=== PATIENT | male | born 1950 | race Caucasian/White ===

== ENCOUNTER 2019-05-05 09:17 | Outpatient (RCR) | payer MEDICARE, SELFPAY | END 2019-08-03 23:59 | disposition home or self-care (01) | LOC: ANHDMC 09:17 | PROVIDERS: PCP Internal Medicine; Visit Provider Surgery | DX: E11.40 Type 2 diabetes mellitus with diabetic neuropathy, unspecified (principal); Z71.89 Other specified counseling | CPT/HCPCS: G0108 ==

== ENCOUNTER 2019-12-15 09:59 | Outpatient (CLI) | payer MEDICARE, SELFPAY ==
--- NOTE | ~2019-12-15 | CT_ITS ---
EXAMINATION: CT abdomen pelvis w con DATE: 12/15/2019 10:54 INDICATION: Low abdominal pain. Constipation. TECHNIQUE: Computed tomography (CT) of the abdomen and pelvis was performed with 100 mL Omnipaque 350 intravenous contrast. Automated exposure control and iterative reconstruction technique were employe d. The dose-length product was 1528.59 mGy-cm. COMPARISON: None. FINDINGS: The visualized portions of the lung bases demonstrate mild atelectasis. A calcified left soruav ng nodule is consistent with old granulomatous disease. No pleural effusion. The heart size is normal . No pericardial effusion. There are coronary artery calcifications. The liver, gallbladder, pancreas , adrenal glands, and kidneys are normal. Calcifications in the spleen are consistent with old granul omatous disease. The prostate is moderately enlarged. There is diverticulosis of the colon without ev idence of diverticulitis. There are no dilated loops of bowel. The appendix is not visualized. There is a small sliding hiatal hernia. There are no pathologically enlarged lymph nodes. There is no free intraperitoneal fluid. There is lumbar levoscoliosis and severe spondylosis. IMPRESSION: 1. Small sliding hiatal hernia. Reviewed, dictated and finalized at location A.
[2019-12-15 10:19] LABS: Estimated Glomerular Filt Rate 59
== END 2019-12-15 10:00 | disposition home or self-care (01) ==
LOC: CHSIMG 10:01
PROVIDERS: PCP Internal Medicine; Visit Provider Internal Medicine
DX: R10.9 Unspecified abdominal pain (principal); R19.4 Change in bowel habit
CPT/HCPCS: 74177; Q9965

== ENCOUNTER 2019-12-27 00:08 | Outpatient (CLI) | payer MEDICARE, SELFPAY ==
[2019-12-27 18:54] LABS: SARS-CoV-2 RNA PCR Negative
== END 2019-12-27 00:09 | disposition home or self-care (01) ==
LOC: ANHCOVIDDT 00:08
PROVIDERS: PCP Internal Medicine; Visit Provider Internal Medicine Gastroenterology
DX: Z01.812 Encounter for preprocedural laboratory examination (principal); Z11.59 Encounter for screening for other viral diseases
CPT/HCPCS: 87635; C9803; U0003

== ENCOUNTER 2019-12-29 01:52 | Day surgery (SDC) | payer MEDICARE, SELFPAY ==
[2019-12-23 10:58] VITALS: BMI 35.8
[2019-12-29 07:12] VITALS: BP 163/78; PULSE 58; RESP 16; TEMP 36.1; O2SAT 100; BMI 35.8
[2019-12-29] MEDS: LACTATED RINGERS 1,000 ML 150 ML IV CONT (07:30)
--- NOTE | 2019-12-29 08:05 | WPDGICN ---
Assessment and Plan Assessment and plan (1) Family history of colonic polyps: Code(s): Z83.71 - Family history of colonic polyps Status: Acute Assessment and Plan: Patient's father had colon polyps. For this reason surveillance colonoscopy has been advised every 5 years. Colonoscopy will be performed today. (2) Change in bowel habit: Code(s): R19.4 - Change in bowel habit Status: Acute Assessment and Plan: Patient reports alteration in his bowel habits. Currently on MiraLax daily which should continue. Fiber supplement such as FiberCon or Metamucil daily also advised. Further recommendations may be given after colonoscopy. GI Consult Note Consult date/time: 12/29/19 08:05 HPI: Yossi Justin is a 69 year old male Presents for screening colonoscopy. His father had colon polyps. Patient states that he has recently had difficulties with constipation. He has tried MiraLax with some relief. He denies any blood in his stools his weight has remained stable. Patient's last exam was 5 years ago was essentially unremarkable. Patient denies any abdominal pain. Review of Systems Review of Systems: All systems reviewed & are unremarkable except as noted in HPI and below Meds Home Medications and Allergies Home Medications Medication Instructions Recorded Confirmed Type fluticasone propionate 2 spray INTRANASAL DAILY 12/23/19 12/23/19 History losartan-hydrochlorothiazide 1 tablet PO DAILY 12/23/19 12/23/19 History meloxicam 15 mg PO DAILY 12/23/19 12/23/19 History metformin 500 mg PO BID 12/23/19 12/23/19 History tamsulosin 0.4 mg PO DAILY 12/23/19 12/23/19 History Allergies Allergy/AdvReac Type Severity Reaction Status Date / Time No Known Allergies Allergy Verified 12/29/19 07:11 Vital Signs Vital Signs - 24 hr 12/29/19 07:12 Temperature 36.1 C L Pulse Rate 58 L Respiratory Rate 16 Blood Pressure 163/78 H Pulse Oximetry 100 Exam Narrative: Exam Narrative: Physical exam reveals patient to be alert. Vital signs stable. HEENT exam unremarkable. Lungs are clear to auscultation and percussion. Heart is without murmur or extra sounds. Abdominal exam bowel sounds are present soft nontender with no organomegaly. Digital external rectal exam normal.
--- NOTE | 2019-12-29 08:09 | P.PNAN_ITS ---
Anes - Initial Pre Proc Eval Procedure: Operation Date: 12/29/19 08:30 Proposed Procedures p Screening Colonoscopy - Solo Andino MD Date/Time: 12/29/19 08:09 Surgeon: Solo Andino MD Pre Op Diagnosis: family hx colon polyps Patient Data Age: 69 Gender: M Height: 6 ft 3 in Weight: 130 kg Last Vital Signs Temp 97.0 F L 12/29/19 07:12 Pulse 58 L 12/29/19 07:12 Resp 16 12/29/19 07:12 BP 163/78 H 12/29/19 07:12 Pulse Ox 100 12/29/19 07:12 Allergies Allergy/AdvReac Type Severity Reaction Status Date / Time No Known Allergies Allergy Verified 12/29/19 07:11 Home Medications Medication Instructions Recorded Confirmed Type fluticasone propionate 2 spray INTRANASAL DAILY 12/23/19 12/23/19 History losartan-hydrochlorothiazide 1 tablet PO DAILY 12/23/19 12/23/19 History meloxicam 15 mg PO DAILY 12/23/19 12/23/19 History metformin 500 mg PO BID 12/23/19 12/23/19 History tamsulosin 0.4 mg PO DAILY 12/23/19 12/23/19 History Patient hx anesthesia problems: none Family hx anesthesia problems: none [facility] Past Medical History Medical History (Updated 12/29/19 @ 08:09 by Giles Kebede MD) Arthritis Diabetes Obesity Peripheral neuropathy Anes - Eval Final PreProcedure Day of Procedure 12/29/19 08:09 Patient weight: obese Heart: regular rate and rhythm Lungs: clear to auscultation Airway: Mallampati scale class III Neurological: alert and oriented Last oral intake: >/= 8 hours ASA classification: III Emergent: no Anesthetic plan: proceed Anesthesia type and monitoring: general GIVS and standard monitoring Informed Consent: The patient's anesthetic plan and its attendant risks and benefits were discussed with the patient/family/POA. Questions were solicited and answers provided to the satisfaction of the patient/family/POA.
[2019-12-29 08:58] VITALS: BP 123/70; PULSE 61; RESP 20; O2SAT 95
[2019-12-29 09:08] VITALS: BP 136/75; PULSE 53; RESP 22; O2SAT 96
[2019-12-29 09:18] VITALS: BP 147/87; PULSE 56; RESP 17; O2SAT 96
[2019-12-30 13:30] LABS: Glucose Point of Care 109 (65-105)
== END 2019-12-29 09:27 | disposition home or self-care (01) ==
PROVIDERS: PCP Internal Medicine; Visit Provider Internal Medicine Gastroenterology
PROC: 0DJD8ZZ Inspection of Lower Intestinal Tract, Via Natural or Artificial Opening Endoscopic (ICD-10-PCS; CPT 45378; principal; 2019-12-29 08:30)
DX: Z12.11 Encounter for screening for malignant neoplasm of colon (principal); K57.30 Diverticulosis of large intestine without perforation or abscess without bleeding; K64.8 Other hemorrhoids; Z83.71 Family history of colonic polyps; E11.40 Type 2 diabetes mellitus with diabetic neuropathy, unspecified; E66.9 Obesity, unspecified; Z68.35 Body mass index [BMI] 35.0-35.9, adult; Z79.84 Long term (current) use of oral hypoglycemic drugs
CPT/HCPCS: G0105; J2704; J7120

== ENCOUNTER 2020-12-25 15:19 | Outpatient (CLI) | payer MEDICARE, SELFPAY ==
--- NOTE | 2020-12-25 15:26 | ECG_ITS ---
Measurements Intervals [place] Rate: 54 P: 69 [place]: 210 QRS: -8 QRSD: 133 T: 22 QT: 412 QTc: 393 Interpretive Statements SINUS BRADYCARDIA WITH FIRST DEGREE AV BLOCK RIGHT BUNDLE BRANCH BLOCK ABNORMAL ECG Electronically Signed On 12-25-2020 15:44:07 CDT by Amrik Fonseca D.O.
== END 2020-12-25 15:20 | disposition home or self-care (01) ==
LOC: CHSCARD 15:23
PROVIDERS: PCP Internal Medicine; Visit Provider Internal Medicine Cardiovascular Disease
DX: R06.00 Dyspnea, unspecified (principal)
CPT/HCPCS: 93005

== ENCOUNTER 2021-01-15 11:10 | Outpatient (CLI) | payer MEDICARE, SELFPAY | END 2021-01-15 11:11 | disposition home or self-care (01) | LOC: CHSCARD 11:11 | PROVIDERS: PCP Internal Medicine; Visit Provider Internal Medicine Cardiovascular Disease | DX: R06.00 Dyspnea, unspecified (principal) | CPT/HCPCS: 99199 ==

== ENCOUNTER 2021-02-05 10:56 | Outpatient (CLI) | payer MEDICARE, SELFPAY ==
--- NOTE | 2021-02-05 12:30 | EST_ITS ---
Patient Info Name: Yossi Justin Age: 70 years : 1950 Gender: Male Ht: 74 in Wt: 294 lbs BSA: 2.69 m2 Exam Date: 02/05/2021 12:17 PM Exam Location: [facility] Patient Status: Outpatient Admit Date: 02/05/2021 Staff Ordering Physician: Amrik Fonseca DO Attending Provider: DO JADA Exam Type: CA stress evelyne w NM Summary 1. 1. Negative lexiscan stress test for ischemic ST changes by ECG criteria. 2. 2. Stable hemodynamics throughout the test. 3. 3. Nuclear scan to follow and will be reported separately. Please correlate with it. 4. 4. Patient informed of the above results. Protocol: LEXISCAN Stress ECG Details Stage: REST Duration (min): 1 min : 9 sec HR (bpm): 56 SBP (mmHg): 127 DBP (mmHg): 71 Stage: REST Duration (min): 16 min : 0 sec HR (bpm): 51 SBP (mmHg): 127 DBP (mmHg): 71 Stage: STAGE 1 Duration (min): 0 min : 9 sec HR (bpm): 51 SBP (mmHg): 127 DBP (mmHg): 71 Stage: RECOVERY Duration (min): 0 min : 50 sec HR (bpm): 61 SBP (mmHg): 127 DBP (mmHg): 71 Stage: RECOVERY Duration (min): 1 min : 50 sec HR (bpm): 90 SBP (mmHg): 127 DBP (mmHg): 71 Stage: RECOVERY Duration (min): 2 min : 50 sec HR (bpm): 70 SBP (mmHg): 139 DBP (mmHg): 72 Stage: RECOVERY Duration (min): 3 min : 50 sec HR (bpm): 64 SBP (mmHg): 145 DBP (mmHg): 70 Stage: RECOVERY Duration (min): 4 min : 50 sec HR (bpm): 66 SBP (mmHg): 145 DBP (mmHg): 70 Stage: RECOVERY Duration (min): 5 min : 50 sec HR (bpm): 65 SBP (mmHg): 128 DBP (mmHg): 71 Stage: RECOVERY Duration (min): 6 min : 2 sec HR (bpm): 63 SBP (mmHg): 128 DBP (mmHg): 71 Rest HR: 51 bpm Peak HR: 92 bpm Rest Sys BP: 127 mmHg Peak Sys BP: 145 mmHg Max Pred HR: 148 bpm % Max Pred HR: 62 % Target HR: 126 bpm Max RPP: 13,340 bpm*mmHg Termination Reason: Completed protocol Cardiac Symptoms: Chest pain Total Time: 0 min : 9 sec Rest Tseven BP: 71 mmHg Peak Steven BP: 70 mmHg Total Dose: 0.4 mg Resting ECG Sinus rhythm. Stress ECG No ST changes. Arrhythmias None. Report Signatures
--- NOTE | 2021-02-05 14:32 | WPDCARIOSTRE ---
Nuclear Stress Test INDICATIONS Indications: Preop, [place]. PROCEDURE Procedure Performed: Myocardial Perf Spect-Multi Procedure: Patient underwent a lexiscan stress test and immediately was injected with 33.4 mCi of cardiolyte. Multiple tomographic images were obtained. These are of good quality. There is evidence of moderate size, moderate severity inferior perfusion defect and small size, mild severity basal lateral perfusion defect during stress imaging. A separate resting images were obtained after patient was injected with 10.8 mCi of cardiolyte. Multiple tomographic images were obtained. These are of good quality. There is evidence of moderate size, moderate severity inferior perfusion defect and small size, mild severity basal lateral perfusion defect during rest imaging. CONCLUSION Conclusion: 1. Myocardial perfusion imaging demonstrates fixed moderate inferior and fixed small basal lateral defects suggestive of diaphragmatic attenuation artifacts. 2. No evidence of reversible ischemia. 3. Left ventriculogram demonstrates normal measured ejection fraction at 61%. No wall motion abnormalities. 4. TID score is normal at 0.99.
== END 2021-02-05 10:57 | disposition home or self-care (01) ==
LOC: CHSIMG 10:58
PROVIDERS: PCP Internal Medicine; Visit Provider Internal Medicine Cardiovascular Disease
DX: R06.00 Dyspnea, unspecified (principal)
CPT/HCPCS: 78452; 93017; A9502; J2785

== ENCOUNTER 2021-09-11 11:37 | Outpatient (CLI) | payer MEDICARE, SELFPAY ==
[2021-09-11 12:54] LABS: Basophils Absolute Auto 0.1 K/mm3 (0.0-0.1); Basophils Percent Auto 0.7 % (0.2-1.2); Eosinophils Absolute Auto 0.3 K/mm3 (0-0.3); Eosinophils Percent Auto 3.1 % (0-4.4); Hematocrit 41.8 % (42.0-52.0); Hemoglobin 13.7 g/dL (14.0-18.0); Immature Granulocyte Absolute 0.02 K/mm3 (0.00-0.031); Immature Granulocyte Percent A 0.2 % (0-0.5); Lymphocytes Absolute Auto 1.61 K/mm3 (0.9-3.2); Lymphocytes Percent Auto 18.4 % (18.3-44.2); Mean Corpuscular HGB Conc 32.8 g/dl (32-36); Mean Corpuscular Hemoglobin 29.1 pg (26-34); Mean Corpuscular Volume 88.9 fl (80-100); Mean Platelet Volume 8.5 fl (7.4-10.4); Monocytes Absolute Auto 0.8 K/mm3 (0.1-0.6); Monocytes Percent Auto 8.8 % (2.6-8.5); Neutrophils Percent Auto 68.8 % (45.5-73.1); Platelet Count Result 275 k/mm3 (150-375); Red Cell Distribution Width 14.4 % (11.5-14.5); White Blood Count 8.8 K/mm3 (4.5-10.0)
[2021-09-11 13:18] LABS: Hemoglobin A1C 6.1 % (<5.7)
[2021-09-11 13:47] LABS: Albumin Level 4.4 g/dL (3.5-5.1); Anion Gap 9 mmol/L (8-16); Blood Urea Nitrogen 19 mg/dL (9-20); Calcium 9.3 mg/dL (8.4-10.2); Carbon Dioxide 26 mmol/L (22-30); Chloride 94 mmol/L (98-107); Estimated Glomerular Filt Rate > 60; Glucose 99 mg/dL (65-110); Potassium 4.7 mmol/L (3.4-5.0); Sodium 129 mmol/L (137-145)
[2021-09-11 13:50] LABS: Urine Cotinine NEGATIVE
== END 2021-09-11 11:38 | disposition home or self-care (01) ==
LOC: ANHSURGERY 11:42
PROVIDERS: PCP Internal Medicine; Visit Provider Orthopaedic Surgery
DX: M17.0 Bilateral primary osteoarthritis of knee (principal); Z01.818 Encounter for other preprocedural examination
CPT/HCPCS: 80048; 80307; 82040; 83036; 85025; 86850; 86900; 86901; 87070; 87147; 87181; 87186

== ENCOUNTER 2021-09-21 07:56 | Outpatient (CLI) | payer MEDICARE, SELFPAY ==
[2021-09-21 08:33] LABS: Anion Gap 8 mmol/L (8-16); Blood Urea Nitrogen 19 mg/dL (7-18); Calcium 9.4 mg/dL (8.5-10.1); Carbon Dioxide 29 mmol/L (21-32); Chloride 97 mmol/L (98-108); Estimated Glomerular Filt Rate > 60; Glucose 109 mg/dL (70-99); Osmolality Calculated 281 mOsm/kg (285-295); Potassium 4.5 mmol/L (3.5-5.1); Sodium 134 mmol/L (136-145)
== END 2021-09-21 07:57 | disposition home or self-care (01) ==
PROVIDERS: PCP Internal Medicine; Visit Provider Internal Medicine
DX: E87.1 Hypo-osmolality and hyponatremia (principal)
CPT/HCPCS: 36415; 80048

== ENCOUNTER 2021-09-24 00:45 | Day surgery (SDC) | payer MEDICARE, SELFPAY ==
--- NOTE | 2021-09-11 11:45 | PC.NURSE ---
Report to the Outpatient Waiting Room, entrance under the green pavilion located off [facility], at time _0600_ on date _09/24/21_. OR Time: _0730_. - You and your visitor will be asked a series of questions to screen for COVID 19 for your protection. - A mask is required within the hospital. One visitor will be allowed to accompany the patient into the hospital. Patients visitor will be instructed to remain with patient at all times or leave the building. VISITING HOURS 10AM-7PM, USE MAIN ENTRANCE Preoperative COVID Testing Requirements: NONE Patients may have clear liquids (water, carbonated beverages, clear teas, apple juice) until 3 hours prior to surgery (0430 AM) with a maximum of 20 ounces. - No food from midnight until time of surgery Take the following medications with a SIP of water the morning of surgery: __EYE DROPS, PAIN PILL IF NEEDED__ Medications to discontinue per DR. CHAIDEZ - _MELOXICAM, GLUCOSAMINE CHONDROITIN 7 DAYS PRIOR TO SURGERY, LAST DOSE TO BE TAKEN ON 09/16/21__ Medications to discontinue per ANESTHESIA - _ALL VITAMINS & HERBAL SUPPLEMENTS 3 DAYS PRIOR TO SURGERY, LAST DOSE TO BE TAKEN ON 09/20/21 Please no deodorant, or body powder the day of surgery. No jewelry (including any body piercings) or valuables the day of surgery, leave them at home. Please take a shower or bath the night before, or the morning of, surgery with an antibacterial soap. Wear comfortable, loose fitting clothing. - Jewelry must be removed prior to entering the operating room. Rings and piercings that are not removed may be cut off. - The hospital will not accept responsibility for valuables. - Please leave all valuables, including medications, at home the day of surgery. If you are going home after surgery, a licensed yard driver must drive you home. - NO public transportation without another adult. - We recommend that an adult stay with you for 24 hours following discharge. - We also recommend that you do not drive, make important decision, drink alcoholic beverages, or take any drugs that were not prescribed by your health care provider for at least 24 hours after your discharge time. Follow any additional instructions given to you from your surgeon. TOTAL JOINT CLASS 09/12/21 @ [address] [place] [address], USE MAIN ENTRANCE, LOWER LEVEL Instructions given to ____PT and asked if any additional questions and then verbalized understanding. Patient advised to call surgeon office or pre surgery nurse liaisonKARINE [phone] if any additional questions.
[2021-09-11 12:39] VITALS: BP 158/86; PULSE 54; RESP 20; TEMP 36.8; O2SAT 97; BMI 35.7
--- NOTE | 2021-09-21 09:20 | PM.IMHP ---
H&P: HPI History of Present Illness Date/Time: 09/21/21 09:20 71-year-old male patient of Dr. Jeffrey who presents today for a left total knee arthroplasty and cortisone injection into the right knee. Patient has severe medial compartment osteoarthritis in both knees. His left knee is more bothersome than the right. He has had cortisone injections in his knees in the past he has also been on meloxicam daily without improvement of his symptoms. His last cortisone injections were in March of 2021. patient has reached a point where he feels he is ready to proceed with total knee arthroplasty rather continue nonsurgical treatment. Chief Complaint: Right and left knee DJD Review of Systems Review of Systems: All systems reviewed & are unremarkable except as noted in HPI and below PMFSH Past Medical History Medical History Arthritis Diabetes Obesity Peripheral neuropathy Social History Social History Smoking status: Never smoker Second hand tobacco smoke exposure: No Additional smoking assessment comments: PT DENIES ALL FORMS OF TOBACCO USE Alcohol intake: never Substance use: never Substance use type: does not use Spiritual care concerns: No Meds Home Medications and Allergies Home Medications Medication Instructions Recorded Confirmed Type fluticasone propionate 2 spray INTRANASAL DAILY PRN 12/23/19 09/11/21 History losartan-hydrochlorothiazide 0.5 tablet PO BID 12/23/19 09/11/21 History meloxicam 15 mg PO DAILY 12/23/19 09/11/21 History metformin 1,000 mg PO BID 12/23/19 09/11/21 History tamsulosin 0.4 mg PO BID 12/23/19 09/11/21 History ketorolac 0.4 % eye drops 1 drp RIGHT EYE HS 06/18/21 09/11/21 History timolol 0.5 % eye drops 1 drp RIGHT EYE Q12H 06/18/21 09/11/21 History Ebn3-B3 Suppliment 1 tab-cap DAILY 09/11/21 History apple cider vinegar 1 cap DAILY 09/11/21 09/11/21 History glucos sul 1OLz-pay-nmmdm-C-Mn 1 cap PO DAILY 09/11/21 09/11/21 History [Glucosamine Chondroitin] hydrocodone-acetaminophen 1 tablet Q4-6H PRN 09/11/21 09/11/21 History Allergies Allergy/AdvReac Type Severity Reaction Status Date / Time No Known Allergies Allergy Verified 09/11/21 11:58 Exam Narrative: 71-year-old male alert pleasant. He is 6 ft 1 in height and 284 lb. His BMI is 37.5. Left knee range of motion is from 5-120 degrees. He has mild effusion. Varus alignment is mild. He does have pseudolaxity to valgus stress. 2+ dorsalis pedis and posterior tibial artery pulse. Skin is normal and healthy. Does have history of mild neuropathy in his feet due to his diabetes. Normal quad strength. No edema in lower extremities. Resp: Auscultation: clear to auscultation bilaterally Cardio: Rate: regular rate Rhythm: regular rhythm Assessment and Plan Additional Plan 71-year-old male has severe medial compartment osteoarthritis in both knees. He has had continued symptoms and feels this point is ready to proceed with total knee arthroplasty. Surgical procedure as well as the risks and complications were discussed in detail and all questions were answered we will proceed. Patient will stop his meloxicam and any other aspirin ibuprofen products 1 week prior surgery. Patient will see his primary care doctor for pre-surgical clearance. He has seen Dr. Fonseca, the supervisor car installations and has been cleared. He had a stress test done in January of 2021 which showed no reversible ischemia. He had a fixed inferior and lateral defect. Previous EKGs have shown sinus bradycardia with 1st degree AV block and a right bundle branch block as well. He has been cleared from Cardiology. Patient's nasal swab did grow oxacillin sensitive Staph aureus and he has been decal and I zinc as of 321. his Chem panel creatinine is 1.10 rest of his Chem panel showed sodium at 129, his primary care doctor was going to retest this on 324. hemo
[2021-09-24] VITALS (18 sets, daily range): BP systolic 90–153; BP diastolic 50–86; PULSE 63–94; RESP 10–23; TEMP 35.8–36.8; O2SAT 90–99
--- NOTE | ~2021-09-24 | XR_ITS ---
EXAMINATION: XR knee LT 2V DATE: 09/24/2021 11:00 INDICATION: Total left knee arthroplasty. Postop. TECHNIQUE: 2 views of left knee were obtained. COMPARISON: Left knee radiographs 03/09/2009 FINDINGS: There is a total left knee arthroplasty without patellar resurfacing in near-anatomic align ment. No fracture. There are small osteophytes of the patella. There is gas in the knee joint and sof t tissues, consistent with recent surgery. IMPRESSION: 1. Total left knee arthroplasty in near-anatomic alignment. Reviewed, dictated and finalized at location A.
[2021-09-24] MEDS: ACETAMINOPHEN 500 MG TABLET 1000 MG PO ×3 (06:27→23:49)
[2021-09-24] MEDS: LACTATED RINGERS 1,000 ML 30 ML IV CONT ×2 (06:40→10:59)
[2021-09-24] MEDS: TRANEXAMIC ACID 1,000MG/ISO100 1,000 MG/100 ML BAG 200 MG IVPB (06:54)
--- NOTE | 2021-09-24 07:05 | WPDANESEPPF ---
Anes - Initial Pre Proc Eval Procedure: Operation Date: 09/24/21 07:30 Proposed Procedures p Left Total Knee Arthroplasty, Right Knee Cortisone Injection - Taz Doherty MD Date/Time: 09/24/21 07:05 Surgeon: Taz Doherty MD Pre Op Diagnosis: oa bilateral knees Patient Data Age: 71 Gender: M Height: 1.91 m Weight: 129.7 kg Last Vital Signs Temp 36.8 C 09/11/21 12:39 Pulse 54 L 09/11/21 12:39 Resp 20 09/11/21 12:39 BP 158/86 H 09/11/21 12:39 Pulse Ox 97 09/11/21 12:39 Allergies Allergy/AdvReac Type Severity Reaction Status Date / Time No Known Allergies Allergy Verified 09/24/21 06:28 Home Medications Medication Instructions Recorded Confirmed Type fluticasone propionate 2 spray INTRANASAL DAILY PRN 12/23/19 09/24/21 History meloxicam 15 mg PO DAILY 12/23/19 09/24/21 History metformin 1,000 mg PO BID 12/23/19 09/24/21 History tamsulosin 0.4 mg PO BID 12/23/19 09/24/21 History ketorolac 0.4 % eye drops 1 drp RIGHT EYE HS 06/18/21 09/24/21 History timolol 0.5 % eye drops 1 drp RIGHT EYE Q12H 06/18/21 09/24/21 History Ebn3-B3 Suppliment 1 tab-cap PO DAILY 09/11/21 09/24/21 History apple cider vinegar 1 cap DAILY 09/11/21 09/24/21 History glucos sul [id number]-C-Mn 1 cap PO DAILY 09/11/21 09/24/21 History [Glucosamine Chondroitin] hydrocodone-acetaminophen 1 tablet Q4-6H PRN 09/11/21 09/24/21 History hydralazine 50 mg PO TID 09/24/21 09/24/21 History ECG: Electrophysiology:: 12/18/20 Sinus bradycardia with first degree AV block, RBBB. Other studies: Stress Tests:: 02/05/21 Lexiscan myoview: No reversible ischemia. Fixed inferior and lat defects. Patient hx anesthesia problems: none Family hx anesthesia problems: none Results Review: All pre-operative results and documents have been reviewed as part of the pre-operative evaluation. [facility] Past Medical History Medical History (Updated 09/24/21 @ 07:07 by Demetrius Lucio MD) Arthritis Atrial fibrillation Diabetes Hypertension Obesity MARTHA on CPAP Peripheral neuropathy Social History Social History Smoking status: Never smoker Second hand tobacco smoke exposure: No Additional smoking assessment comments: PT DENIES ALL FORMS OF TOBACCO USE Alcohol intake: never Substance use: never Substance use type: does not use Living arrangements: with family Spiritual care concerns: No Anes - Eval Final PreProcedure Day of Procedure 09/24/21 07:05 Patient weight: obese Heart: regular rate and rhythm Lungs: clear to auscultation and normal air movement Airway: Mallampati scale class II Neurological: alert and oriented Last oral intake: >/= 8 hours ASA classification: III Emergent: no Anesthetic plan: proceed Anesthesia type and monitoring: general LMA and ETT Results Review: All pre-operative results and documents have been reviewed as part of the pre-operative evaluation. Informed Consent: The patient's anesthetic plan and its attendant risks and benefits were discussed with the patient/family/POA. Questions were solicited and answers provided to the satisfaction of the patient/family/POA.
--- NOTE | 2021-09-24 07:08 | WPDHPUPDATE1 ---
History and Physical Update Update Date/Time: 09/24/21 07:08 History and Physical has been reviewed, including an updated exam of the patient. There are NO changes in the patient's condition. Risks, benefits, and alternatives have been discussed and questions answered. Patient agrees to proceed with procedure.
[2021-09-24 07:10] LABS: Glucose Point of Care 135 mg/dl (65-105)
[2021-09-24] MEDS: ceFAZolin 3 GM/D5W 100 ML 100 ML IVPB (07:30)
[2021-09-24] MEDS: methylPREDNISolone ACETATE 80 MG/ML VIAL IM (07:53)
[2021-09-24] MEDS: ceFAZolin SODIUM 1 GM VIAL 3 GM IRRIGATION (07:54)
[2021-09-24] MEDS: TRANEXAMIC ACID 1,000 MG/10 ML AMPUL 1000 MG IV PUSH (09:56)
[2021-09-24] MEDS: ceFAZolin SODIUM 1 GM VIAL 2 GM IV PUSH (09:57)
--- NOTE | 2021-09-24 10:35 | W.PM.PROC2 ---
Procedure Note - Detailed Date of Procedure 09/24/21 Pre-op Diagnosis oa bilateral knees Post-op Diagnosis Same Procedure Performed Cortisone injection right knee, left total knee arthroplasty Surgeon Taz Doherty MD Medical Tech [facility] Anesthesia General Description of Procedure Patient was brought to the operating room and general anesthesia was administered. The right knee skin was prepped with the chlorhexidine wipes and 80 mg of Depo-Medrol and 3 cc 1% lidocaine were injected into the right knee without difficulty. Patient received 3 g of Ancef 2 g of vancomycin preoperatively 1 g of tranexamic acid. The left leg was prepped draped usual fashion. Limb was exsanguinated tourniquet elevated to 300 mmHg. An 8 in longitudinal midline incision was used and a standard parapatellar arthrotomy was utilized. Infrapatellar and suprapatellar fat pads were excised a quadriceps synovectomy carried out. The patella had normal articular cartilage. Tiny osteophytes were trimmed and a minor lateral facetectomy was performed. A guide elias was inserted down the femoral canal after aspiration of canal contents using the 5 degree valgus cutting bushing 9 mm of bone removed the distal femur. Because of wear medially this removed about 8 from the medial side. Next the tibial plateau was cut making a cut just under the articular cartilage and just under the area of bone where the medial femoral condyle this removed about 8 mm laterally. Cut was made perpendicular to the axis of the tibia. This Koul remnants were excised. Some loose bodies in the posterior compartment were removed. He had a large popliteal cyst to drain freely into the posterior aspect of the knee. Anteromedial and medial tibial osteophytes removed. In extension the knee was just slightly tighter medially than laterally. At 90? of flexion spacer block showed an 8 mm gap medially and 12 mm gap laterally. Both were tight. The femoral sizing guide was applied the femur at 5? of external rotation which matched Whitesides line posterior referencing pinholes were placed and the 75 Clan of the [employer] cutting block applied the femur AP and chamfer cuts were made and the 75 fit well. At 90? we inserted the 10 mm CR insert and it was quite tight both medially and laterally. The knee lacked about 5 or 7? of extension at this point. Therefore an additional 2 or 2-1/2 mm of bone removed from the tibial plateau. This actually got us below the remaining articular cartilage in the posterior aspect medial tibial plateau. The tibia was then punched. We sized the tibia to a size 79. The 83 tibia was just a little too big and was going to overhang about a mm either anteromedially or posterior laterally. The 75 fit nicely. We made sure there was rocking of the tray and this was punched. We then trialed and we found that now the 12 mm came out to full extension. There was 1-2 mm of medial opening 3-4 mm of lateral opening. We trialed with the 13 which lacked about 3?-4 degrees extension but still had similar play. In flexion the 13 was excellent. It allowed flexion 135 with no gapping medially or laterally on valgus or varus stress. We removed posterior femoral osteophytes and performed a central posterior capsular release from the distal femur conservatively and trialed again with a 13 and this time the knee came to full extension with a negative bounce with only 1 mm of medial opening to lateral opening in full extension. Patellar tracking was excellent. Lug holes were drilled in the femur. The step drill was used to make multiple perforations in bone of the tibial plateau and the distal femur as this bone was dense. Bony surfaces were thoroughly irrigated and dried. Using 2 batches of methylmethacrylate 1 with gentamicin powder cement was immediately applied the 79 tibial component and then the 75 left CR femoral component. Cement was applied to the tibia pressurized in the tibial component fully seated. Cement
[2021-09-24 11:25] LABS: Glucose Point of Care 140 mg/dl (65-105)
--- NOTE | 2021-09-24 13:00 | ADMGEN ---
This patient, Yossi Justin, was admitted to 2 Medical Room 260-01. Patient/family oriented to hospital policies and general routines including ID bracelet, bed and alarms, visiting hours, pain management, procedures, bathroom and other care routines, personal items, smoking policy, room service/diet, and visiting hours. Information on how to activate the Rapid Response Team has been discussed. Patient/Family are encouraged to report perceived risks to care and to ask questions if they do not understand what they are told or what they should do.
[2021-09-24] MEDS: hydrALAZINE HCL 50 MG TABLET PO ×2 (14:44→16:19)
--- NOTE | 2021-09-24 14:45 | WPDCN ---
Assessment and Plan Assessment and plan (1) Osteoarthritis of both knees: Code(s): M17.0 - Bilateral primary osteoarthritis of knee Status: Acute Assessment and Plan: Postoperative day 0. Status post right knee injection and left total knee replacement. Wound care, pain control, and DVT prophylaxis deferred to Dr. Doherty. I have ordered a 1 time dose of diazepam 5 mg to see if this will help with his spasms. PT/OT consulted. Labs ordered for a.m. (2) Type 2 diabetes mellitus: Code(s): E11.9 - Type 2 diabetes mellitus without complications Status: Acute Assessment and Plan: Well controlled with recent A1c of 6.1%. Resume Metformin. Initiate sliding scale, Accu-Cheks, and hypoglycemic protocol. (3) Hypertension: Code(s): I10 - Essential (primary) hypertension Status: Acute Assessment and Plan: Records reviewed and the stable. Resume antihypertensives and monitor blood pressures daily (4) Obstructive sleep apnea on CPAP: Code(s): G47.33 - Obstructive sleep apnea (adult) (pediatric); Z99.89 - Dependence on other enabling machines and devices Status: Acute Assessment and Plan: CPAP will be provided for the patient to use while hospitalized. (5) Benign prostatic hyperplasia: Code(s): N40.0 - Benign prostatic hyperplasia without lower urinary tract symptoms Status: Acute Assessment and Plan: Continue tamsulosin. Monitor I/O postoperatively to ensure he is not retaining urine. Additional Plan Thank you for allowing us to participate in this patient's care. Please do not hesitate to contact us with any questions. Supervising physician for this medical consultation is Dr. Javier Byrne. HPI Data of Consult Date/Time: 09/24/21 14:45 Requesting Physician: Taz Doherty MD Primary Care Provider: Gretchen Jeffrey MD Reason for consultation: Post-operative medical management. Consult Narrative Narrative: This is a very pleasant 71-year-old male with arthritis, type 2 diabetes mellitus, paroxysmal atrial fibrillation, benign prostatic hyperplasia, and obstructive sleep apnea whom the hospital service has been consulted for management of his medical conditions postoperatively. He has severe medial compartment osteoarthritis in both knees which thus far has been treated conservatively with daily meloxicam and cortisone injections. Unfortunately he continues to have pretty significant pain and in fact he has not been able to put much weight on his left leg whatsoever over the past 5 to 6 weeks due to severe pain and he elected for replacement today. His surgery was performed under general anesthesia with no immediate complications documented an estimated blood loss of 200 mL. He also received a cortisone injection into the right knee. At the time my evaluation he is not having any overt pain but he does complain of pretty significant spasms around the left knee and throughout the leg. He has been up to the bathroom and to the chair and is doing quite well in that regard. He denies paresthesias, skin color, and temperature changes of the surgical leg. He also denies postoperative fever, chills, sweats, chest pain, shortness of breath, nausea, and vomiting. Review of Systems Review of Systems: Twelve systems were reviewed. No fever, chills, or sweats. No recent cold or flu symptoms. He had a history of AFib which was attributed to untreated sleep apnea. He is now compliant with his CPAP at nighttime in he has not had a recurrence to his knowledge. He does not meet criteria for chronic anticoagulation due to his paroxysmal AFib. No history of venous thromboembolism. Diabetes is well controlled with a recent hemoglobin A1c of 6.1%. He denies blurry vision, polydipsia, and polyuria. Except as documented, all other systems were reviewed and are negative. PM
[2021-09-24] MEDS: oxyCODONE HCL (*CRX) 5 MG TAB IR PO ×2 (16:19→20:28)
[2021-09-24] MEDS: metFORMIN HCL XR 500 MG TAB.SR.24H 1000 MG PO (16:19)
[2021-09-24] MEDS: SENNA/DOCUSATE SODIUM TABLET 2 TAB PO (16:19)
[2021-09-24] MEDS: TAMSULOSIN HCL 0.4 MG CAPSULE PO (16:20)
[2021-09-24 16:31] LABS: Glucose Point of Care 266 mg/dl (65-105)
[2021-09-24] MEDS: INSULIN ASPART (*BKC) 100 UNITS/ML SUB-Q (16:31)
[2021-09-24] MEDS: FAMOTIDINE 20 MG TABLET PO (20:28)
[2021-09-24] MEDS: TIMOLOL MALEATE 0.5% OP SOLN 5 ML BOTTLE 1 DROP RIGHT EYE (20:28)
[2021-09-24 20:48] LABS: Glucose Point of Care 132 mg/dl (65-105)
[2021-09-24] MEDS: diazePAM (*CRX) 5 MG TABLET PO (23:49)
[2021-09-25] VITALS (8 sets, daily range): BP systolic 115–144; BP diastolic 55–68; PULSE 66–83; RESP 16–20; TEMP 36.2–36.5; O2SAT 94–98
[2021-09-25] MEDS: oxyCODONE HCL (*CRX) 5 MG TAB IR PO ×4 (00:26→12:46)
[2021-09-25] MEDS: ACETAMINOPHEN 500 MG TABLET 1000 MG PO ×2 (05:49→12:47)
[2021-09-25 06:09] LABS: Basophils Percent Auto 0.1 % (0.2-1.2); Hematocrit 32.6 % (42.0-52.0); Hemoglobin 10.8 g/dL (14.0-18.0); Immature Granulocyte Absolute 0.09 K/mm3 (0.00-0.031); Immature Granulocyte Percent A 0.6 % (0-0.5); Lymphocytes Absolute Auto 0.85 K/mm3 (0.9-3.2); Lymphocytes Percent Auto 5.5 % (18.3-44.2); Mean Corpuscular HGB Conc 33.1 g/dl (32-36); Mean Corpuscular Volume 87.4 fl (80-100); Mean Platelet Volume 8.7 fl (7.4-10.4); Monocytes Absolute Auto 1.3 K/mm3 (0.1-0.6); Monocytes Percent Auto 8.6 % (2.6-8.5); Neutrophils Absolute Auto 13.2 K/mm3 (1.3-6.7); Neutrophils Percent Auto 85.2 % (45.5-73.1); Platelet Count Result 263 k/mm3 (150-375); Red Blood Count 3.73 M/mm3 (4.6-6.20); Red Cell Distribution Width 14.4 % (11.5-14.5); White Blood Count 15.5 K/mm3 (4.5-10.0)
[2021-09-25 06:19] LABS: Alanine Aminotransferase 23 U/L (4-50); Albumin Level 3.7 g/dL (3.5-5.1); Alkaline Phosphatase 63 U/L (38-126); Anion Gap 8 mmol/L (8-16); Aspartate Amino Transferase 38 U/L (17-59); Bilirubin,Total 0.7 mg/dL (0.2-1.3); Blood Urea Nitrogen 23 mg/dL (9-20); Calcium 8.5 mg/dL (8.4-10.2); Carbon Dioxide 24 mmol/L (22-30); Chloride 95 mmol/L (98-107); Estimated CRCL calculation 76 ml/min; Estimated Glomerular Filt Rate > 60; Glucose 150 mg/dL (65-110); Magnesium 1.8 mg/dL (1.6-2.3); Potassium 4.6 mmol/L (3.4-5.0); Sodium 127 mmol/L (137-145)
--- NOTE | 2021-09-25 06:29 | PM.PNORT ---
Subjective Subjective Date/Time Seen: 09/25/21 06:29 POD 1 avss wd-dry pt has been up multiple times yesterday with PT as well as going to restroom, NVI, pain is controlled, pt having no nausea, will plan to have pt work with PT today then d/c to home this afternoon Objective Data Vital Signs Vital Signs: Vital Signs - 24 hr 09/24/21 10:59 09/24/21 11:15 09/24/21 11:30 Temperature 36.8 C Pulse Rate 81 79 80 Respiratory Rate 10 L 14 15 Blood Pressure 90/50 L 106/56 L 117/64 Pulse Oximetry 94 95 96 09/24/21 11:45 09/24/21 12:00 09/24/21 12:15 Temperature Pulse Rate 79 73 76 Respiratory Rate 16 14 14 Blood Pressure 125/66 136/73 129/71 Pulse Oximetry 90 92 92 09/24/21 12:30 09/24/21 12:45 09/24/21 13:00 Temperature 35.8 C L Pulse Rate 72 74 72 Respiratory Rate 18 18 16 Blood Pressure 139/80 141/81 H 137/71 Pulse Oximetry 93 95 95 09/24/21 13:10 09/24/21 13:15 09/24/21 13:45 Temperature 35.8 C L 36.5 C Pulse Rate 76 94 Respiratory Rate 18 19 18 Blood Pressure 131/83 143/86 H Pulse Oximetry 95 93 95 09/24/21 14:35 09/24/21 16:03 09/24/21 20:00 Temperature 36.2 C L Pulse Rate 88 89 89 Respiratory Rate 18 Blood Pressure 134/75 Pulse Oximetry 98 09/24/21 22:35 09/24/21 23:30 09/25/21 00:00 Temperature 36.1 C L Pulse Rate 72 81 83 Respiratory Rate 18 23 H Blood Pressure 138/58 L Pulse Oximetry 96 96 09/25/21 02:17 09/25/21 02:35 09/25/21 04:00 Temperature 36.3 C L Pulse Rate 77 79 80 Respiratory Rate 20 16 Blood Pressure 144/68 H Pulse Oximetry 94 95 Intake/Output Intake/Output: Intake & Output 09/22/21 09/23/21 09/24/21 09/25/21 23:59 23:59 23:59 23:59 Intake Total 1381 50 Balance 1381 50 Meds/Results Medications: Active Medications Generic Name Dose Route Start Last Admin Trade Name Freq PRN Reason Stop Dose Admin Acetaminophen 1,000 mg 09/24/21 18:00 09/25/21 05:49 Acetaminophen 500 Mg Tablet PO 1,000 mg Q6HR JOHN Administration Apixaban 2.5 mg 09/25/21 09:00 Apixaban 2.5 Mg Tablet PO 10/06/21 21:01 Q12HR JOHN Celecoxib 200 mg 09/25/21 08:00 Celecoxib 200 Mg Capsule PO DAILY@0800 JOHN Cephalexin HCl 500 mg 09/25/21 12:00 Cephalexin 500 Mg Capsule PO Q6HR JOHN Dextrose 12.5 gm 09/24/21 15:21 Dextrose 50% 25 Gm/50 Ml Syringe IV PUSH PRN PRN Hypoglycemia Protocol Diphenhydramine HCl 25 mg 09/24/21 12:50 Diphenhydramine Hcl Inj 50 Mg/Ml Vial IV PUSH Q6H PRN Itching Famotidine 20 mg 09/24/21 21:00 09/24/21 20:28 Famotidine 20 Mg Tablet PO 20 mg Q12HR JOHN Administration Fluticasone Propionate 2 spray 09/24/21 12:50 Fluticasone Propionate 0.05% Na Spr 16 Gm Btl (*Bkc) NASAL DAILY PRN Congestion Glucagon 1 mg 09/24/21 15:21 Glucagon For Inj 1 Mg Vial IM PRN PRN Hypoglycemia Protocol Glucose 15 gm 09/24/21 15:21 Glucose Oral Gel 15 Gm Of Glucse In 37.5 Gm Tube PO PRN PRN Hypoglycemia Protocol Hydralazine HCl 50 mg 09/24/21 14:00 09/24/21 16:19 Hydralazine Hcl 50 Mg Tablet PO 50 mg TID JOHN Administration Vancomycin HCl 1,000 mg in 250 mls @ 250 mls/hr 09/24/21 19:00 09/24/21 19:01 Vancomycin 1,000 Mg/D5w 250 Ml IVPB 09/25/21 07:59 Infused Q12H JOHN Infusion Cefazolin Sodium 1 gm in 50 mls @ 100 mls/hr 09/24/21 16:00 09/25/21 00:19 Ancef 1 Gm/D5w 50 Ml Pm IVPB 09/25/21 08:29 Infused Q8H JOHN Infusion Dextrose 1,000 mls @ 100 mls/hr 09/24/21 15:21 Dextrose 5% 1,000 Ml IVPB PRN PRN Hypoglycemia Protocol Insulin Aspart 2 - 5 units 09/24/21 17:00 09/24/21 16:31 Insulin Aspart (*Bkc) 100 Units/Ml SUB-Q 3 units TIDWM JOHN Administration Protocol Magnesium Hydroxide 30 ml 09/24/21 12:50 Magnesium Hydroxide Susp 30 Ml Udc PO BID PRN Constipation Metformin HCl 1,000 mg 09/24/21 17:00 09/24/21 16:19 Met
--- NOTE | 2021-09-25 06:35 | PM.DS ---
DS: Admitting Diagnosis Discharge Date 09/25 Admitting Diagnosis Left knee DJD DS: Summary Hospital Course Hospital Course: Stable Time Spent with Patient Time attestation: Total time spent providing and/or coordinating discharge services: 71-year-old male who underwent left total knee arthroplasty on 09/24. Underwent the procedure without complications. Postoperatively he has been afebrile vital signs are stable. Neurovascular is intact. He was up the day of surgery walking with physical therapy. He was up multiple times overnight using the restroom as well. His pain is well controlled with oxycodone 5 mg as well as scheduled Tylenol and Celebrex 200 mg. He is weight-bearing as tolerated. Patient be discharged home on 09/25. He was advised to keep leg elevated home prevent swelling but also do his exercises every hour while awake at home. Will also go home on Senokot and MiraLax as well as a ten-day course of Keflex. Patient has outpatient therapy starting on . Patient was advise any questions or concerns he is to call the office otherwise we will see him at his appointment date. His wound is dry she has a Mepilex dressing over his knee. DS: Data Data Completed and Pending Labs on day of discharge: Labs from last 24 hours 09/25/21 09/25/21 09/25/21 05:50 05:50 05:50 WBC Pending RBC Pending Hgb Pending Hct Pending MCV Pending MCH Pending MCHC Pending RDW Pending Plt Count Pending MPV Pending Immature Gran % (Auto) Pending Neut % (Auto) Pending Lymph % (Auto) Pending Cassia % (Auto) Pending Eos % (Auto) Pending Baso % (Auto) Pending Lymph # (Auto) Pending Cassia # (Auto) Pending Eos # (Auto) Pending Baso # (Auto) Pending Abs Immat Gran (auto) Pending Absolute Neuts (auto) Pending Absolute Nucleated RBC Pending Nucleated RBC % Pending Sodium 127 L Potassium 4.6 Chloride 95 L Carbon Dioxide 24 Anion Gap 8 BUN 23 H Creatinine 1.10 Estim Creat Clear Calc 76 Estimated GFR > 60 Glucose 150 H POC Capillary Glucose Hemoglobin A1c Pending Calcium 8.5 Magnesium 1.8 Total Bilirubin 0.7 Direct Bilirubin 0.0 AST 38 ALT 23 Alkaline Phosphatase 63 Total Protein 7.0 Albumin 3.7 09/24/21 09/24/21 09/24/21 20:27 16:28 11:19 WBC RBC Hgb Hct MCV MCH MCHC RDW Plt Count MPV Immature Gran % (Auto) Neut % (Auto) Lymph % (Auto) Cassia % (Auto) Eos % (Auto) Baso % (Auto) Lymph # (Auto) Cassia # (Auto) Eos # (Auto) Baso # (Auto) Abs Immat Gran (auto) Absolute Neuts (auto) Absolute Nucleated RBC Nucleated RBC % Sodium Potassium Chloride Carbon Dioxide Anion Gap BUN Creatinine Estim Creat Clear Calc Estimated GFR Glucose POC Capillary Glucose 132 H 266 H 140 H Hemoglobin A1c Calcium Magnesium Total Bilirubin Direct Bilirubin AST ALT Alkaline Phosphatase Total Protein Albumin 09/24/21 06:51 WBC RBC Hgb Hct MCV MCH MCHC RDW Plt Count MPV Immature Gran % (Auto) Neut % (Auto) Lymph % (Auto) Cassia % (Auto) Eos % (Auto) Baso % (Auto) Lymph # (Auto) Cassia # (Auto) Eos # (Auto) Baso # (Auto) Abs Immat Gran (auto) Absolute Neuts (auto) Absolute Nucleated RBC Nucleated RBC % Sodium Potassium Chloride Carbon Dioxide Anion Gap BUN Creatinine Estim Creat Clear Calc Estimated GFR Glucose POC Capillary Glucose 135 H Hemoglobin A1c Calcium Magnesium Total Bilirubin Direct Bilirubin AST ALT Alkaline Phosphatase Total Protein Albumin Discharge Plan Discharge Patient Disposition: Home, Self-Care Discharge Instructions: JULIANNE CHAIDEZ M.D [facility], [address] [address] POST-OPERATIVE D
[2021-09-25 07:39] LABS: Glucose Point of Care 180 mg/dl (65-105)
[2021-09-25] MEDS: metFORMIN HCL XR 500 MG TAB.SR.24H 1000 MG PO (08:21)
[2021-09-25] MEDS: SENNA/DOCUSATE SODIUM TABLET 2 TAB PO (08:22)
[2021-09-25] MEDS: APIXABAN 2.5 MG TABLET PO (08:22)
[2021-09-25] MEDS: hydrALAZINE HCL 50 MG TABLET PO ×2 (08:22→12:47)
[2021-09-25] MEDS: CELECOXIB 200 MG CAPSULE PO (08:22)
[2021-09-25] MEDS: polyethylene glycoL 3350 17 GM POWD.PACK PO (08:23)
[2021-09-25] MEDS: FAMOTIDINE 20 MG TABLET PO (08:23)
[2021-09-25] MEDS: TIMOLOL MALEATE 0.5% OP SOLN 5 ML BOTTLE 1 DROP RIGHT EYE (08:23)
[2021-09-25] MEDS: TAMSULOSIN HCL 0.4 MG CAPSULE PO (08:23)
--- NOTE | 2021-09-25 11:44 | WPDANESPN ---
Anes - Prog Note Post-Op Date/Time: 09/25/21 11:44 Cardiovascular status: normal Respiratory status: normal Airway patency: baseline Mental status: baseline Post-Op hydration status: normal Vital Signs: Last Vital Signs Temp 97.1 F L 09/25/21 10:36 Pulse 66 09/25/21 10:36 Resp 16 09/25/21 10:36 BP 125/58 L 09/25/21 10:36 Pulse Ox 98 09/25/21 10:36 Pain Score (VAS): 10 I/O: Intake & Output 09/24/21 09/25/21 09/25/21 23:59 07:59 15:59 Intake Total 781 800 240 Output Total 400 Balance 781 400 240 Laboratory Tests 09/25/21 05:50 09/25/21 05:50 09/24/21 09/24/21 09/25/21 16:28 20:27 05:50 WBC 15.5 H RBC 3.73 L Hgb 10.8 L Hct 32.6 L MCV 87.4 MCH 29.0 MCHC 33.1 RDW 14.4 Plt Count 263 MPV 8.7 Immature Gran % (Auto) 0.6 H Neut % (Auto) 85.2 H Lymph % (Auto) 5.5 L Gates % (Auto) 8.6 H Eos % (Auto) 0.0 Baso % (Auto) 0.1 L Lymph # (Auto) 0.85 L Gates # (Auto) 1.3 H Eos # (Auto) 0.0 Baso # (Auto) 0.0 Abs Immat Gran (auto) 0.09 H Absolute Neuts (auto) 13.2 H Absolute Nucleated RBC 0.0 Nucleated RBC % 0.0 Sodium Potassium Chloride Carbon Dioxide Anion Gap BUN Creatinine Estim Creat Clear Calc Estimated GFR Glucose POC Capillary Glucose 266 H 132 H Hemoglobin A1c Calcium Magnesium Total Bilirubin Direct Bilirubin AST ALT Alkaline Phosphatase Total Protein Albumin 09/25/21 09/25/21 09/25/21 05:50 05:50 07:37 WBC RBC Hgb Hct MCV MCH MCHC RDW Plt Count MPV Immature Gran % (Auto) Neut % (Auto) Lymph % (Auto) Gates % (Auto) Eos % (Auto) Baso % (Auto) Lymph # (Auto) Gates # (Auto) Eos # (Auto) Baso # (Auto) Abs Immat Gran (auto) Absolute Neuts (auto) Absolute Nucleated RBC Nucleated RBC % Sodium 127 L Potassium 4.6 Chloride 95 L Carbon Dioxide 24 Anion Gap 8 BUN 23 H Creatinine 1.10 Estim Creat Clear Calc 76 Estimated GFR > 60 Glucose 150 H POC Capillary Glucose 180 H Hemoglobin A1c 6.0 H Calcium 8.5 Magnesium 1.8 Total Bilirubin 0.7 Direct Bilirubin 0.0 AST 38 ALT 23 Alkaline Phosphatase 63 Total Protein 7.0 Albumin 3.7 Post-procedural complaints: none Patient Feedback: Patient satisfied with anesthetic care. pt states no pain at rest, however, pain increased to 11 1/2 with movement & therapy
[2021-09-25 11:52] LABS: Glucose Point of Care 107 mg/dl (65-105)
[2021-09-25] MEDS: CEPHALEXIN 500 MG CAPSULE PO (12:47)
--- NOTE | 2021-09-25 13:50 | PM.IMPN ---
Progress Note: A&P Assessment and Plan (1) Osteoarthritis of both knees: Code(s): M17.0 - Bilateral primary osteoarthritis of knee Status: Acute Assessment and Plan: Postoperative day one. Status post right knee injection and left total knee replacement. Wound care, pain control, and DVT prophylaxis deferred to Dr. Doherty. PT/OT consulted. Labs reviewed from this a.m. mild hyponatremia noted likely due to pain recheck labs as an outpatient basis if he goes home (2) Type 2 diabetes mellitus: Code(s): E11.9 - Type 2 diabetes mellitus without complications Status: Acute Assessment and Plan: Well controlled with recent A1c of 6.1%. Resume Metformin. Initiate sliding scale, Accu-Cheks, and hypoglycemic protocol. (3) Hypertension: Code(s): I10 - Essential (primary) hypertension Status: Acute Assessment and Plan: Records reviewed and the stable. Resume antihypertensives and monitor blood pressures daily (4) Obstructive sleep apnea on CPAP: Code(s): G47.33 - Obstructive sleep apnea (adult) (pediatric); Z99.89 - Dependence on other enabling machines and devices Status: Acute Assessment and Plan: CPAP will be provided for the patient to use while hospitalized. (5) Benign prostatic hyperplasia: Code(s): N40.0 - Benign prostatic hyperplasia without lower urinary tract symptoms Status: Acute Assessment and Plan: Continue tamsulosin. Monitor I/O postoperatively to ensure he is not retaining urine. Subjective Date/time seen: 09/25/21 13:50 Interval history: HPI: This is a very pleasant 71-year-old male with arthritis, type 2 diabetes mellitus, paroxysmal atrial fibrillation, benign prostatic hyperplasia, and obstructive sleep apnea whom the hospital service has been consulted for management of his medical conditions postoperatively. He has severe medial compartment osteoarthritis in both knees which thus far has been treated conservatively with daily meloxicam and cortisone injections. Unfortunately he continues to have pretty significant pain and in fact he has not been able to put much weight on his left leg whatsoever over the past 5 to 6 weeks due to severe pain and he elected for replacement today. His surgery was performed under general anesthesia with no immediate complications documented an estimated blood loss of 200 mL. He also received a cortisone injection into the right knee. At the time my evaluation he is not having any overt pain but he does complain of pretty significant spasms around the left knee and throughout the leg. He has been up to the bathroom and to the chair and is doing quite well in that regard. He denies paresthesias, skin color, and temperature changes of the surgical leg. He also denies postoperative fever, chills, sweats, chest pain, shortness of breath, nausea, and vomiting. 09/25/21 doing well. No new complaints uses CPAP at night. Has borderline diabetes. Pain is well controlled Review of Systems Review of Systems: All systems reviewed & are unremarkable except as noted in HPI and below (HPI) Exam Narrative: General: Well-developed male in the semi-Mendez position in bed in no distress. HEENT: Wearing glasses. PERRL, EOMI. Sclerae anicteric. Oral mucosa moist. Neck: Supple. Nontender Respiratory: Lungs are clear to auscultation bilaterally. Cardiovascular: Regular rate and rhythm with S1-S2. Gastrointestinal: Abdomen is soft, nontender, and nondistended with positive bowel sounds. Skin: Warm and dry. No rash or lesions on limited exam. Extremities: No cyanosis, clubbing, or edema. Radial and pedal pulses intact. Musculoskeletal: Left knee is surgically dressed. He is neurovascularly intact distal to the surgical site. Neurological: Alert. Cranial nerves 2-12 grossly intact. No gross focal deficits to casual conversation. Psychiatric: Pleasant and cooperative with normal mood and affect. J
== END 2021-09-25 17:16 | disposition home or self-care (01) ==
LOC: ANHSURGERY 06:02 → ANH2MED 12:52
PROVIDERS: Physician Assistant; Physician Assistant Surgical; PCP Internal Medicine; Visit Provider Orthopaedic Surgery
PROC: (CPT 27447; principal; 2021-09-24 07:30)
DX: M17.0 Bilateral primary osteoarthritis of knee (principal); M62.838 Other muscle spasm; I10 Essential (primary) hypertension; I48.91 Unspecified atrial fibrillation; G47.33 Obstructive sleep apnea (adult) (pediatric); E11.42 Type 2 diabetes mellitus with diabetic polyneuropathy; N40.0 Benign prostatic hyperplasia without lower urinary tract symptoms; Z79.84 Long term (current) use of oral hypoglycemic drugs; E66.9 Obesity, unspecified; Z68.35 Body mass index [BMI] 35.0-35.9, adult; Z99.89 Dependence on other enabling machines and devices
CPT/HCPCS: 27447; 20610; 36415; 73560; 80048; 80076; 80307; 82040; 82948; 83036; 83735; 85025; 86850; 86900; 86901; 87070; 87147; 87181; 87186; 97110; 97116; 97161; 97165; 97530; 97535; A9270; C1713; C1776; J0171; J0690; J1040; J1100; J1170; J1815; J1885; J2001; J2250; J2270; J2405; J2704; J2795; J3010; J3370; J7120

== ENCOUNTER 2021-09-27 12:49 | Outpatient (RCR) | payer MEDICARE, SELFPAY ==
--- NOTE | 2021-09-27 13:58 | PTOPEVAL ---
Thank you for referring Yossi Justin to [facility].? The patient is scheduled to be seen for therapy? ____x/week for ___ weeks. Please review, sign, date and return this plan of care CURRY. I agree with and certify that the following plan of care is medically necessary. Referring Physician Date Admitting Provider: Attending Provider: Taz Doherty MD Referring Provider: *PT Outpatient Evaluation Start: 09/27/21 13:24 Freq: Status: Active Protocol: Document 09/27/21 13:15 [facility] (Rec: 09/27/21 13:57 [facility] [id number]) Therapy Assessment Status Assessment Status Assessment Status Evaluation Outpatient Past Medical History Neurological History Hx Other Neurological Disorders Yes: NEUROPATHY BILATERAL FEET Cardiovascular History Hx Atrial Fibrillation Yes Hx Hypertension Yes Hx Other Cardiac Disorders Yes: G[employer] DR[employer] ELIAS Respiratory History Hx Sleep Apnea Yes: UTILIZES CPAP Gastrointestinal History Hx Appendectomy Yes Hx Other Gastrointestinal Disorders Yes: CONSTIPATION Genitourinary History Hx Benign Prostatic Hyperplasia Yes Hx Other Genitourinary Disorders Yes: FREQUENT URINATION, MODERATE URINARY INCONTINENCE Musculoskeletal History Hx Arthritis Yes: KNEES Hx Fractures Yes: RT HAND-NO SURGERY Hx Other Musculoskeletal Disorders Yes: AMBULATES WITH CANE Hematological History Hx Hematological Disorders No Significant History Endocrine History Hx Diabetes Yes HEENT History Hx Glaucoma Yes Hx Tonsillectomy Yes Hx Eye Surgery Yes: RT EYE HISTOLASMOSIS INJECTION EVERY 12 WEEKS Hx Other HEENT Disorders Yes: GLASSES Integumentary History Hx Other Skin Disorders Yes: HEALING 1/2 SKIN TEAR TO TOP OF RT HAND Reproductive History Hx Reproductive Disorders No Significant History Psychosocial History Hx Psychiatric Disorders No Significant History Pain History Has Past Pain Affected Your Daily Life Yes: KNEES History of Long-Term Prescription Pain Yes: HYDROCODONE STARTED DEC Medication Use (Opiates) 2020-STATES USED VERY RARELY Anesthesia History Hx Anesthesia Reactions No Significant History Evaluation Information Problem Diagnosis s/p L TKA Onset 09/24/21 Additional Evaluation Detail LEFS = 90% functionally declined Subjective Information patient reports he had knee Query Text:As Reported By Patient/ replacement on 09/24/21 due to Family bone on bone arthritis of the L knee. he reports he is having pain in the L knee,
== END 2021-11-01 14:47 | disposition home or self-care (01) ==
LOC: CHSPT 12:49
PROVIDERS: Visit Provider Orthopaedic Surgery
DX: Z96.652 Presence of left artificial knee joint (principal)
CPT/HCPCS: 97016; 97110; 97161; 97530

== ENCOUNTER 2022-04-25 09:55 | Outpatient (CLI) | payer MEDICARE, SELFPAY ==
--- NOTE | ~2022-04-25 | CT_ITS ---
EXAMINATION: CT sinus wo con DATE: 04/25/2022 10:08 INDICATION: Chronic sinusitis TECHNIQUE: Computed tomography (CT) of the paranasal sinuses was performed without contrast. Iterativ e reconstruction technique was employed. Exam dose: 268.17 mGy-cm total exam DLP. COMPARISON: None FINDINGS: There is rightward bowing of the nasal septum. There is asymmetric soft tissue swelling of the left middle and inferior nasal turbinates compared to the right counterparts. There is minimal mucoperiosteal thickening of the frontal sinuses, mild to moderate mucoperiosteal th ickening in the ethmoid sinuses. There is focal primarily inferior mucoperiosteal thickening of the r ight maxillary sinus and more prominent mucoperiosteal thickening of the left maxillary sinus particu larly in the region of the ostium and along the middle and inferior garcia. The right estimated complex is patent. There is mild soft tissue thickening of the left maxillary ostium and infundibulum but the left ostio meatal complex is patent. The mastoid air cells are normally developed and aerated bilaterally. The left sphenoid sinus is comp letely opacified. The right sphenoid sinus is clear with the exception of minimal focal inferomedial mucoperiosteal thickening. IMPRESSION: Minimal bilateral frontal, mild bilateral ethmoid, mild to moderate maxillary mucoperios teal thickening and complete opacification of left sphenoid sinus Mild mucosal periosteal thickening of the left maxillary ostium and infundibulum Rightward bowing of the nasal septum Asymmetric moderate soft tissue swelling of the left nasal turbinates Reviewed, dictated and finalized at [facility]. Reviewed, dictated and finalized at location A. IMPRESSION: Minimal bilateral frontal, mild bilateral ethmoid, mild to moderat e maxillary mucoperiosteal thickening and complete opacification of left spheno id sinus Mild mucosal periosteal thickening of the left maxillary ostium and infundibulu m Rightward bowing of the nasal septum Asymmetric moderate soft tissue swelling of the left nasal turbinates
== END 2022-04-25 09:56 | disposition home or self-care (01) ==
LOC: CHSIMG 09:56
PROVIDERS: PCP Internal Medicine; Visit Provider Internal Medicine
DX: J32.9 Chronic sinusitis, unspecified (principal)
CPT/HCPCS: 70486

== ENCOUNTER 2022-08-13 12:34 | Outpatient (CLI) | payer MEDICARE, SELFPAY ==
--- NOTE | 2022-09-11 14:16 | WPDHOLTEREM ---
Holter/Event Monitor Holter/Event Monitor Date of procedure: 08/13/22 Holter/Event Procedure: Event Monitor Indications: Abnormal heart beat Conclusion: 1. 28 days event monitor between 08/13/22-09/11/22. There are 28 available transmissions for analysis. 2. Predominant rhythm is sinus rhythm. HR range 36-130 bpm; average HR 74 bpm. HR at 36 bpm was on 09/07/22 at 04:35. 3. There are frequent premature supraventricular complexes with total burden of 8%. There are 1,402 episodes of atrial fibrillation with a burden of 27%, fastest at 120 bpm and longest lasting 2 hours and 27 minutes. 4. There are occasional premature ventricular complexes with total burden of 1%. No ventricular tachycardia. 5. The longest pause is 2.1 seconds due to a sinus pause on 09/06/22 at 03:23. Underlying first degree AV block. 6. Patient reports 1 episode of symptom other than listed which demonstrate sinus bradycardia at 59 bpm with PAC's.
== END 2022-08-13 12:35 | disposition home or self-care (01) ==
LOC: CHSCARD 12:36
PROVIDERS: PCP Internal Medicine; Visit Provider Internal Medicine
DX: I49.9 Cardiac arrhythmia, unspecified (principal)
CPT/HCPCS: 93270

== ENCOUNTER 2022-08-14 14:28 | Outpatient (CLI) | payer MEDICARE, SELFPAY ==
[2022-08-14 14:48] LABS: Basophils Absolute Auto 0.03 K/mm3 (0.00-0.10); Basophils Percent Auto 0.3 % (0.0-1.0); Eosinophils Absolute Auto 0.17 K/mm3 (0.02-0.50); Eosinophils Percent Auto 1.9 % (1.0-6.0); Hematocrit 40.5 % (37.0-46.0); Hemoglobin 13.5 g/dL (12.4-15.3); Immature Granulocyte Absolute 0.03 K/mm3 (0.00-0.00); Immature Granulocyte Percent A 0.3 % (0.0-0.0); Lymphocytes Absolute Auto 1.03 K/mm3 (1.10-4.50); Lymphocytes Percent Auto 11.3 % (18.0-42.0); Mean Corpuscular HGB Conc 33.3 g/dL (32.0-36.0); Mean Corpuscular Volume 87.1 fL (78.0-102.0); Mean Platelet Volume 8.4 fl (8.7-11.0); Monocytes Absolute Auto 0.58 K/mm3 (0.10-0.90); Monocytes Percent Auto 6.4 % (2.0-11.0); Neutrophils Absolute Auto 7.2 K/mm3 (1.7-7.2); Neutrophils Percent Auto 79.8 % (50.0-70.0); Platelet Count Result 295 K/mm3 (150-420); Red Blood Count 4.65 M/mm3 (4.70-6.10); Red Cell Distribution Width 13.6 % (11.6-14.4); White Blood Count 9.1 K/mm3 (4.8-10.8)
[2022-08-14 15:03] LABS: Partial Thromboplastin Time 29.9 SEC (23.90-30.70); Prothrombin Time 11.1 Seconds (9.50-12.10)
[2022-08-14 15:42] LABS: Alanine Aminotransferase 34 U/L (16-63); Albumin Level 4.1 g/dL (3.4-5.0); Alkaline Phosphatase 103 U/L (46-116); Anion Gap 9 mmol/L (8-16); Aspartate Amino Transferase 27 U/L (15-37); Bilirubin,Total 0.4 mg/dL (0.00-1.00); Blood Urea Nitrogen 22 mg/dL (7-18); Calcium 9.4 mg/dL (8.5-10.1); Carbon Dioxide 25 mmol/L (21-32); Chloride 97 mmol/L (98-108); Estimated Glomerular Filt Rate 52; Glucose 145 mg/dL (70-99); NT Pro B Type Natriuretic Pept 63 pg/mL (0-125); Osmolality Calculated 278 mOsm/kg (285-295); Potassium 4.2 mmol/L (3.5-5.1); Sodium 131 mmol/L (136-145); Total Protein 7.8 g/dL (6.4-8.2)
== END 2022-08-14 14:29 | disposition home or self-care (01) ==
LOC: CHSLAB 14:30
PROVIDERS: PCP Internal Medicine; Visit Provider Internal Medicine
DX: E87.1 Hypo-osmolality and hyponatremia (principal); I50.9 Heart failure, unspecified
CPT/HCPCS: 36415; 80053; 83735; 83880; 85025; 85610; 85730

== ENCOUNTER 2022-08-27 08:15 | Outpatient (CLI) | payer MEDICARE, SELFPAY ==
--- NOTE | ~2022-08-27 | XR_ITS ---
EXAMINATION: UGI AIR CONTRAST W/ ESOPHAGRAM DATE: 09/11/07 09:43:00 INDICATION: Difficulty swallowing. Patient with nausea and weight loss. TECHNIQUE: Thin barium contrast with gas effervescent crystals were administered orally. Fluoroscopi c images of the esophagus, stomach, and proximal duodenum were obtained in various projections. The h ypopharynx was also imaged. Thereafter, overhead images of the thoracic esophagus and abdomen were pe rformed. 52 images. 1.1 minutes of fluoroscopy time. FINDINGS: The esophagus is normal in caliber, without mucosal lesions or strictures. There is normal esophagea l peristalsis. There is a small sliding hiatal hernia with gastroesophageal reflux. The hypopharynx i s normal. The gastric folds are normal. The proximal duodenum is also normal in appearance. IMPRESSION: 1. Small sliding hiatal hernia with gastroesophageal reflux. Reviewed, dictated and finalized at location L. ISH MASSEUSE
== END 2022-08-27 08:16 | disposition home or self-care (01) ==
LOC: CHSIMG 08:17
PROVIDERS: PCP Internal Medicine; Visit Provider Internal Medicine
DX: R13.10 Dysphagia, unspecified (principal); K44.9 Diaphragmatic hernia without obstruction or gangrene
CPT/HCPCS: 74240

== ENCOUNTER 2022-10-05 10:02 | Outpatient (CLI) | payer MEDICARE, SELFPAY ==
--- NOTE | ~2022-10-05 | MR_ITS ---
MRI of the cervical spine Clinical History: Bilateral hand numbness Technique: Axial T2-weighted and gradient images, and sagittal T1-weighted, T2-weighted, and STIR alysia ges were acquired. Findings: No fracture or subluxation seen. Vertebral bodies maintain normal height and alignment. No suspicious bone marrow signal abnormality seen. At C2-C3, there is small central disc protrusion. No spinal canal stenosis, cord compression, or neur al foraminal narrowing. At C3-C4, there is central disc osteophyte complex, with minimal flattening the ventral cord. There i s mild bilateral neural foraminal narrowing. At C4-C5, there is a central disc protrusion, which minimally abuts the ventral cord. There is bilate ral neural foraminal narrowing, left worse than right. At C5-C6, there is mild disc osteophyte complex with facet arthropathy. There is bilateral neural for aminal narrowing. No zuleyma spinal canal stenosis or cord compression. At C6-C7, there is disc ossify complex, with minimal flattening the ventral cord. There is bilateral neural foraminal narrowing, right worse than left. No abnormal signal seen in the spinal cord. Paravertebral soft tissues are unremarkable. Impression: Mild to moderate degenerative spondylitic changes, as detailed above. No fracture or subluxation. Reviewed, dictated and finalized at [facility].
[2022-10-05 10:42] LABS: CRP < 0.5 mg/dL (0.0-0.9)
[2022-10-05 11:18] LABS: Vitamin B12 1334 pg/mL (193-986)
[2022-10-05 11:22] LABS: Erythrocyte Sedimentation Rate 16 mm/hr (0-20)
[2022-10-09 18:13] LABS: Albumin 3.8 g/dL (3.8-4.8); Alpha 1 Globulin 0.3 g/dL (0.2-0.3); Alpha 2 Globulin 0.8 g/dL (0.5-0.9); Beta 1 Globulin 0.5 g/dL (0.4-0.6); Gamma Globulin 1.1 g/dL (0.8-1.7); Protein, Total 6.8 g/dL (6.1-8.1)
[2022-10-10 19:55] LABS: Creatinine, Random Urine 102 mg/dL (20-320); Total Protein/Creatinine Ratio 78 mg/g creat (25-148)
[2022-10-11 15:16] LABS: Vitamin B6 75.6 ng/mL (2.1-21.7)
== END 2022-10-05 10:03 | disposition home or self-care (01) ==
PROVIDERS: PCP Internal Medicine
DX: G60.9 Hereditary and idiopathic neuropathy, unspecified (principal); R20.0 Anesthesia of skin; M54.2 Cervicalgia; M26.81 Anterior soft tissue impingement
CPT/HCPCS: 36415; 82570; 82607; 84155; 84156; 84165; 84166; 84207; 85652; 86038; 86140; 86334

== ENCOUNTER 2022-10-08 07:45 | Outpatient (CLI) | payer MEDICARE, SELFPAY ==
--- NOTE | 2022-10-08 07:50 | ECG_ITS ---
Measurements Intervals [place] Rate: 51 P: -44 MN: 176 QRS: -24 QRSD: 162 T: 35 QT: 447 QTc: 415 Interpretive Statements SINUS BRADYCARDIA WITH OCCASIONAL SUPRAVENTRICULAR PREMATURE COMPLEXES RIGHT BUNDLE BRANCH BLOCK ABNORMAL ECG COMPARED TO ECG 12/25/2020 15:35:04 NO SIGNIFICANT CHANGES Electronically Signed On 10-08-2022 15:47:59 CDT by Amauri Greene M.D.
== END 2022-10-08 07:46 | disposition home or self-care (01) ==
LOC: CHSCARD 07:47
PROVIDERS: PCP Internal Medicine; Visit Provider Internal Medicine Cardiovascular Disease
DX: I48.0 Paroxysmal atrial fibrillation (principal); R00.1 Bradycardia, unspecified; I45.10 Unspecified right bundle-branch block; R94.31 Abnormal electrocardiogram [ECG] [EKG]
CPT/HCPCS: 93005

== ENCOUNTER 2022-10-17 10:41 | Outpatient (CLI) | payer MEDICARE, SELFPAY ==
--- NOTE | ~2022-10-17 | MR_ITS ---
MRI of the cervical spine Clinical History: Bilateral hand numbness Technique: Axial T2-weighted and gradient images, and sagittal T1-weighted, T2-weighted, and STIR alysia ges were acquired. Findings: No fracture or subluxation seen. Vertebral bodies maintain normal height and alignment. No suspicious bone marrow signal abnormality seen. At C2-C3, there is small central disc protrusion. No spinal canal stenosis, cord compression, or neur al foraminal narrowing. At C3-C4, there is central disc osteophyte complex, with minimal flattening the ventral cord. There i s mild bilateral neural foraminal narrowing. At C4-C5, there is a central disc protrusion, which minimally abuts the ventral cord. There is bilate ral neural foraminal narrowing, left worse than right. At C5-C6, there is mild disc osteophyte complex with facet arthropathy. There is bilateral neural for aminal narrowing. No zuleyma spinal canal stenosis or cord compression. At C6-C7, there is disc ossify complex, with minimal flattening the ventral cord. There is bilateral neural foraminal narrowing, right worse than left. No abnormal signal seen in the spinal cord. Paravertebral soft tissues are unremarkable. Impression: Mild to moderate degenerative spondylitic changes, as detailed above. No fracture or subluxation. Reviewed, dictated and finalized at [facility]. Impression: Mild to moderate degenerative spondylitic changes, as detailed above. No fracture or subluxation.
== END 2022-10-17 10:42 | disposition home or self-care (01) ==
LOC: CHSIMG 10:43
PROVIDERS: PCP Internal Medicine
DX: R20.0 Anesthesia of skin (principal); M54.2 Cervicalgia; R26.81 Unsteadiness on feet
CPT/HCPCS: 72141

== ENCOUNTER 2022-11-05 08:08 | Outpatient (CLI) | payer MEDICARE, SELFPAY ==
--- NOTE | 2022-11-05 08:16 | ECG_ITS ---
Measurements Intervals [place] Rate: 49 P: -62 DC: 168 QRS: -9 QRSD: 149 T: 48 QT: 458 QTc: 414 Interpretive Statements SINUS BRADYCARDIA RIGHT BUNDLE BRANCH BLOCK BASELINE ARTIFACT- II, III ABNORMAL ECG COMPARED TO ECG 10/08/2022 08:02:30 NO SIGNIFICANT CHANGES Electronically Signed On 11-05-2022 9:52:06 CDT by Amrik Fonseca D.O.
== END 2022-11-05 08:09 | disposition home or self-care (01) ==
LOC: CHSCARD 08:11
PROVIDERS: PCP Internal Medicine; Visit Provider Internal Medicine Cardiovascular Disease
DX: I48.0 Paroxysmal atrial fibrillation (principal); R94.31 Abnormal electrocardiogram [ECG] [EKG]; I45.10 Unspecified right bundle-branch block
CPT/HCPCS: 93005

== ENCOUNTER 2023-03-14 08:08 | Outpatient (CLI) | payer MEDICARE, SELFPAY ==
--- NOTE | 2023-03-14 08:16 | ECG_ITS ---
Measurements Intervals [place] Rate: 67 P: 91 OK: 267 QRS: -2 QRSD: 165 T: 11 QT: 435 QTc: 461 Interpretive Statements SINUS RHYTHM WITH FIRST DEGREE AV BLOCK RIGHT BUNDLE BRANCH BLOCK CONSIDER INFERIOR INFARCT, AGE INDETERMINATE BASELINE ARTIFACT- I, III, AVR, AVL, AVF ABNORMAL ECG COMPARED TO ECG 11/05/2022 08:26:49 SINUS RHYTHM NOW PRESENT FIRST DEGREE AV BLOCK NOW PRESENT Electronically Signed On 03-14-2023 8:38:57 CDT by Amrik Fonseca D.O.
== END 2023-03-14 08:09 | disposition home or self-care (01) ==
LOC: CHSCARD 08:11
PROVIDERS: PCP Internal Medicine; Visit Provider Internal Medicine Cardiovascular Disease
DX: I48.0 Paroxysmal atrial fibrillation (principal); R94.31 Abnormal electrocardiogram [ECG] [EKG]; I45.10 Unspecified right bundle-branch block
CPT/HCPCS: 93005

== ENCOUNTER 2023-12-17 08:04 | Outpatient (RCR) | payer MEDICARE, SELFPAY ==
--- NOTE | 2023-12-17 09:14 | OPREHPOC ---
Outpatient Therapy Plan of Care This is a Multidisciplinary Plan of Care that may contain components documented by all disciplines (PT, OT, and ST.) PT Problem 1 PT Problem #1 Knowledge Deficit PT Goal 1 Goal 1. independent and compliant with HEP Target Visit 6 PT Problem 2 PT Problem #2 Impaired Strength PT Goal 1 Goal 1. improve bilateral DF to 5/5 2. improve bilateral hip strength to 4+/5 overall Target Visit 12 PT Problem 3 PT Problem #3 Impaired Balance PT Goal 1 Goal 1. tinetti to display moderate fall risk or less 2. tug to be completed in under 15 seconds 3. 5x sit to stand to be completed in 15 seconds or less Target Visit 12 PT Problem 4 PT Problem #4 Impaired Functional Mobil PT Goal 1 Goal 1. patient to complete 1000ft ambulation in 6 minutes with cane 2. no LOB in the last 2 weeks Target Visit 12
--- NOTE | 2023-12-17 09:15 | PTOPEVAL1 ---
Assessment and note entered by JT File, PT Evaluation Information Assessment Status Evaluation Diagnosis ataxia, neuropathy Onset 12/15/23 Subjective Information patient reports he is coming to therapy for neuropathy. he reports he has been having issues with his feet for years, but now his symptoms have crept up to his knees and legs. he reports he feels he waddles around and has less strength and endurance. he reports he is trying to get stronger and build back his endurance. he reports he is able to walk his dog short distances. he reports he is more worn out in the afternoon. he reports he does not have pins and needles in his legs, but maybe slight tingling. he reports his height is shrinking. he does not have back pain. he has a history of sciatic pain, L knee replacement, HTN, and diabetes. he reports his back has not bothered him for years. he reports he has been struggling with balance and nearly fallen several times. he reports he is cautious to walk as he is on blood thinners and is afraid of falling. he reports he has been using a cane only and no walker to stand/ ambulate. Reported Pain Level Pain Score 0: Self Report Assessment PT Clinical Summary mr. chanel is a 73 yo man who presents to skilled PT services for evaluation and treatment of neuropathy and ataxia. he presents today with LE weakness, decreased endurance, and high fall risk per the tinetti, tug, and 5x sit to stand. he complains of symptoms in the bilateral LE's that increase with activity. these symptoms are likely the result of bilateral LE neuropathy or lumbar DDD. he would benefit from continued skilled PT to address his objective/functional deficits and improve his balance, strength, endurance, and functional activity performance to improve his quality of life and daily activity performance. Plan of Care Interventions Gait Training,Neuro Re-education,Patient/Caregiver Educati,Therapeutic Activities,Therapeutic Exercise PT Services Indicated Yes Treatment Frequency and 3x weekly for 12 visits Duration These treatments will address the objective and functional deficits as defined above. The patient will be advanced safely and appropriately in order for the patient to progress towards his/her prior level of function. Additional exercises will be introduced and as well as a comprehensive home exercise program upon discharge, if nee
--- NOTE | 2024-01-14 14:39 | OPREHPOC ---
Outpatient Therapy Plan of Care This is a Multidisciplinary Plan of Care that may contain components documented by all disciplines (PT, OT, and ST.) PT Problem 1 PT Problem #1 Knowledge Deficit PT Goal 1 Goal 1. independent and compliant with HEP Target Visit 6 Progress Met PT Problem 2 PT Problem #2 Impaired Strength PT Goal 1 Goal 1. improve bilateral DF to 5/5 2. improve bilateral hip strength to 4+/5 overall Target Visit 12 Progress Not Met PT Problem 3 PT Problem #3 Impaired Balance PT Goal 1 Goal 1. tinetti to display moderate fall risk or less - not met 2. tug to be completed in under 15 seconds -met 3. 5x sit to stand to be completed in 15 seconds or less -not met Target Visit 12 Progress Partially Met PT Problem 4 PT Problem #4 Impaired Functional Mobil PT Goal 1 Goal 1. patient to complete 1000ft ambulation in 6 minutes with cane -not met 2. no LOB in the last 2 weeks -met Target Visit 12 Progress Partially Met
--- NOTE | 2024-01-14 14:39 | PTOPPROG ---
Assessment and note entered by Alka Mantilla, PT Evaluation Information Assessment Status Progress Diagnosis ataxia, neuropathy Other ICD-10 Condition Codes ( R27.0 PT) Onset 12/15/23 Subjective Information Yossi Justin reports that he continues to have balance issues. He has not had any falls though. He feels PT may be helping his strength but his balance seems unchanged. He also notes decreased endurance with household activities. Assessment PT Clinical Summary Yossi Justin has completed 10 skilled PT visits for ataxia and neuropathy. He is reporting improved strength however, he still has decreased balance and decreased endurance with household activities. He objectively demonstrates continued deficits in static and dynamic balance, impaired gait, and decreased LE strength. He will continue to benefit from skilled PT to address these limitations. Plan of Care Interventions Gait Training,Neuro Re-education,Patient/Caregiver Educati,Therapeutic Activities,Therapeutic Exercise PT Services Indicated Yes Treatment Frequency and Finish 2 visits from original POC Duration These treatments will address the objective and functional deficits as defined above. The patient will be advanced safely and appropriately in order for the patient to progress towards his/her prior level of function. Additional exercises will be introduced and as well as a comprehensive home exercise program upon discharge, if needed, ?to ensure carryover of functional gains achieved in the clinic. This treatment plan has been reviewed and agreement upon by the patient.
== END 2024-01-19 14:41 | disposition home or self-care (01) ==
LOC: CHSPT 08:04
PROVIDERS: Visit Provider Psychiatry & Neurology Neurology
DX: R27.0 Ataxia, unspecified (principal)
CPT/HCPCS: 97110; 97112; 97150; 97161; 97530

== ENCOUNTER 2024-04-08 08:03 | Outpatient (CLI) | payer MEDICARE, SELFPAY ==
--- NOTE | 2024-04-08 08:11 | ECG_ITS ---
Test Date: 2024-04-08 08:19:43 Measurements Intervals [place] Rate: 57 P: -54 MT: 266 QRS: -26 QRSD: 169 T: 34 QT: 447 QTc: 437 Interpretive Statements SINUS BRADYCARDIA WITH FIRST DEGREE AV BLOCK RIGHT BUNDLE BRANCH BLOCK [120+ ms QRS DURATION, UPRIGHT V1, 40+ ms S IN I/aVL/V4/V5/V6] PREVIOUS INFERIOR INFARCTION ABNORMAL ECG No previous ECG available for comparison Electronically Signed On 04-09-2024 12:41:54 CDT by German Rawls M.D.
== END 2024-04-08 08:04 | disposition home or self-care (01) ==
LOC: CHSCARD 08:06
PROVIDERS: PCP Internal Medicine; Visit Provider Internal Medicine Cardiovascular Disease
DX: I48.0 Paroxysmal atrial fibrillation (principal); R00.1 Bradycardia, unspecified; I44.0 Atrioventricular block, first degree; I45.10 Unspecified right bundle-branch block; I25.2 Old myocardial infarction; R94.31 Abnormal electrocardiogram [ECG] [EKG]
CPT/HCPCS: 93005

== ENCOUNTER 2024-11-18 16:00 | Outpatient (CLI) | payer MEDICARE, SELFPAY ==
--- NOTE | ~2024-11-18 | XR_ITS ---
XR finger 2nd LT min 2V 11/18/2024 16:17 Indication: Puncture wound left second finger Procedure: 3 views left second finger Comparison: No prior studies for comparison. 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 No fracture, subluxation or dislocation. No foreign bodies Impression: 1: No acute bone or joint abnormality. Reviewed, dictated and finalized at location B. Impression: 1: No acute bone or joint abnormality.
--- OUTSIDE RECORDS SUMMARY | 2024-11-18 16:04 | XMS_ITS | Data Portability ---
Author Organization [facility], [facility] Address [address] [place] [address] Care Team Providers Care Branch Maker Name Role Phone KODI GONZALEZ Primary Care Provider Assessment Encounter Date Assessment Date Assessment LastModified by Organization Details LastModified Time 12/15/2023 12/15/2023 Plan: Refer to PT in [facility] for balance training and strengthening Consider MRI Thoracic Spine and Lumbar Spine as indicated in future Follow UP 1 year. 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 At this point, he is relatively stable, although noticing an increase in weakness and gait instability. For this reason, we will proceed with physical therapy at [facility] to see if we can improve some of this for him. He does not report any back pain or red flag symptoms such as urinary or bowel incontinence or saddle anesthesias that would indicate spinal etiology. Strength is actually intact functionally on exam. At this point, I would like to see him back in 1 year. If he has any progression or new onset symptoms, certainly we can consider obtaining MRI thoracic and lumbar spine without contrast. I personally spent a total of 15 minutes on the patient on this date of service including both uffh-nd-yfph and bfe-tgbs-jj-face time excluding any separately reportable services. urszula hendrickson Not available 12/15/2023 11:30:03 Plan of Treatment Reminders Order Date Submit Date Provider Last Modified By Organization Details Last Modified Time Details Appointments None recorded. Lab None recorded. Referral physical therapist referral 2023 024 [facility], [address] [place], [address], 4 11:03:06 Procedures None recorded. Surgeries None recorded. Imaging None recorded. Medication Orders None recorded. Patient TargetsNo targets recorded. Patient InstructionsNo instructions recorded. Reason for Referral Physical Therapist Referral for Sensory ataxia Referring Physician: Camila Senior, Neurology, Encounter Date: 12/15/2023 Results Created Date Observation Date Name Description Value Unit Range Abnormal Flag Note LastModifiedBy Organization Detail LastModifiedTime 01/10/20 24 11/28/2022 imagi ng/di agnos tic resul t No observ ation record ed. [email or web address] Not Available 03:59:30 02/11/20 24 10/05/2022 imagi ng/di agnos tic resul t No observ ation record ed. Not Available 02/11/2024 11:56:10 Result Notes None recorded. Problems Name Problem SNOMED Code Status Onset Date Resolution Date Notes Provider Name and Address Organization Details Recorded Time Idiopathic peripheral neuropathy 14438319 Active 024 Camila Senior MD [address] [place] [address], [phone], [facility] 4 10:51:37 Small fiber neuropathy 513163749 Active 024 Camila Senior MD [address] [place] [address], [phone], [facility] 4 10:51:42 Sensory ataxia 618952014 Active 024 Camila Senior MD [address] [place] [address], [phone], [facility] 4 10:51:50 Problem Notes None recorded. Procedures Surgical History None recorded. Imaging Results Imaging Date Name Status LastModified by [facility] Details LastModified Time 11/28/2022 imaging/diag nostic result completed [email or web address] Information not available 01/10/2024 03:59:30 10/05/2022 imaging/diag nostic result completed Information not available 02/11/2024 11:56:10 Procedure Notes None recorded. Medical Equipment None Reported. Medications Name Sig Start Date Stop Date Status Note LastModified by Organization Details LastModified Time Synvisc 16 mg/2 mL intra-articul ar syringe INJECT 2ML INTO THE JOINT OF AFFECTED KNEE ONCE WEEKLY active Not Available Not Available No t Available hydralazine 25 mg tablet TAKE 3 TABLETS BY MOUTH 3 TIMES A DAY WITH FOOD active Not Available Not Available No t Available omeprazole 40 mg capsule,delay ed release active Not Available Not Available N ot Available ketorolac 0.5 % eye drops INSTILL 1 DROP IN RIGHT EYE TWICE DAILY active Not Available Not Available No t Available tamsulosin 0.4 mg capsule TAKE 1 CAPSULE BY MOUTH AT BEDTIME active Not Available Not Available No t Available pantoprazole 40 mg tablet,delaye d release active Not Available Not Available No t Available flecainide 100 mg tablet TAKE 1 TABLET BY MOUTH EVERY 12 HOURS active Not Available Not Available No t Available gabapentin 100 mg capsule TAKE 1 CAPSULE BY MOUTH TWICE DAILY active Not Available Not Available No t Available metoprolol succinate ER 25 mg tablet,extend ed release 24 hr TAKE 1/2 TABLET BY MOUTH DAILY active Not Available Not Available No t Available albuterol sulfate HFA 90 mcg/actuation aerosol inhaler INHALE 2 PUFFS BY MOUTH EVERY 4 TO 6 HOURS NEEDED active Not Available Not Available No t Available timolol maleate 0.5 % eye drops INSTILL 1 DROP INTO RIGHT EYE TWICE DAILY active Not Available Not Available No t Available losartan 100 mg tablet active Not Available Not Available No t Available metformin ER 500 mg tablet,extend ed release 24 hr active Not Available Not Available Not Available diclofenac 1 % topical gel APPLY 2 GRAMS TOPICALLY TO THE AFFECTED AREA FOUR TIMES DAILY active Not Available Not Available No t Available Eliquis 5 mg tablet active Not Available Not Available Not Available Mounjaro 2.5 mg/0.5 mL subcutaneous pen injector active Not Available Not Available Not Available Vitals Date Recorded Body height Body mass index (BMI) Body weight Heart rate Oxygen saturation Oxygen saturation in Arterial blood by Pulse oximetry Systolic blood pressure Diastolic blood pressure Provider Name and Address Organization Details Last Updated DateTime 4 190.5 cm 35.7 kg/m2 101392. 42 g 73 /min 96 % 96 % 117 mm[Hg] 57 mm[Hg] Chrissie Bosch [facility] 10:36:33 Social History None recorded. Functional Status None recorded. Mental Status None recorded. Family History Nothing Reported. Medical History No medical history recorded. Past Encounters Encounter ID Performer Location Encounter Start Date Encounter Closed Date Diagnosis/Indication Diagnosis SNOMED-CT Code Diagnosis ICD10 Code Diagnosis Note [id number] Camila Senior MD [facility] [address] [place] [address] 12/15/2023 10:33:29 12/20/2023 05:36:46 Small fiber neuropathy 662497624 G62.89 Sensory ataxia 077324686 R27.0 Health Concerns Section Related Observation LastModified by Organization Detai ls LastModified Time None Recorded Concern Status LastModified by Organization Details LastModified Time None Recorded Advance Directives Directive None Recorded Payers Insurance Date Sequence Insurance Name Policy Number Policy Elizabeth Covered Member ID Elizabeth Member ID Guarantor Name 12/20/[address] [facility] (MEDICARE REPLACEMENT/A DVANTAGE - PPO) [id number] Yossi Xavi Justin [id number] Yossi Justin Notes Date Note Type Note Provider Name and Address Organization Details Recorded Time 12/15/2023 text/html Yossi Justin is a 73-year-old male who returns for follow-up for sensory ataxia in relation to a sensorimotor axonal demyelinating peripheral neuropathy in addition to small fiber neuropathy which I suspect is related to type 2 diabetes. In the interim since I last saw him, he has remained stable. Although he notes decline in overall sensation of strength. He continues to use a cane for ambulation. He does notice discomfort at nighttime but does well with gabapentin nightly in addition to Tylenol. He has been noticing more muscular cramping distally within the lower extremities in correlation with this and movement of muscles at times. He at this point is relatively stable, although is interested in trying to improve overall strength and balance. He has not been to physical therapy in long duration.urszula Senior MD [address] [place] [address], [phone], [facility] 12/19/2023 10:27:52
== END 2024-11-18 16:01 | disposition home or self-care (01) ==
LOC: CHSIMG 16:02
PROVIDERS: PCP Internal Medicine; Visit Provider Nurse Practitioner Family
DX: S61.239A Puncture wound without foreign body of unspecified finger without damage to nail, initial encounter (principal)
CPT/HCPCS: 73140

== ENCOUNTER 2025-01-14 10:55 | Outpatient (CLI) | payer MEDICARE, SELFPAY ==
--- OUTSIDE RECORDS SUMMARY | 2025-01-14 10:58 | XMS_ITS | Clinical Summary ---
Author Organization [facility] Address [address] [place] [id number] Care Team Providers Care Instructor Of Spanish Name Role Phone Unavailable Primary Care Provider Unavailabl e Social History Tobacco Use Types Packs/Day Years Used Date Smoking Tobacco: Never Sex and Gender Information Value Date Recorded Sex Assigned at Not on file Legal Sex Male 6:12 PM CDT Gender Identity Not on file Sexual Orientation Not on file Last Filed Vital Signs Vital Sign Reading Time Taken Comments Blood Pressure 138/62 06/16/2015 1:35 PM ADMINISTRATIVE NURSING SUPERVISOR Pulse 40 06/16/2015 1:35 PM ADMINISTRATIVE NURSING SUPERVISOR Temperature - - Respiratory Rate 18 06/16/2015 1:35 PM ADMINISTRATIVE NURSING SUPERVISOR Oxygen Saturation - - Inhaled Oxygen Concentration - - Weight 136.5 kg (301 lb) 06/16/2015 1:35 PM ADMINISTRATIVE NURSING SUPERVISOR Height 190.5 cm (6' 3) 06/16/2015 1:35 PM ADMINISTRATIVE NURSING SUPERVISOR Body Mass Index 37.62 06/16/2015 1:35 PM ADMINISTRATIVE NURSING SUPERVISOR Plan of Treatment Health Maintenance Due Date Last Done Comments Hepatitis C 1968 DTaP, Tdap and Td Vaccines ( 1 - Tdap) 09/14/1967 Pneumococcal Vaccine: 50+ Ye ars (1 of 1 - PCV) 1998 Zoster Vaccines (1 of 2) 1998 RSV Immunization or 60+ Years (1 - 1-dose 75+ series) 09/14/2023 COVID-19 Vaccine ( - 2023-2 5 season) 2024 Meningococcal B Vaccine Aged Out No l onger eligible based on patient's age to complete this topic Meningococcal Vaccine Aged Out No celso celia eligible based on patient's age to complete this topic RSV Immunizations Under 20 Months Aged Out No longer eligible based on patient's age to complete this topic
--- OUTSIDE RECORDS SUMMARY | 2025-01-14 10:58 | XMS_ITS | Encounter Summary ---
Author Organization [facility] Address [address] [place] [address] Care Team Providers Care Lozenge Maker Helper Name Role Phone Unavailable Primary Care Provider Unavailabl e Encounter Details Date Type Department Care Team (Late st Contact Info) Description 12/05/2018 Abstract [facility] CONVERSION [address] [place] [address] , Generic Conversion, Social History Tobacco Use Types Packs/Day Years Used Date Smoking Tobacco: Never Sex and Gender Information Value Date Recorded Sex Assigned at Not on file Legal Sex Male 6:12 PM CDT Gender Identity Not on file Sexual Orientation Not on file documented as of this encounter Plan of Treatment Not on file documented as of this encounter Visit Diagnoses Not on filedocumented in this encounter
--- OUTSIDE RECORDS SUMMARY | 2025-01-14 10:58 | XMS_ITS | Data Portability ---
Author Organization [facility], [address] [facility] ([place]) Address [address] [address] Care Team Providers Care Assistant Finance Director Name Role Phone KODI GONZALEZ Primary Care Provider Assessment Encounter Date Assessment Date Assessment LastModified by Organization Details LastModified Time 12/15/2023 12/15/2023 Plan: Refer to PT in [facility] for balance training and strengthening Consider [...] we will proceed with physical therapy at [facility] to see if we can improve [...] on this date of service including both bcdf-fj-iwbs and dmb-rcts-di-face time excluding any separately reportable services. [email or web address] Not available 12/15/2023 11:30:03 Plan of Treatment Reminders Order Date Submit Date Provider Last Modified By Organization Details Last Modified Time Details Appointments None recorded. Lab None recorded. Referral physical therapist referral 2023 024 [facility], [address] [facility], [place], [address], 4 11:03:06 Procedures None recorded. Surgeries None [...] resul t No observ ation record ed. [email or web address] Not Available 02/11/2024 11:56:10 Result Notes None recorded. Problems Name Problem SNOMED Code Status Onset Date Resolution Date Notes Provider Name and Address Organization Details Recorded Time Idiopathic peripheral neuropathy 79860393 Active 024 Camila Senior MD [address] [place] [address], [phone], [facility] 4 10:51:37 Small fiber neuropathy 604955215 Active 024 Camila Senior MD [address] [place] [address], [phone], [facility] 4 10:51:42 Sensory ataxia 158135828 Active 024 Camila Senior MD [address] [place] [address], [phone], [facility] 4 10:51:50 Problem Notes None recorded. Medical Equipment None Reported. [...] in Arterial blood by Pulse oximetry Systolic And Diastolic Provider Name and Address Organization Details Last Updated DateTime 4 190.5 cm 35.7 kg/m2 517689. 42 g 73 /min 96 % 96 % 117/57 mm[Hg] [facility] 4 10:36:33 Social History None recorded. Functional Status None recorded. Mental Status None recorded. Family History Nothing Reported. Medical History No medical history recorded. Past Encounters Encounter ID Performer Location Encounter Start Date Encounter Closed Date Diagnosis/Indication Diagnosis SNOMED-CT Code Diagnosis ICD10 Code Diagnosis Note [id number] Camila Senior MD [facility] ([place]) [address] [place] [address] 12/15/2023 10:33:29 12/20/2023 05:36:46 Small fiber neuropathy 418491407 G62.89 Sensory ataxia 603506427 R27.0 Health Concerns Section Related Observation LastModified by Organization Detai ls LastModified Time None Recorded Concern Status LastModified by Organization Details LastModified Time None Recorded Advance Directives Directive None Recorded Payers Insurance Date Sequence Insurance Name Policy Number Policy Elizabeth Covered Member ID Elizabeth Member ID Guarantor Name 12/20/2023 1 [facility] (MEDICARE REPLACEMENT/A DVANTAGE - PPO) [id number] Yossi J Margoth [id number] Yossijose Coroneloen Notes Date Note Type Note Provider Name [...] not been to physical therapy in long duration. Camila Senior MD [address] [facility], [place], [address], [place] [facility] 12/19/2023 10:27:52
[2025-01-14 11:36] LABS: Hematocrit 38.2 % (37.0-46.0); Hemoglobin 12.9 g/dL (12.4-15.3); Mean Corpuscular HGB Conc 33.8 g/dL (32-36); Mean Corpuscular Hemoglobin 29.9 pg (27.0-31.0); Mean Corpuscular Volume 88.6 fL (78.0-102.0); Platelet Count Result 191 K/mm3 (150-420); Red Blood Count 4.31 M/mm3 (4.70-6.10); White Blood Count 20.4 K/mm3 (4.8-10.8)
[2025-01-14 12:30] LABS: Alanine Aminotransferase 34 U/L (6-50); Albumin Level 3.9 g/dL (3.5-5.1); Alkaline Phosphatase 84 U/L (38-126); Anion Gap 6 mmol/L (4-12); Aspartate Amino Transferase 52 U/L (17-59); Bilirubin,Total 1.9 mg/dL (0.2-1.3); Blood Urea Nitrogen 23 mg/dL (9-20); CRP > 9.0 mg/dL (<1.0); Calcium 9.1 mg/dL (8.4-10.2); Carbon Dioxide 25 mmol/L (22-30); Chloride 95 mmol/L (98-107); Creatine Kinase 373 U/L (55-170); Estimated Glomerular Filt Rate 53; Glucose 88 mg/dL (65-110); Osmolality Calculated 264 mOsm/kg (285-295); Potassium 4.7 mmol/L (3.4-5.0); Sodium 126 mmol/L (137-145); Total Protein 6.7 g/dL (6.3-8.2)
[2025-01-14 12:37] LABS: NT Pro B Type Natriuretic Pept 2170 pg/mL (19.9-100)
[2025-01-14 12:45] LABS: Free T4 Free Thyroxine 1.21 ng/dL (0.78-2.19)
[2025-01-14 12:59] LABS: Prostate Specific Antigen 17.0 ng/mL (< OR = 4.0); Thyroid Stimulating Hormone 1.290 uIU/mL (0.465-4.680)
[2025-01-14 13:52] LABS: Free T3 2.86 pg/mL (2.18-3.98)
[2025-01-19 15:09] LABS: B microti IgG <1:10 (Neg:<1:10); E. chaffeensis IgG Negative (Neg:<1:64)
== END 2025-01-14 10:56 | disposition home or self-care (01) ==
LOC: CHSLAB 10:57
PROVIDERS: PCP Internal Medicine; Visit Provider Internal Medicine
DX: R50.9 Fever, unspecified (principal); I48.91 Unspecified atrial fibrillation; R53.83 Other fatigue; J40 Bronchitis, not specified as acute or chronic; N40.0 Benign prostatic hyperplasia without lower urinary tract symptoms; R06.00 Dyspnea, unspecified
CPT/HCPCS: 36415; 80053; 82550; 83880; 84153; 84439; 84443; 84481; 85027; 85652; 86140; 86618; 86666; 86757; 87040

== ENCOUNTER 2025-01-14 14:30 | Inpatient (IN) | payer MEDICARE, SELFPAY ==
--- NOTE | ~2025-01-14 | XR_ITS ---
XR chest 1V portable Ordering provider: Jimi Cavanaugh MD History: 74 years Male with . weakness . Comparison: None. FINDINGS: MEDIASTINUM: The cardiac silhouette is likely enlarged. LUNGS: No infiltrates, effusions or pneumothorax. OTHER: No free air under the diaphragm. IMPRESSION: No acute cardiopulmonary pathology. Reviewed, dictated and finalized at location A.
--- NOTE | ~2025-01-14 | CT_ITS ---
EXAMINATION: CT brain wo con DATE: 01/14/2025 16:00 INDICATION: weakness, fall- head injury, anterior Lt. parietal region . TECHNIQUE: Computed tomography (CT) of the head was performed without intravenous contrast. The mA wa s adjusted according to patient size. Iterative reconstruction technique was employed. The dose-lengt h product was 681.00 mGy-cm. COMPARISON: None. FINDINGS: No acute intracranial hemorrhage or extra-axial fluid collection. No hydrocephalus, mass, or herniation. No acute ischemic infarct. Unremarkable dural venous sinus attenuation. No acute osseous abnormality. Small left frontal scalp contusion. Minimal left mastoid fluid, left sphenoid opacification with surrounding sclerosis, mild maxillary an d ethmoid mucosal thickening, the remaining aerated spaces are clear. Mild atrophy and chronic white matter change. Atherosclerotic intracranial calcification. IMPRESSION: No acute intracranial process. CT findings that may reflect chronic left sphenoid sinusitis in the appropriate clinical context Reviewed, dictated and finalized at location K.
--- OUTSIDE RECORDS SUMMARY | 2025-01-14 14:32 | XMS_ITS | Clinical Summary ---
Author Organization [facility] Address [address] [place] [address] Care Team Providers Care Grouter Helper Name Role Phone Unavailable Primary Care [...] Comments Blood Pressure 138/62 06/16/2015 1:35 PM RELIGIOUS HEALER Pulse 40 06/16/2015 1:35 PM RELIGIOUS HEALER Temperature - - Respiratory Rate 18 06/16/2015 1:35 PM RELIGIOUS HEALER Oxygen Saturation - - Inhaled Oxygen Concentration - - Weight 136.5 kg (301 lb) 06/16/2015 1:35 PM RELIGIOUS HEALER Height 190.5 cm (6' 3) 06/16/2015 1:35 PM RELIGIOUS HEALER Body Mass Index 37.62 06/16/2015 1:35 PM RELIGIOUS HEALER Plan of Treatment Health Maintenance Due Date [...]
--- OUTSIDE RECORDS SUMMARY | 2025-01-14 14:32 | XMS_ITS | Encounter Summary ---
Author Organization [facility] Address [address] [place] [address] Care Team Providers Care Advertising Campaign Manager Name Role Phone Unavailable Primary Care Provider Unavailabl e Encounter Details Date Type Department Care Team (Late st Contact Info) Description 12/05/2018 Abstract SFL CONVERSION [address] [place] [address] , Generic Conversion, Social History [...]
--- NOTE | 2025-01-14 14:38 | ED_ITS ---
HPI - Fall General Chief Complaint: Fall Stated Complaint: fall Time Seen by Provider: 01/14/25 14:38 Source: patient Mode of arrival: EMS Limitations: no limitations History of Present Illness HPI Narrative: Patient is a 74-year-old male who has come by ambulance for a fall and hit his head while on Eliquis/AFib a few hours ago. No residual other injuries. He was sitting on the corner of the bed and tried to get up and lost his footing as well as some off-balance and fell from ground level and hit his head. He is being treated for outpatient acute prostatitis and BPH. Primary doctor called and gave the report. He also has some abnormal labs according to the primary such as low-sodium. Labs were done today. No chest pain or shortness of breath. Decreased urination to minimal amounts over the last 3 days. he has been having generalized weakness and his left lower extremity appears a little bit more weak than other parts due to a pain in the groin. labs done today to include blood cultures. MD complaint: fall Onset (ago): day(s) ( Three days) Fall from: standing Fall witnessed: no Place fall occurred: home Loss of consciousness: none Prolonged down time: no Symptoms prior to fall: other ( off balance) Context: tripped/slipped ( with associated lost balance) Location of injury: head Severity: mild Severity scale (1-10): 1 Quality: dull Associated symptoms (after fall): weakness ( Past couple of days) and lightheaded ( off balance) Related Data Home Medications ?Medication ?Instructions ?Recorded ?Confirmed ?Last Taken ?Type fluticasone propionate 50 2 spray intranasal DAILY PRN 12/23/19 10/04/24 09/23/21 History mcg/actuation nasal Congestion spray,suspension metformin 500 mg tablet,extended 1,000 mg PO BID 12/23/19 10/04/24 09/23/21 History release 24 hr timolol 0.5 % eye drops 1 drp RIGHT EYE Q12H 06/18/21 10/04/24 09/23/21 History apixaban 5 mg tablet (Eliquis) 5 mg PO BID 08/22/22 10/04/24 Unknown History losartan 100 mg tablet 100 mg PO DAILY 08/22/22 10/04/24 Unknown History hydralazine 25 mg tablet 25 mg PO TID 12/02/22 10/04/24 Unknown History gabapentin 100 mg capsule 100 mg PO BID 04/05/24 10/04/24 Unknown History polyethylene glycol 3350 17 gram 17 g PO QAM PRN 04/05/24 10/04/24 Unknown History oral powder packet (Miralax) tamsulosin 0.4 mg capsule 0.4 mg PO DAILY 04/05/24 10/04/24 Unknown History tirzepatide 12.5 mg/0.5 mL 12.5 mg subcut WEEKLY 04/05/24 10/04/24 Unknown History subcutaneous pen injector (Mounjaro) Allergies Allergy/AdvReac Type Severity Reaction Status Date / Time No Known Allergies Allergy Verified 01/14/25 14:32 Review of Systems 2 Review of Systems: All systems reviewed & are unremarkable except as noted in HPI and below Constitutional: Constitutional: Reports no additional constitutional complaints Eyes: Eyes: Reports no additional eye complaints ENT: Reports system reviewed and no additional complaints, except as documented Cardiovascular: Cardiovascular: Reports no additional cardiovascular complaints Respiratory: Respiratory: Reports no additional respiratory complaints Gastrointestinal: Gastrointestinal: Reports no additional gastrointestinal complaints Genitourinary: Genitourinary: Reports no additional male genitourinary complaints Musculoskeletal: Musculoskeletal: Reports no additional musculoskeletal complaints Integumentary/Breasts: Skin/Breast: Reports system reviewed and no additional complaints, except as docu Neurologic: Reports system reviewed and no additional complaints, except as documented Psychiatric: Psychiatric: Reports no additional psychiatric complaints Endocrine: Endocrine: Reports no additional endocrine complaints Hematologic/Lymphatic: Hematologic/Lymphatic: Reports no additional hematologic/lymphatic complaints Allergic/Immunologic: Allergic/Immunologic: Reports no additional allergic/immunologic complaints [facility] Past Medical History Medical History Benign prostatic hyperplasia Paroxysmal atrial fibrillation Normal cardiac stress test (01/2021) Diverticulitis Type 2 diabetes mellitus Obstructive sleep apnea on CPAP Hypertension Obesity Peripheral neuropathy Arthritis Surgical History Surgical History History of arthroplasty of left knee (09/24/21) History of tonsillectomy History of appendectomy History of colonoscopy with polypectomy Family History Family History Other Diabetes mellitus Hypertension Social History Social History Social History: Surrogate decision maker: Vee Justin, spouse. CODE STATUS: Full code. Smoking status: Never smoker Second hand tobacco smoke exposure: No Alcohol intake: never Substance use: never Substance use type: does not use Do You Feel Safe in your Home?: Yes Lack of Transportation: No Lack of Food: Never True Current Housing: I Have Housing Concerned About Future Housing: No Difficulty Paying Gas/Electric Bills: No Difficulty Paying for Meds: No Currently Unemployed: No Education: Associate Degree Difficulty w/ Childcare or Family Care: No Living arrangements: with family Additional living arrangements comments: The patient lives in [place] with his . 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 Spiritual care concerns: No Exam 2 Const: General: healthy appearing Nutritional Appearance: well nourished Orientation/consciousness: patient oriented x3 Limitations: no limitations HENMT: Head: normal to inspection Ears: external ears normal F garland/Nose/Sinus: Normal external nose present Eyes: Conjunctivae: conjunctivae normal Pupils: Equal, round and reactive pupils present EOM: EOMs intact bilaterally Neck: Neck: normal visual inspection Chest: Chest palpation & inspection: normal inspection of the chest Resp: Effort & Inspection: normal respiratory effort and not labored A uscultation: clear to auscultation bilaterally and no crackles Cardio: Rate: regular rate Rhythm: regular rhythm Heart sounds: no murmurs GI: Inspection: non-distended GI Palp: Yes Soft to palpation and No Tenderness to palpation present (GI) Auscultation: normal bowel sounds : General: Yes bladder normal to palpation Back/Spine/Pelvis: Back: no CVA tenderness Skin: General skin exam: normal color Rashes: no rashes Wounds: no wounds Neuro: General: patient oriented x3, moves all extremities, no meningeal signs, no focal motor deficits ( some weakness to the left lower extremity however it is due to groin pain) and CN's II-XI intact bilaterally Cranial nerves: Yes Nystagmus not present Speech: normal speech Gait exam (Neuro): Normal gait present Other: fast exam is negative, GCS is 15, NIH score 0, patient was able to hold up the left lower extremity when pushed to get it done without a drift but pain in the groin occurred Extrem: General: normal to inspection Psych: Mental Status: mental status grossly normal Affect: normal affect Attitude: cooperative MDM - Fall MDM Narrative Medical decision making narrative: patient is a 74-year-old male with generalized weakness and a head injury using Eliquis and acute prostatitis. We will proceed with a general workup at this time to include a CT head. He had blood cultures done this morning. With bladder scanning and IV fluids the patient did retain some urine for a bit and then further urinated in his depends. We will await hospitalist decision for Fang catheter placement and not put in at this time. He is urinating but not under his control at this time. He put out a full urination in the depends. We will admit the patient for further evaluation and treatment. Lab Data Attestation: I reviewed the patient's lab results. 01/14/25 15:41 01/14/25 15:41 Labs: Lab Results 01/14/25 Range/Units 15:41 WBC 17.4 H (4.8-10.8) K/mm3 RBC 3.90 L (4.70-6.10) M/mm3 Hgb 11.7 L (12.4-15.3) g/dL Hct 34.2 L (37.0-46.0) % MCV 87.7 (78.0-102.0) fL MCH 30.0 (27.0-31.0) pg MCHC 34.2 (32-36) g/dL RDW 13.8 (11.6-14.4) % Plt Count 153 (150-420) K/mm3 MPV 8.1 L (8.7-11.0) fl Immature Gran % (Auto) 0.9 H (0.0-0.0) % Neut % (Auto) 90.5 H (50.0-70.0) % Lymph % (Auto) 2.3 L (18.0-42.0) % [place] % (Auto) 6.1 (2.0-11.0) % Eos % (Auto) 0.1 L (1.0-6.0) % Baso % (Auto) 0.1 (0.0-1.0) % Lymph # (Auto) 0.40 L (1.10-4.50) K/mm3 [place] # (Auto) 1.06 H (0.10-0.90) K/mm3 Eos # (Auto) 0.01 L (0.02-0.50) K/mm3 Baso # (Auto) 0.02 (0.00-0.10) K/mm3 Abs Immat Gran (auto) 0.15 H (0.00-0.00) K/mm3 Absolute Neuts (auto) 15.74 H (1.70-7.20) K/mm3 Absolute Nucleated RBC 0.00 (0.00-0.00) K/mm3 Nucleated RBC % 0.0 (0-0.0) % PT 15.5 H (9.50-12.1) Seconds INR 1.5 APTT 44.3 H (23.9-30.70) Sec Sodium 124 L (137-145) mmol/L Potassium 4.4 (3.4-5.0) mmol/L Chloride 98 (98-107) mmol/L Carbon Dioxide 18 L (22-30) mmol/L Anion Gap 8 (4-12) mmol/L BUN 23 H (9-20) mg/dL Creatinine 1.13 (0.7-1.3) mg/dL Estim Creat Clear Calc Not Reportable Estimated GFR > 60 (59 - ) Glucose 101 (65-110) mg/dL Calculated Osmolality 261 L (285-295) mOsm/kg Lactic Acid 0.9 (0.4-2.0) mmol/L Calcium 8.3 L (8.4-10.2) mg/dL Total Bilirubin 2.0 H (0.2-1.3) mg/dL AST 47 (17-59) U/L ALT 29 (6-50) U/L Alkaline Phosphatase 87 (38-126) U/L Troponin I 0.015 (0.000-0.034) ng/mL Total Protein 6.4 (6.3-8.2) g/dL Albumin 3.4 L (3.5-5.1) g/dL Imaging Data Attestation: I personally reviewed and interpreted this imaging study as follows: Radiologist's impression: CT scan of the head is negative for acute process chest x-ray is negative for acute process ECG Data EKG #1: Attestation: I personally reviewed and interpreted this ECG as follows: ECG completion date: 01/14/25 ECG completion time: 15:37 EKG Interpretation: normal rate, sinus rhythm, no ectopy, non-specific ST changes, normal QRS, RBBB, normal QT and left axis Discharge Plan Discharge Clinical Impression: Acute hyponatremia, Dehydration, H/O leukocytosis, Weakness, Acute prostatitis Fall Qualifiers: Encounter type: initial encounter Qualified Code(s): W19.XXXA - Unspecified fall, initial encounter Head injury Qualifiers: Encounter type: initial encounter Qualified Code(s): S09.90XA - Unspecified injury of head, initial encounter Patient Disposition: Acute Care Hospital [facility] Condition: Stable Patient Language: Egyptian Prescriptions: No Action hydralazine 25 mg tablet 25 mg PO TID timolol 0.5 % drops 1 drp RIGHT EYE Q12H losartan 100 mg tablet 100 mg PO DAILY Eliquis 5 mg tablet 5 mg PO BID polyethylene glycol 3350 [Miralax] 17 gram powder in packet 17 g PO QAM PRN Mounjaro 12.5 mg/0.5 mL pen injector 12.5 mg subcut WEEKLY tamsulosin 0.4 mg capsule 0.4 mg PO DAILY gabapentin 100 mg capsule 100 mg PO BID fluticasone propionate 50 mcg/actuation spray,suspension 2 spray INTRANASAL DAILY PRN (Reason: Congestion) metformin 500 mg tablet extended release 24 hr 1,000 mg PO BID flecainide 100 mg tablet See Rx Instructions .ROUTE .COMPLEX Qty: 180 2RF Dose Instruction: TAKE 1 TABLET BY MOUTH EVERY 12 HOURS Rx Instructions: TAKE 1 TABLET BY MOUTH EVERY 12 HOURS metoprolol succinate 25 mg tablet extended release 24 hr See Rx Instructions .ROUTE .COMPLEX Qty: 45 2RF Dose Instruction: TAKE 1/2 TABLET BY MOUTH DAILY Rx Instructions: TAKE 1/2 TABLET BY MOUTH DAILY Follow-up/Referrals: Gretchen Jeffrey MD [Primary Care Provider] - Time of Disposition: 17:10
--- OUTSIDE RECORDS SUMMARY | 2025-01-14 15:08 | XMS_ITS | Clinical Summary ---
Author Organization [facility] Address [address] [place] [address] Care Team Providers Care Massage Coordinator Name Role Phone Unavailable Primary Care Provider [...] Comments Blood Pressure 138/62 06/16/2015 1:35 PM NIB ASSEMBLER Pulse 40 06/16/2015 1:35 PM NIB ASSEMBLER Temperature - - Respiratory Rate 18 06/16/2015 1:35 PM NIB ASSEMBLER Oxygen Saturation - - Inhaled Oxygen Concentration - - Weight 136.5 kg (301 lb) 06/16/2015 1:35 PM NIB ASSEMBLER Height 190.5 cm (6' 3) 06/16/2015 1:35 PM NIB ASSEMBLER Body Mass Index 37.62 06/16/2015 1:35 PM NIB ASSEMBLER Plan of Treatment Health Maintenance Due Date [...]
--- OUTSIDE RECORDS SUMMARY | 2025-01-14 15:08 | XMS_ITS | Encounter Summary ---
Author Organization [facility] Address [address] [place] [address] Care Team Providers Care Sock Lining Stitcher Name Role Phone Unavailable Primary Care Provider Unavailabl e Encounter Details Date Type Department Care Team (Late st Contact Info) Description 12/05/2018 Abstract SFL CONVERSION [address] [place] [address] , Generic Conversion, Social History [...]
--- NOTE | 2025-01-14 15:27 | ECG_ITS ---
Test Date: 2025-01-14 15:41:04 Measurements Intervals [place] Rate: 66 P: 83 DE: 313 QRS: -11 QRSD: 196 T: 46 QT: 490 QTc: 516 Interpretive Statements SINUS RHYTHM WITH FIRST DEGREE AV BLOCK RIGHT BUNDLE BRANCH BLOCK [120+ ms QRS DURATION, UPRIGHT V1, 40+ ms S IN I/aVL/V4/V5/V6] PREVIOUS INFERIOR INFARCTION ABNORMAL ECG Compared to ECG 04/08/2024 08:19:43 NO DIFFERENCE Electronically Signed On 01-15-2025 09:00:29 CDT by German Rawls M.D.
[2025-01-14] MEDS: SODIUM CHLORIDE 0.9% IV 1,000 ML 999 ML IV CONT (15:31)
[2025-01-14 15:46] LABS: Hematocrit 34.2 % (37.0-46.0); Hemoglobin 11.7 g/dL (12.4-15.3); Immature Granulocyte Percent A 0.9 % (0.0-0.0); Lymphocytes Absolute Auto 0.40 K/mm3 (1.10-4.50); Mean Corpuscular HGB Conc 34.2 g/dL (32-36); Mean Corpuscular Hemoglobin 30.0 pg (27.0-31.0); Mean Corpuscular Volume 87.7 fL (78.0-102.0); Nucleated Red Blood Cells Absolute Auto 0.00 K/mm3 (0.00-0.00); Nucleated Red Blood Cells Perc 0.0 % (0-0.0); Platelet Count Result 153 K/mm3 (150-420); Red Blood Count 3.90 M/mm3 (4.70-6.10); White Blood Count 17.4 K/mm3 (4.8-10.8)
[2025-01-14 15:58] LABS: Alanine Aminotransferase 29 U/L (6-50); Albumin Level 3.4 g/dL (3.5-5.1); Alkaline Phosphatase 87 U/L (38-126); Anion Gap 8 mmol/L (4-12); Aspartate Amino Transferase 47 U/L (17-59); Bilirubin,Total 2.0 mg/dL (0.2-1.3); Blood Urea Nitrogen 23 mg/dL (9-20); Calcium 8.3 mg/dL (8.4-10.2); Carbon Dioxide 18 mmol/L (22-30); Chloride 98 mmol/L (98-107); Estimated Glomerular Filt Rate > 60; Glucose 101 mg/dL (65-110); Osmolality Calculated 261 mOsm/kg (285-295); Potassium 4.4 mmol/L (3.4-5.0); Sodium 124 mmol/L (137-145); Total Protein 6.4 g/dL (6.3-8.2)
[2025-01-14 16:01] LABS: INR 1.5; Partial Thromboplastin Time 44.3 Sec (23.9-30.70); Prothrombin Time 15.5 Seconds (9.50-12.1)
[2025-01-14 16:10] LABS: Troponin I 0.015 ng/mL (0.000-0.034)
[2025-01-14] MEDS: CIPROFLOXACIN 400 MG/D5W 200ML 200 ML 200 MG IVPB (17:20)
[2025-01-14 18:25] VITALS: BMI 30.2
--- NOTE | 2025-01-14 18:25 | ADMGEN ---
This patient, Yossi Justin, was admitted to 2nd Floor Room 210-1. Patient/family oriented to hospital policies and general routines including ID bracelet, bed and alarms, visiting hours, pain management, procedures, bathroom and other care routines, personal items, smoking policy, room service/diet, and visiting hours. Information on how to activate the Rapid Response Team has been discussed. Patient/Family are encouraged to report perceived risks to care and to ask questions if they do not understand what they are told or what they should do.
[2025-01-14 18:30] VITALS: BP 125/79; PULSE 63; RESP 16; TEMP 36.8; O2SAT 99
[2025-01-14] MEDS: SODIUM CHLORIDE 0.9% IV 1,000 ML 125 ML IV CONT (19:52)
[2025-01-14 20:00] VITALS: BP 138/74; PULSE 68; RESP 18; TEMP 36.8; O2SAT 98
[2025-01-14] MEDS: GABAPENTIN 100 MG CAPSULE 200 MG PO (21:43)
[2025-01-14] MEDS: PANTOPRAZOLE 40 MG TABLET PO (21:43)
[2025-01-14] MEDS: APIXABAN 2.5 MG TABLET 5 MG PO (21:44)
[2025-01-14] MEDS: TIMOLOL MALEATE 0.5% OP SOLN 5 ML BOTTLE 1 DROP RIGHT EYE (21:44)
[2025-01-14] MEDS: metFORMIN HCL XR 500 MG TAB.SR.24H 1000 MG PO (21:44)
[2025-01-14 22:39] LABS: Add Urine Microscopic? YES; Glucose Urine UA Negative (Negative); Leukocyte Esterase Ur 3+ LEU/UL (Negative); Nitrate Urine Negative (Negative); Specific Grav Ur 1.015 (1.010-1.020)
[2025-01-14 22:50] LABS: Appearance Urine Cloudy (Clear)
[2025-01-15] VITALS (8 sets, daily range): BP systolic 120–132; BP diastolic 60–76; PULSE 72–82; RESP 16–20; TEMP 37.2–37.4; O2SAT 95–98
[2025-01-15] MEDS: ALBUTEROL SULFATE (*SP) INHALER 2 PUFF INHALATION (00:12)
[2025-01-15] MEDS: ACETAMINOPHEN 325 MG TABLET 650 MG PO ×2 (00:13→18:45)
--- NOTE | 2025-01-15 00:18 | PC.NURSE ---
Patient complaining of not being able to breathe with his CPAP on. SpO2 @ 94% on room air. CPAP removed and O2 applied @ 2 lpm/nc. Patient says he still isn't breathing good. VSS. Lungs clear bilaterally. Telemetry showing sinus rhythm. No distress noted. PRN Albuteral inhaler given along with PRN Tylenol. Patient sat on edge of bed with nurse staying in the room. Blood sugar 106. No distress obvious/noted.
--- NOTE | 2025-01-15 00:50 | PC.NURSE ---
Patient sleeping. O2 continues @ 2 lpm/nc. Respirations even and unlabored. Continues to show sinus rhythm on telemetry. No distress noted. Call light in reach.
--- NOTE | 2025-01-15 02:00 | PC.NURSE ---
Patient sleeping with O2 continuing @ 2 lpm/nc. No distress noted. Call light in reach.
--- NOTE | 2025-01-15 03:02 | PC.NURSE ---
Patient continues sleeping with no distress noted. O2 continues @ 2 lpm/nc. Call light in reach.
[2025-01-15] MEDS: SODIUM CHLORIDE 0.9% IV 1,000 ML 125 ML IV CONT ×3 (03:56→21:38)
[2025-01-15] MEDS: CIPROFLOXACIN 400 MG/D5W 200ML 200 ML 200 MG IVPB (05:07)
[2025-01-15 05:46] LABS: Hematocrit 32.6 % (37.0-46.0); Hemoglobin 11.1 g/dL (12.4-15.3); Immature Granulocyte Percent A 0.8 % (0.0-0.0); Lymphocytes Absolute Auto 0.32 K/mm3 (1.10-4.50); Mean Corpuscular HGB Conc 34.0 g/dL (32-36); Mean Corpuscular Hemoglobin 30.2 pg (27.0-31.0); Mean Corpuscular Volume 88.6 fL (78.0-102.0); Nucleated Red Blood Cells Absolute Auto 0.00 K/mm3 (0.00-0.00); Nucleated Red Blood Cells Perc 0.0 % (0-0.0); Platelet Count Result 134 K/mm3 (150-420); Red Blood Count 3.68 M/mm3 (4.70-6.10); White Blood Count 11.0 K/mm3 (4.8-10.8)
[2025-01-15 06:08] LABS: Alanine Aminotransferase 24 U/L (6-50); Albumin Level 2.9 g/dL (3.5-5.1); Alkaline Phosphatase 78 U/L (38-126); Anion Gap 3 mmol/L (4-12); Aspartate Amino Transferase 42 U/L (17-59); Bilirubin,Total 1.0 mg/dL (0.2-1.3); Blood Urea Nitrogen 18 mg/dL (9-20); Calcium 8.1 mg/dL (8.4-10.2); Carbon Dioxide 21 mmol/L (22-30); Chloride 100 mmol/L (98-107); Estimated CRCL calculation 72 ml/min; Estimated Glomerular Filt Rate > 60; Glucose 114 mg/dL (65-110); Osmolality Calculated 260 mOsm/kg (285-295); Potassium 4.3 mmol/L (3.4-5.0); Sodium 124 mmol/L (137-145); Total Protein 5.6 g/dL (6.3-8.2)
[2025-01-15 09:33] LABS: Magnesium 1.8 mg/dL (1.6-2.3)
[2025-01-15 09:48] LABS: Creatine Kinase 265 U/L (55-170)
[2025-01-15] MEDS: LOSARTAN POTASSIUM 50 MG TABLET 100 MG PO (10:18)
[2025-01-15] MEDS: cefTRIAXone 1 GM in SODIUM CHLORIDE 0.9% IV 50 ML 100 ML IVPB (10:18)
[2025-01-15] MEDS: FLECAINIDE ACETATE 100 MG TABLET BY MOUTH ×2 (10:18→21:39)
[2025-01-15] MEDS: PANTOPRAZOLE 40 MG TABLET PO ×2 (10:19→21:39)
[2025-01-15] MEDS: METOPROLOL SUCCINATE EXT REL 12.5 MG TABCR BY MOUTH (10:19)
[2025-01-15] MEDS: TAMSULOSIN HCL 0.4 MG CAPSULE 0.8 MG PO (10:19)
[2025-01-15] MEDS: DOXYCYCLINE HYCLATE 100 MG TABLET PO ×2 (10:19→21:39)
[2025-01-15] MEDS: GABAPENTIN 100 MG CAPSULE 200 MG PO ×2 (10:19→17:58)
[2025-01-15] MEDS: TIMOLOL MALEATE 0.5% OP SOLN 5 ML BOTTLE 1 DROP RIGHT EYE ×2 (10:20→21:40)
--- NOTE | 2025-01-15 10:25 | PC.NURSE ---
Coude catheter inserted, initial urine return of 200mL. No further drainage noted. Incontinence noted around catheter
[2025-01-15] MEDS: LIDOCAINE 2% GEL UROJET 10 ML PKG MUCOUS MEM (14:05)
--- NOTE | 2025-01-15 14:05 | P.HP_ITS ---
H&P: HPI History of Present Illness Date/Time: 01/15/25 14:05 Chief Complaint: Fall/Weakness Narrative: Patient is a 74-year-old male who presented to the emergency department after he called the ambulance for a fall at home hitting his head. He reports he has had frequent falls the last couple days denied feeling dizzy prior to fall but unsteady on his feet and feels his legs are just giving out on due to weakness. Patient reported he is currently on Eliquis for AFib insert wanted to be brought in for evaluation due to striking his head. patient reports recent treatment for proctitis and BPH. Patient patient states he has been little more difficulty with urination and feels he is not emptying his bladder completely with some mild pain to his groin area. Patient denied any chest pain, shortness a breath nausea, vomiting, fever chills home. In the ED: initial findings in the emergency department director CT with no acute intracranial process or concern for bleed, chest x-ray showed clear lung desai, leukocytosis of 17, hyponatremia of 124, and UA suspicious for possible urinary tract infection. patient with mildly elevated CK. patient was started on IV fluids and IV Cipro and transferred to the medical unit. Hospital Course: 01/15/2025 patient was admitted to the medical unit for further evaluation and treatment of hyponatremia, urinary retention proctitis, UTI, and generalized weakness. patient was seen following day had no acute distress still reporting some intermittent difficulty with urination and feeling as though he is emptying his bladder completely patient also reported he has not had a bowel movement for 5 days any still reporting generalized weakness feels unsteady on his feet reports he does use a cane at home. I did go ahead and bladder scan patient post void still retaining over 600 requested Fang catheter to be placed. Review of Systems Review of Systems: All systems reviewed & are unremarkable except as noted in HPI and below PMFSH Past Medical History Medical History Benign prostatic hyperplasia Paroxysmal atrial fibrillation Normal cardiac stress test (01/2021) Diverticulitis Type 2 diabetes mellitus Obstructive sleep apnea on CPAP Hypertension Obesity Peripheral neuropathy Arthritis Surgical History Surgical History History of arthroplasty of left knee (09/24/21) History of tonsillectomy History of appendectomy History of colonoscopy with polypectomy Family History Family History Other Diabetes mellitus Hypertension Social History Social History Social History: Surrogate decision maker: Vee Justin, spouse. CODE STATUS: Full code. Smoking status: Never smoker Second hand tobacco smoke exposure: No Alcohol intake: never Substance use: never Substance use type: does not use Do You Feel Safe in your Home?: Yes Lack of Transportation: No Lack of Food: Never True Current Housing: I Have Housing Concerned About Future Housing: No Difficulty Paying Gas/Electric Bills: No Difficulty Paying for Meds: No Currently Unemployed: No Education: Associate Degree Difficulty w/ Childcare or Family Care: No Living arrangements: with family Additional living arrangements comments: The patient lives in [place] with his . 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 Spiritual care concerns: No Meds Home Medications and Allergies Home Medications ?Medication ?Instructions ?Recorded ?Confirmed ?Type fluticasone propionate 50 2 spray intranasal HS Congestion 12/23/19 01/14/25 History mcg/actuation nasal spray,suspension metformin 500 mg tablet,extended 1,000 mg PO BID 12/23/19 01/14/25 History release 24 hr timolol 0.5 % eye drops 1 drp RIGHT EYE Q12H 06/18/21 01/14/25 History apixaban 5 mg tablet (Eliquis) 5 mg PO BID 08/22/22 01/14/25 History losartan 100 mg tablet 100 mg PO DAILY 08/22/22 01/14/25 History hydralazine 25 mg tablet 75 mg PO TID 12/02/22 01/14/25 History gabapentin 100 mg capsule 200 mg PO BID 04/05/24 01/14/25 History polyethylene glycol 3350 17 gram 17 g PO QAM PRN constipation 04/05/24 01/14/25 History oral powder packet (Miralax) tamsulosin 0.4 mg capsule 0.8 mg PO DAILY 04/05/24 01/14/25 History tirzepatide 12.5 mg/0.5 mL 15 mg subcut WEEKLY 04/05/24 01/14/25 History subcutaneous pen injector (Yanira) flecainide 100 mg tablet See Rx Instructions .Route 11/29/24 01/14/25 Rx .COMPLEX #180 tabs metoprolol succinate 25 mg See Rx Instructions .Route 12/03/24 01/14/25 Rx tablet,extended release 24 hr .COMPLEX #45 tabs albuterol 90 mcg/actuation aerosol 90 mcg inhalation Q4H PRN SOB 01/14/25 01/14/25 History inhaler cyanocobalamin (vitamin B-12) 1,000 mcg PO DAILY 01/14/25 01/14/25 History 1,000 mcg tablet cyclobenzaprine 10 mg tablet 10 mg PO TID PRN muscle spasm 01/14/25 01/14/25 History diclofenac sodium 1 % topical gel 2 g topical QID 01/14/25 01/14/25 History ipratropium bromide 42 mcg (0.06 2 spray intranasal TID 01/14/25 01/14/25 History %) nasal spray pantoprazole 40 mg tablet,delayed 40 mg PO Q12H 01/14/25 01/14/25 History release Allergies Allergy/AdvReac Type Severity Reaction Status Date / Time No Known Allergies Allergy Verified 01/14/25 14:32 Vital Signs Vital Signs - 24 hr 01/14/25 18:30 01/14/25 20:00 01/14/25 20:00 Temperature 98.3 F 98.3 F Pulse Rate 63 68 68 Respiratory Rate 16 18 Blood Pressure 125/79 138/74 Pulse Oximetry 99 98 Oxygen Delivery Room Air Room Air Oxygen Flow Rate 01/15/25 00:00 01/15/25 00:00 01/15/25 04:00 Temperature 98.9 F Pulse Rate 72 72 78 Respiratory Rate 18 Blood Pressure 129/76 Pulse Oximetry 98 Oxygen Delivery Room Air Oxygen Flow Rate 01/15/25 04:00 01/15/25 10:18 01/15/25 10:19 Temperature 99.1 F Pulse Rate 78 76 76 Respiratory Rate 16 Blood Pressure 129/68 Pulse Oximetry 97 Oxygen Delivery Nasal Cannula Oxygen Flow Rate 2 Exam Const: General: comfortable and no acute distress HENMT: Mouth: Yes moist mucous membranes Eyes: General: appearance normal, both eyes and all related structures Sclera: sclerae normal Pupils: Equal, round and reactive pupils present Neck: Neck: supple and no JVD Resp: Effort & Inspection: normal respiratory effort Auscultation: clear to auscultation bilaterally Cardio: Rate: regular rate Rhythm: regular rhythm GI: GI Palp: Yes Soft to palpation Auscultation: normal bowel sounds : Other: distended bladder Skin: General skin exam: normal color and no rashes or lesions noted Wounds: no wounds Neuro: General: gait normal Speech: normal speech Motor exam (neuro): 5/5 motor strength present throughout Sensory Exam: normal sensation Extrem: General: normal to inspection Psych: Mental Status: mental status grossly normal Affect: normal affect H&P: Results Labs Labs: Short CBC 01/14/25 01/15/25 Range/Units 15:41 05:40 WBC 17.4 H 11.0 H (4.8-10.8) K/mm3 Hgb 11.7 L 11.1 L (12.4-15.3) g/dL Hct 34.2 L 32.6 L (37.0-46.0) % Plt Count 153 134 L (150-420) K/mm3 BMP 01/14/25 01/15/25 15:41 05:40 Sodium 124 L 124 L Potassium 4.4 4.3 Chloride 98 100 Carbon Dioxide 18 L 21 L BUN 23 H 18 Creatinine 1.13 0.98 Glucose 101 114 H Calcium 8.3 L 8.1 L Cardiac Enzymes 01/14/25 01/15/25 Range/Units 15:41 05:39 Total Creatine Kinase 265 H (55-170) U/L Troponin I 0.015 (0.000-0.034) ng/mL Liver Function 01/14/25 01/15/25 Range/Units 15:41 05:40 Total Bilirubin 2.0 H 1.0 (0.2-1.3) mg/dL AST 47 42 (17-59) U/L ALT 29 24 (6-50) U/L Alkaline Phosphatase 87 78 (38-126) U/L Albumin 3.4 L 2.9 L (3.5-5.1) g/dL Urine 01/14/25 Range/Units 22:00 Urine Color Light yellow (Yellow) Urine Appearance Cloudy A (Clear) Urine pH 6.0 (5.0-8.0) Ur Specific [place]man 1.015 (1.010-1.020) Urine Protein 1+ H (Negative) Urine Glucose (UA) Negative (Negative) Imaging CT scan - head: Radiologist's impression: EXAMINATION: CT brain wo con DATE: 01/14/2025 16:00 INDICATION: weakness, fall- head injury, anterior Lt. parietal region . TECHNIQUE: Computed tomography (CT) of the head was performed without intravenous contrast. The mA was adjusted according to patient size. Iterative reconstruction technique was employed. The dose-length product was 681.00 mGy- cm. COMPARISON: None. FINDINGS: No acute intracranial hemorrhage or extra-axial fluid collection. No hydrocephalus, mass, or herniation. No acute ischemic infarct. Unremarkable dural venous sinus attenuation. No acute osseous abnormality. Small left frontal scalp contusion. Minimal left mastoid fluid, left sphenoid opacification with surrounding sc lerosis, mild maxillary and ethmoid mucosal thickening, the remaining aerated spaces are clear. Mild atrophy and chronic white matter change. Atherosclerotic intracranial calcification. IMPRESSION: No acute intracranial process. CT findings that may reflect chronic left sphenoid sinusitis in the appropriate clinical context Assessment and Plan Assessment and plan (1) Fall: Qualifiers: Encounter type: initial encounter Qualified Code(s): W19.XXXA - Unspecified fall, initial encounter Code(s): W19.XXXA - Unspecified fall, initial encounter Status: Acute Assessment and Plan: patient reports he has had multiple falls at home the last week due to generalized weakness to his bilateral lower extremities likely secondary to infection * PT/OT pending for evaluation (2) Acute hyponatremia: Code(s): E87.1 - Hypo-osmolality and hyponatremia Status: Acute Assessment and Plan: patient sodium 124 on admission did report he has not been having his normal urinary output * normal saline IV 125ML/HR fluid challenge * if no improvement with saline anemia placed fluid restriction for possible SIADH following fall at home * neurochecks (3) Acute prostatitis: Code(s): N41.0 - Acute prostatitis Status: Acute Assessment and Plan: Patient is being treated outpatient on oral antibiotics initially receive Cipro from the emergency department * started on IV Rocephin and oral doxycycline (4) Benign prostatic hyperplasia: Code(s): N40.0 - Benign prostatic hyperplasia without lower urinary tract symptoms Status: Acute Assessment and Plan: patient with history of BPH * continued his Flomax (5) Urinary retention: Code(s): R33.9 - Retention of urine, unspecified Status: Acute Assessment and Plan: I performed a postvoid bladder scan patient was greater than 600 mL retained this is likely secondary to acute infection, constipation and BPH. * place Fang * monitor strict I&Os * continued Flomax * bowel regiment added * will attempt bladder trial today or two is still retaining patient may need to discharge with Fang catheter and follow-up with a urologist outpatient (6) UTI (urinary tract infection): Code(s): N39.0 - Urinary tract infection, site not specified Status: Acute Assessment and Plan: UA is suspicious for possible urinary tract infection * continue IV Rocephin pending cultures sensitivity (7) Hypertension: Code(s): I10 - Essential (primary) hypertension Status: Acute Assessment and Plan: * continued patient's hydralazine, losartan, and metoprolol (8) Atrial fibrillation: Code(s): I48.91 - Unspecified atrial fibrillation Status: Acute Assessment and Plan: * continue metoprolol * Holding Eliquis for at least 48 hours post head trauma (9) Type 2 diabetes mellitus: Code(s): E11.9 - Type 2 diabetes mellitus without complications Status: Acute Assessment and Plan: * Holding patient's Mounjaro and metformin * low-dose SSI * Accu-Cheks adeolacLuciana HS * diabetic diet * hypoglycemic protocol (10) MARTHA on CPAP: Code(s): G47.33 - Obstructive sleep apnea (adult) (pediatric); Z99.89 - Dependence on other enabling machines and devices Status: Acute Assessment and Plan: * resume patient's home CPAP * may bleed in 2 L supplemental oxygen at night Plan Code status: Full code per patient DVT prophylaxis: Eliquis on hold Stress ulcer prophylaxis: Protonix 40 daily PT/OT notes: PT/OT pending Disposition: patient admitted to the medical unit for further evaluation and treatment of hyponatremia, frequent falls, generalized weakness with unsteady gait, rhabdomyolysis, urinary retention secondary to proctitis, BPH and possible UTI. Will attempt to place Fang catheter and bladder trazodone a few days pending UTI culture and sensitivities will continue with current treatment plan if patient continues to retain will likely need to discharge home with Fang catheter in follow-up with Urology. I did recommend pending PT/ OT evaluations possible need for rehab CC to consult for possible discharge needs. Quality VTE Prophylaxis VTE prophylaxis: pharmacologic ordered -Patient's previous records reviewed on admission -ER notes reviewed in detail on admission -discussed all findings and current treatment plan with patient/Family/POA -Consultations reviewed for recommendations -Patient's disposition for safe discharge discussed with corrections caseworker Dictation performed by [email or web address] direct speech recognition software, therefore metaphysician variants and typographical errors may occur. Hospitalist MIPS Advance Care Plan I have confirmed that the patient's Advanced Care Plan is present, code status is documented, or surrogate decision maker is listed in patient medical record.: Yes Medication Reconciliation I have utilized all available resources to obtain, update and review the patients current medications (includes all prescriptions, OTC, herbals, cannabis, and nutritional supplements).: Yes The patient is not eligible for med reconciliation; the patient is in a emergent medical situation where delaying treatment would jeopardize the patients health.: No
[2025-01-15] MEDS: LACTULOSE 20 GM/30 ML UDC PO ×2 (14:25→18:05)
[2025-01-15] MEDS: metFORMIN HCL XR 500 MG TAB.SR.24H 1000 MG PO (21:39)
[2025-01-16] VITALS: BP 120/61; PULSE 74; RESP 16; TEMP 36.9; O2SAT 95
[2025-01-16] MEDS: SODIUM CHLORIDE 0.9% IV 1,000 ML 125 ML IV CONT (05:26)
[2025-01-16] MEDS: ACETAMINOPHEN 325 MG TABLET 650 MG PO ×2 (06:44→20:34)
[2025-01-16 08:00] VITALS: BP 124/70; PULSE 74; RESP 20; TEMP 37.2; O2SAT 96
[2025-01-16 08:04] LABS: Hematocrit 31.6 % (37.0-46.0); Hemoglobin 10.8 g/dL (12.4-15.3); Immature Platelet Fraction Pct 1.2 % (1.0-7.0); Mean Corpuscular HGB Conc 34.2 g/dL (32-36); Mean Corpuscular Hemoglobin 30.2 pg (27.0-31.0); Mean Corpuscular Volume 88.3 fL (78.0-102.0); Platelet Count Result 136 K/mm3 (150-420); Red Blood Count 3.58 M/mm3 (4.70-6.10); White Blood Count 9.8 K/mm3 (4.8-10.8)
[2025-01-16 08:12] LABS: Alanine Aminotransferase 27 U/L (6-50); Albumin Level 2.7 g/dL (3.5-5.1); Alkaline Phosphatase 87 U/L (38-126); Anion Gap 5 mmol/L (4-12); Aspartate Amino Transferase 42 U/L (17-59); Bilirubin,Total 0.9 mg/dL (0.2-1.3); Blood Urea Nitrogen 14 mg/dL (9-20); Calcium 7.8 mg/dL (8.4-10.2); Carbon Dioxide 19 mmol/L (22-30); Chloride 100 mmol/L (98-107); Estimated CRCL calculation 90 ml/min; Estimated Glomerular Filt Rate > 60; Glucose 92 mg/dL (65-110); Magnesium 1.6 mg/dL (1.6-2.3); Osmolality Calculated 258 mOsm/kg (285-295); Potassium 3.8 mmol/L (3.4-5.0); Sodium 124 mmol/L (137-145); Total Protein 5.4 g/dL (6.3-8.2)
--- NOTE | 2025-01-16 09:27 | P.PNIM_ITS ---
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 * may need to add salt tablets if no improvement * neurochecks (3) Fall: Qualifiers: Encounter type: initial encounter Qualified Code(s): W19.XXXA - Unspecified fall, initial encounter Code(s): W19.XXXA - Unspecified fall, initial encounter Status: Acute Assessment and Plan: patient reports he has had multiple falls at home the last week due to generalized weakness to his bilateral lower extremities likely secondary to infection * PT/OT pending for evaluation (4) Acute prostatitis: Code(s): N41.0 - Acute prostatitis Status: Acute Assessment and Plan: Patient is being treated outpatient on oral antibiotics initially receive Cipro from the emergency department * started on IV Rocephin and oral doxycycline (5) Benign prostatic hyperplasia: Code(s): N40.0 - Benign prostatic hyperplasia without lower urinary tract symptoms Status: Acute Assessment and Plan: patient with history of BPH * continued his Flomax (6) Urinary retention: Code(s): R33.9 - Retention of urine, unspecified Status: Acute Assessment and Plan: I performed a postvoid bladder scan patient was greater than 600 mL retained this is likely secondary to acute infection, constipation and BPH. * place Fang had removed due to discomfort patient voiding on own * monitor strict I&Os * continued Flomax * bowel regiment added (7) UTI (urinary tract infection): Code(s): N39.0 - Urinary tract infection, site not specified Status: Acute Assessment and Plan: UA is suspicious for possible urinary tract infection * continue IV Rocephin pending cultures sensitivity (8) Hypertension: Code(s): I10 - Essential (primary) hypertension Status: Acute Assessment and Plan: * continued patient's hydralazine, losartan, and metoprolol (9) Atrial fibrillation: Code(s): I48.91 - Unspecified atrial fibrillation Status: Acute Assessment and Plan: * continue metoprolol * Holding Eliquis for at least 48 hours post head trauma (10) Type 2 diabetes mellitus: Code(s): E11.9 - Type 2 diabetes mellitus without complications Status: Acute Assessment and Plan: * Holding patient's Mounjaro and metformin * low-dose SSI * Accu-Cheks a.c. HS * diabetic diet * hypoglycemic protocol (11) MARTHA on CPAP: Code(s): G47.33 - Obstructive sleep apnea (adult) (pediatric); Z99.89 - Dependence on other enabling machines and devices Status: Acute Assessment and Plan: * resume patient's home CPAP * may bleed in 2 L supplemental oxygen at night Plan Code status: Full code per patient DVT prophylaxis: Eliquis on hold Stress ulcer prophylaxis: Protonix 40 daily PT/OT notes: PT/OT pending Disposition: patient admitted to the medical unit for further evaluation and treatment of bacteremia, hyponatremia, frequent falls, generalized weakness with unsteady gait, rhabdomyolysis, urinary retention secondary to proctitis, BPH and possible UTI. blood cultures with Gram-negative bacilli and UTI culture and sensitivities pending will continue with current treatment plan. patient will continue admission pending final sensitivities and cultures will need 48 hour clearance of blood cultures. I did recommend pending PT/ OT evaluations possible need for rehab CC to consult for possible discharge needs. Time Spent With Patient Time with patient: 15 - 25 minutes Subjective Date/time seen: 01/16/25 09:27 Interval history: patient is a 74-year-old male who was admitted to the medical unit for further evaluation generalized weakness, UTI intermittent urinary retention, fall, hy ponatremia and now with bacteremia. 01/16/2025: Patient up in chair still reporting moderate weakness denies any CP, SOB, N/V but still with urinary fullness. Patient did have a BM this am and reports urination improved following. NA still 124 likely SIADH will do fluid restriction. Blood cultures with gram negative bacilli. Patient afebrile and normal WBC at this time. Review of Systems Review of Systems: All systems reviewed & are unremarkable except as noted in HPI and below Exam Const: General: comfortable and no acute distress HENMT: Mouth: Yes moist mucous membranes Eyes: General: appearance normal, both eyes and all related structures Sclera: sclerae normal Pupils: Equal, round and reactive pupils present Neck: Neck: supple and no JVD Resp: Effort & Inspection: normal respiratory effort Auscultation: clear to auscultation bilaterally Cardio: Rate: regular rate Rhythm: regular rhythm GI: Auscultation: normal bowel sounds : Other: distended bladder Skin: General skin exam: normal color and no rashes or lesions noted Wounds: no wounds Neuro: General: gait normal Cranial nerves: Yes Equal, round and reactive pupils present Speech: normal speech Motor exam (neuro): 5/5 motor strength present throughout Sensory Exam: normal sensation Extrem: General: normal to inspection Psych: Mental Status: mental status grossly normal Affect: normal affect Objective Data Vital Signs Vital Signs: Vital Signs - 24 hr 01/15/25 10:18 01/15/25 10:19 01/15/25 16:00 Temperature 99.4 F Pulse Rate 76 76 78 Respiratory Rate 20 Blood Pressure 132/73 Pulse Oximetry 95 Oxygen Delivery Room Air 01/15/25 20:00 01/15/25 21:39 01/16/25 00:00 Temperature 98.4 F Pulse Rate 74 74 74 Respiratory Rate 18 16 Blood Pressure 120/61 Pulse Oximetry 95 95 Oxygen Delivery Room Air Room Air Intake/Output Intake/Output: Intake & Output 01/13/25 01/14/25 01/15/25 01/16/25 23:59 23:59 23:59 23:59 Intake Total 1200 5530 1650 Output Total 1200 900 Balance 1200 4330 750 Meds/Results Medications: Active Medications Generic Name Dose Route Start Last Admin Trade Name Freq PRN Reason Stop Dose Admin Acetaminophen 650 mg 01/14/25 17:23 01/16/25 06:44 Acetaminophen 325 Mg Tablet PO 650 mg Q4H PRN Administration Mild Pain (1-3) or Fever Albuterol 2 puff 01/14/25 20:38 01/15/25 00:12 Albuterol Sulfate (*Sp) Inhaler INHALATION 2 puff Q4H PRN Administration Shortness Of Breath Apixaban 5 mg 01/14/25 21:00 01/14/25 21:44 Apixaban 2.5 Mg Tablet PO 5 mg Q12HR JOHN Administration Dextrose 12.5 gm 01/15/25 08:53 Dextrose 50% 25 Gm/50 Ml Syringe IV PUSH PRN PRN Hypoglycemia Protocol Doxycycline Hyclate 100 mg 01/15/25 09:00 01/15/25 21:39 Doxycycline Hyclate 100 Mg Tablet PO 100 mg Q12HR JOHN Administration Flecainide Acetate 100 mg 01/14/25 21:00 01/15/25 21:39 Flecainide Acetate 100 Mg Tablet BY MOUTH 100 mg Q12HR JOHN Administration Furosemide 10 mg 01/16/25 17:00 Furosemide 10 Mg Tablet PO BID JOHN Gabapentin 200 mg 01/14/25 20:40 01/15/25 17:58 Gabapentin 100 Mg Capsule PO 200 mg BID JOHN Administration Glucagon 1 mg 01/15/25 08:53 Glucagon For Inj 1 Mg Vial IM PRN PRN Hypoglycemia Protocol Glucose 15 gm 01/15/25 08:53 Glucose Oral Gel 15 Gm Of Glucse In 37.5 Gm Tube PO PRN PRN Hypoglycemia Protocol Hydralazine HCl 75 mg 01/14/25 22:00 01/16/25 05:27 Hydralazine Hcl 25 Mg Tablet PO 75 mg Q8HR JOHN Administration Dextrose 1,000 mls @ 100 mls/hr 01/15/25 08:53 Dextrose 5% 1,000 Ml IVPB PRN PRN Hypoglycemia Protocol Ceftriaxone Sodium 1 gm/ 50 mls @ 100 mls/hr 01/15/25 09:00 01/15/25 10:48 Sodium Chloride IVPB Infused Q24H JOHN Infusion Insulin Human Lispro 2 - 5 units 01/15/25 09:15 01/16/25 08:00 Insulin Human Lispro (*Bkc) 1,000 Units/10 Ml Vial SUB-Q Not Given TIDWM JOHN Protocol Losartan Potassium 100 mg 01/15/25 09:00 01/15/25 10:18 Losartan Potassium 50 Mg Tablet PO 100 mg DAILY JOHN Administration Metformin HCl 1,000 mg 01/14/25 21:20 01/15/25 21:39 Metformin Hcl Xr 500 Mg Tab.Sr.24h PO 1,000 mg HS JOHN Administration Metoprolol Succinate 12.5 mg 01/15/25 09:00 01/15/25 10:19 Metoprolol Succinate Ext Rel 12.5 Mg Tabcr BY MOUTH 12.5 mg DAILY JOHN Administration Ondansetron HCl 4 mg 01/14/25 17:23 Ondansetron Inj 4 Mg/2 Ml Vial IV PUSH Q6H PRN Nausea And Vomiting Pantoprazole Sodium 40 mg 01/14/25 21:00 01/15/25 21:39 Pantoprazole 40 Mg Tablet PO 40 mg Q12H JOHN Administration Senna/Docusate Sodium 1 tab 01/15/25 21:00 01/15/25 21:40 Senna/Docusate Sodium Tablet PO Not Given HS JOHN Tamsulosin HCl 0.8 mg 01/15/25 09:00 01/15/25 10:19 Tamsulosin Hcl 0.4 Mg Capsule PO 0.8 mg DAILY JOHN Administration Timolol Maleate 1 drop 01/14/25 21:00 01/15/25 21:40 Timolol Maleate 0.5% Op Soln 5 Ml Bottle RIGHT EYE 1 drop Q12H JOHN Administration Radiology Results: ITS Impressions Chest X-Ray 01/14/25 16:04 IMPRESSION: No acute cardiopulmonary pathology. Head CT 01/14/25 16:04 IMPRESSION: No acute intracranial process. CT findings that may reflect chronic left sphenoid sinusitis in the appropriate clinical context Labs Labs: Laboratory Results - last 24 hr 01/15/25 01/15/25 01/15/25 05:39 11:55 17:18 WBC RBC Hgb Hct MCV MCH MCHC RDW Plt Count MPV % Immature Plt Fraction Sodium Potassium Chloride Carbon Dioxide Anion Gap BUN Creatinine Estim Creat Clear Calc Estimated GFR Glucose POC Capillary Glucose 119 H 111 H Calculated Osmolality Calcium Magnesium 1.8 Total Bilirubin AST ALT Alkaline Phosphatase Total Creatine Kinase 265 H Total Protein Albumin 01/15/25 01/16/25 21:37 07:47 WBC 9.8 RBC 3.58 L Hgb 10.8 L Hct 31.6 L MCV 88.3 MCH 30.2 MCHC 34.2 RDW 13.9 Plt Count 136 L MPV 9.1 % Immature Plt Fraction 1.2 Sodium 124 L Potassium 3.8 Chloride 100 Carbon Dioxide 19 L Anion Gap 5 BUN 14 Creatinine 0.77 Estim Creat Clear Calc 90 Estimated GFR > 60 Glucose 92 POC Capillary Glucose 109 H Calculated Osmolality 258 L Calcium 7.8 L Magnesium 1.6 Total Bilirubin 0.9 AST 42 ALT 27 Alkaline Phosphatase 87 Total Creatine Kinase Total Protein 5.4 L Albumin 2.7 L Quality VTE Prophylaxis VTE prophylaxis: pharmacologic ordered -Patient's previous records reviewed on admission -ER notes reviewed in detail on admission -discussed all findings and current treatment plan with patient/Family/POA -Consultations reviewed for recommendations -Patient's disposition for safe discharge discussed with machine adjuster leader case trim Dictation performed by [employer] direct speech recognition software, therefore automatic bow maker machine tender variants and typographical errors may occur. Hospitalist MIPS Advance Care Plan I have confirmed that the patient's Advanced Care Plan is present, code status is documented, or surrogate decision maker is listed in patient medical record.: Yes Medication Reconciliation I have utilized all available resources to obtain, update and review the patients current medications (includes all prescriptions, OTC, herbals, cannabis, and nutritional supplements).: Yes The patient is not eligible for med reconciliation; the patient is in a emergent medical situation where delaying treatment would jeopardize the patients health.: No
[2025-01-16 09:59] VITALS: PULSE 74
[2025-01-16] MEDS: DOXYCYCLINE HYCLATE 100 MG TABLET PO ×2 (09:59→20:34)
[2025-01-16] MEDS: TIMOLOL MALEATE 0.5% OP SOLN 5 ML BOTTLE 1 DROP RIGHT EYE ×2 (09:59→20:35)
[2025-01-16] MEDS: GABAPENTIN 100 MG CAPSULE 200 MG PO ×2 (09:59→17:48)
[2025-01-16] MEDS: LOSARTAN POTASSIUM 50 MG TABLET 100 MG PO (09:59)
[2025-01-16] MEDS: cefTRIAXone 1 GM in SODIUM CHLORIDE 0.9% IV 50 ML 100 ML IVPB (09:59)
[2025-01-16] MEDS: TAMSULOSIN HCL 0.4 MG CAPSULE 0.8 MG PO (09:59)
[2025-01-16] MEDS: PANTOPRAZOLE 40 MG TABLET PO ×2 (09:59→20:34)
[2025-01-16] MEDS: METOPROLOL SUCCINATE EXT REL 12.5 MG TABCR BY MOUTH (09:59)
[2025-01-16] MEDS: FLECAINIDE ACETATE 100 MG TABLET BY MOUTH ×2 (09:59→20:34)
[2025-01-16 16:00] VITALS: BP 121/71; PULSE 66; RESP 20; TEMP 37.1; O2SAT 96
[2025-01-16] MEDS: FUROSEMIDE 10 MG TABLET PO (17:48)
[2025-01-16 20:00] VITALS: PULSE 67; RESP 16; O2SAT 96
[2025-01-16 20:34] VITALS: PULSE 67
[2025-01-16] MEDS: metFORMIN HCL XR 500 MG TAB.SR.24H 1000 MG PO (20:34)
[2025-01-16] MEDS: SENNA/DOCUSATE SODIUM TABLET 1 TAB PO (20:34)
[2025-01-17] VITALS: BP 142/88; PULSE 67; RESP 16; TEMP 36.6; O2SAT 96
[2025-01-17 07:59] LABS: Hematocrit 33.7 % (37.0-46.0); Hemoglobin 11.3 g/dL (12.4-15.3); Mean Corpuscular HGB Conc 33.5 g/dL (32-36); Mean Corpuscular Hemoglobin 29.9 pg (27.0-31.0); Mean Corpuscular Volume 89.2 fL (78.0-102.0); Platelet Count Result 148 K/mm3 (150-420); Red Blood Count 3.78 M/mm3 (4.70-6.10); White Blood Count 7.1 K/mm3 (4.8-10.8)
[2025-01-17 08:00] VITALS: BP 141/73; PULSE 64; RESP 20; TEMP 36.5; O2SAT 96
[2025-01-17 08:20] LABS: Alanine Aminotransferase 103 U/L (6-50); Albumin Level 3.1 g/dL (3.5-5.1); Alkaline Phosphatase 161 U/L (38-126); Anion Gap 3 mmol/L (4-12); Aspartate Amino Transferase 156 U/L (17-59); Bilirubin,Total 0.9 mg/dL (0.2-1.3); Blood Urea Nitrogen 11 mg/dL (9-20); Calcium 8.3 mg/dL (8.4-10.2); Carbon Dioxide 26 mmol/L (22-30); Chloride 95 mmol/L (98-107); Estimated CRCL calculation 81 ml/min; Estimated Glomerular Filt Rate > 60; Glucose 93 mg/dL (65-110); Magnesium 1.6 mg/dL (1.6-2.3); Osmolality Calculated 257 mOsm/kg (285-295); Potassium 3.8 mmol/L (3.4-5.0); Sodium 124 mmol/L (137-145); Total Protein 6.1 g/dL (6.3-8.2)
[2025-01-17] MEDS: cefTRIAXone 1 GM in SODIUM CHLORIDE 0.9% IV 50 ML 100 ML IVPB ×2 (09:35→10:25)
[2025-01-17 09:36] VITALS: PULSE 64
[2025-01-17] MEDS: GABAPENTIN 100 MG CAPSULE 200 MG PO ×2 (09:36→17:56)
[2025-01-17] MEDS: PANTOPRAZOLE 40 MG TABLET PO ×2 (09:36→20:04)
[2025-01-17] MEDS: METOPROLOL SUCCINATE EXT REL 12.5 MG TABCR BY MOUTH (09:36)
[2025-01-17] MEDS: FLECAINIDE ACETATE 100 MG TABLET BY MOUTH ×2 (09:36→20:03)
[2025-01-17] MEDS: DOXYCYCLINE HYCLATE 100 MG TABLET PO (09:36)
[2025-01-17] MEDS: TAMSULOSIN HCL 0.4 MG CAPSULE 0.8 MG PO (09:36)
[2025-01-17] MEDS: LOSARTAN POTASSIUM 50 MG TABLET 100 MG PO (09:36)
[2025-01-17] MEDS: FUROSEMIDE 10 MG TABLET PO ×2 (09:36→17:56)
[2025-01-17] MEDS: SODIUM CHLORIDE 1 GM TABLET PO ×2 (09:36→17:56)
[2025-01-17] MEDS: TIMOLOL MALEATE 0.5% OP SOLN 5 ML BOTTLE 1 DROP RIGHT EYE ×2 (09:37→20:03)
--- NOTE | 2025-01-17 12:43 | P.PNIM_ITS ---
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 * added salt tablets still at 124 01/17 * neurochecks (3) Fall: Qualifiers: Encounter type: initial encounter Qualified Code(s): W19.XXXA - Unspecified fall, initial encounter Code(s): W19.XXXA - Unspecified fall, initial encounter Status: Acute Assessment and Plan: patient reports he has had multiple falls at home the last week due to generali zed weakness to his bilateral lower extremities likely secondary to infection * PT/OT pending for evaluation (4) Acute prostatitis: Code(s): N41.0 - Acute prostatitis Status: Acute Assessment and Plan: Patient is being treated outpatient on oral antibiotics initially receive Cipro from the emergency department * continue IV Rocephin for coverage monotherapy to cover both bacteremia and prostatitis * D/C doxycycline Rocephin will cover for prostatitis I had mistakenly started doxy for proctitis but patient has prostatitis (5) Benign prostatic hyperplasia: Code(s): N40.0 - Benign prostatic hyperplasia without lower urinary tract symptoms Status: Acute Assessment and Plan: patient with history of BPH * continued his Flomax (6) Urinary retention: Code(s): R33.9 - Retention of urine, unspecified Status: Acute Assessment and Plan: I performed a postvoid bladder scan patient was greater than 600 mL retained this is likely secondary to acute infection, constipation and BPH. * place Fang had removed due to discomfort patient voiding on own * monitor strict I&Os * continued Flomax * bowel regiment added (7) UTI (urinary tract infection): Code(s): N39.0 - Urinary tract infection, site not specified Status: Acute Assessment and Plan: UA is suspicious for possible urinary tract infection * continue IV Rocephin pending cultures sensitivity UA did not grow any bacteria but patient was on oral ABX prior to admission (8) Hypertension: Code(s): I10 - Essential (primary) hypertension Status: Acute Assessment and Plan: * continued patient's hydralazine, losartan, and metoprolol (9) Atrial fibrillation: Code(s): I48.91 - Unspecified atrial fibrillation Status: Acute Assessment and Plan: * continue metoprolol * Holding Eliquis for at least 48 hours post head trauma (10) Type 2 diabetes mellitus: Code(s): E11.9 - Type 2 diabetes mellitus without complications Status: Acute Assessment and Plan: * Holding patient's Mounjaro and metformin * low-dose SSI * Accu-Cheks a.c. HS * Resume Mounjaro Due Friday's * diabetic diet * hypoglycemic protocol (11) MARTHA on CPAP: Code(s): G47.33 - Obstructive sleep apnea (adult) (pediatric); Z99.89 - Dependence on other enabling machines and devices Status: Acute Assessment and Plan: * resume patient's home CPAP * may bleed in 2 L supplemental oxygen at night (12) Elevated liver enzymes: Code(s): R74.8 - Abnormal levels of other serum enzymes Status: Acute Assessment and Plan: Elevation on enzymes 01/17, No ABD pain or GI complaints could secondary to doxy that was started on admission. * D/C doxycycline Rocephin will cover for prostatitis I had mistakenly started doxy for proctitis but patient has prostatitis * Trend enzymes if they worsen will get a US Plan Code status: Full code per patient DVT prophylaxis: Eliquis on hold Stress ulcer prophylaxis: Protonix 40 daily PT/OT notes: PT/OT pending Disposition: patient admitted to the medical unit for further evaluation and treatment of bacteremia, hyponatremia, frequent falls, generalized weakness with unsteady gait, rhabdomyolysis, urinary retention secondary to proctitis, BPH and possible UTI. blood cultures with Gram-negative bacilli and UTI culture and sensitivities pending will continue with current treatment plan. patient will continue admission pending final sensitivities and cultures will need 48 hour clearance of blood cultures. I did recommend pending PT/ OT evaluations possible need for rehab CC to consult for possible discharge needs. Time Spent With Patient Time with patient: 15 - 25 minutes Subjective Date/time seen: 01/17/25 12:43 Interval history: patient is a 74-year-old male who was admitted to the medical unit for further evaluation generalized weakness, UTI intermittent urinary retention, fall, hyponatremia and now with bacteremia. 01/17/2025: Patient reported weakness is slowly improving, denied any CP, SOB, N/V or abd pain and voiding on own without difficulty. Review of Systems Review of Systems: All systems reviewed & are unremarkable except as noted in HPI and below Exam Const: General: comfortable and no acute distress HENMT: Mouth: Yes moist mucous membranes Eyes: General: appearance normal, both eyes and all related structures Sclera: sclerae normal Pupils: Equal, round and reactive pupils present Neck: Neck: supple and no JVD Resp: Effort & Inspection: normal respiratory effort Auscultation: clear to auscultation bilaterally Cardio: Rate: regular rate Rhythm: regular rhythm GI: Auscultation: normal bowel sounds : Other: distended bladder Skin: General skin exam: normal color and no rashes or lesions noted Wounds: no wounds Neuro: General: gait normal Cranial nerves: Yes Equal, round and reactive pupils present Speech: normal speech Motor exam (neuro): 5/5 motor strength present throughout Sensory Exam: normal sensation Extrem: General: normal to inspection Psych: Mental Status: mental status grossly normal Affect: normal affect Objective Data Vital Signs Vital Signs: Vital Signs - 24 hr 01/16/25 16:00 01/16/25 20:00 01/16/25 20:34 Temperature 98.7 F Pulse Rate 66 67 67 Respiratory Rate 20 16 Blood Pressure 121/71 Pulse Oximetry 96 96 Oxygen Delivery Room Air Room Air 01/17/25 00:00 01/17/25 08:00 01/17/25 09:36 Temperature 97.8 F 97.7 F Pulse Rate 67 64 64 Respiratory Rate 16 20 Blood Pressure 142/88 H 141/73 H Pulse Oximetry 96 96 Oxygen Delivery Room Air Room Air 01/17/25 09:36 Temperature Pulse Rate 64 Respiratory Rate Blood Pressure Pulse Oximetry Oxygen Delivery Intake/Output Intake/Output: Intake & Output 01/14/25 01/15/25 01/16/25 01/17/25 23:59 23:59 23:59 23:59 Intake Total 1200 5530 3900 340 Output Total 1200 1700 600 Balance 1200 4330 2200 -260 Meds/Results Medications: Active Medications Generic Name Dose Route Start Last Admin Trade Name Freq PRN Reason Stop Dose Admin Acetaminophen 650 mg 01/14/25 17:23 01/16/25 20:34 Acetaminophen 325 Mg Tablet PO 650 mg Q4H PRN Administration Mild Pain (1-3) or Fever Albuterol 2 puff 01/14/25 20:38 01/15/25 00:12 Albuterol Sulfate (*Sp) Inhaler INHALATION 2 puff Q4H PRN Administration Shortness Of Breath Apixaban 5 mg 01/14/25 21:00 01/14/25 21:44 Apixaban 2.5 Mg Tablet PO 5 mg Q12HR JOHN Administration Dextrose 12.5 gm 01/15/25 08:53 Dextrose 50% 25 Gm/50 Ml Syringe IV PUSH PRN PRN Hypoglycemia Protocol Flecainide Acetate 100 mg 01/14/25 21:00 01/17/25 09:36 Flecainide Acetate 100 Mg Tablet BY MOUTH 100 mg Q12HR JOHN Administration Furosemide 10 mg 01/16/25 17:00 01/17/25 09:36 Furosemide 10 Mg Tablet PO 10 mg BID JOHN Administration Gabapentin 200 mg 01/14/25 20:40 01/17/25 09:36 Gabapentin 100 Mg Capsule PO 200 mg BID JOHN Administration Glucagon 1 mg 01/15/25 08:53 Glucagon For Inj 1 Mg Vial IM PRN PRN Hypoglycemia Protocol Glucose 15 gm 01/15/25 08:53 Glucose Oral Gel 15 Gm Of Glucse In 37.5 Gm Tube PO PRN PRN Hypoglycemia Protocol Hydralazine HCl 75 mg 01/14/25 22:00 01/17/25 06:26 Hydralazine Hcl 25 Mg Tablet PO 75 mg Q8HR JOHN Administration Dextrose 1,000 mls @ 100 mls/hr 01/15/25 08:53 Dextrose 5% 1,000 Ml IVPB PRN PRN Hypoglycemia Protocol Ceftriaxone Sodium 2 gm/ 100 mls @ 200 mls/hr 01/18/25 09:00 Sodium Chloride IVPB DAILY JOHN Insulin Human Lispro 2 - 5 units 01/15/25 09:15 01/17/25 07:32 Insulin Human Lispro (*Bkc) 1,000 Units/10 Ml Vial SUB-Q Not Given TIDWM JOHN Protocol Losartan Potassium 100 mg 01/15/25 09:00 01/17/25 09:36 Losartan Potassium 50 Mg Tablet PO 100 mg DAILY JOHN Administration Metoprolol Succinate 12.5 mg 01/15/25 09:00 01/17/25 09:36 Metoprolol Succinate Ext Rel 12.5 Mg Tabcr BY MOUTH 12.5 mg DAILY JOHN Administration Ondansetron HCl 4 mg 01/14/25 17:23 Ondansetron Inj 4 Mg/2 Ml Vial IV PUSH Q6H PRN Nausea And Vomiting Pantoprazole Sodium 40 mg 01/14/25 21:00 01/17/25 09:36 Pantoprazole 40 Mg Tablet PO 40 mg Q12H JOHN Administration Senna/Docusate Sodium 1 tab 01/15/25 21:00 01/16/25 20:34 Senna/Docusate Sodium Tablet PO 1 tab HS JOHN Administration Sodium Chloride 1 gm 01/17/25 09:00 01/17/25 09:36 Sodium Chloride 1 Gm Tablet PO 1 gm BID JOHN Administration Tamsulosin HCl 0.8 mg 01/15/25 09:00 01/17/25 09:36 Tamsulosin Hcl 0.4 Mg Capsule PO 0.8 mg DAILY JOHN Administration Timolol Maleate 1 drop 01/14/25 21:00 01/17/25 09:37 Timolol Maleate 0.5% Op Soln 5 Ml Bottle RIGHT EYE 1 drop Q12H JOHN Administration Radiology Results: ITS Impressions Chest X-Ray 01/14/25 16:04 IMPRESSION: No acute cardiopulmonary pathology. Head CT 01/14/25 16:04 IMPRESSION: No acute intracranial process. CT findings that may reflect chronic left sphenoid sinusitis in the appropriate clinical context Labs Labs: Laboratory Results - last 24 hr 01/16/25 01/16/25 01/17/25 17:02 20:33 07:39 WBC 7.1 RBC 3.78 L Hgb 11.3 L Hct 33.7 L MCV 89.2 MCH 29.9 MCHC 33.5 RDW 14.1 Plt Count 148 L MPV 8.8 Sodium 124 L Potassium 3.8 Chloride 95 L Carbon Dioxide 26 Anion Gap 3 L BUN 11 Creatinine 0.86 Estim Creat Clear Calc 81 Estimated GFR > 60 Glucose 93 POC Capillary Glucose 97 125 H Calculated Osmolality 257 L Calcium 8.3 L Magnesium 1.6 Total Bilirubin 0.9 AST 156 H ALT 103 H Alkaline Phosphatase 161 H Total Protein 6.1 L Albumin 3.1 L 01/17/25 11:31 WBC RBC Hgb Hct MCV MCH MCHC RDW Plt Count MPV Sodium Potassium Chloride Carbon Dioxide Anion Gap BUN Creatinine Estim Creat Clear Calc Estimated GFR Glucose POC Capillary Glucose 119 H Calculated Osmolality Calcium Magnesium Total Bilirubin AST ALT Alkaline Phosphatase Total Protein Albumin Quality VTE Prophylaxis VTE prophylaxis: pharmacologic ordered -Patient's previous records reviewed on admission -ER notes reviewed in detail on admission -discussed all findings and current treatment plan with patient/Family/POA -Consultations reviewed for recommendations -Patient's disposition for safe discharge discussed with community case manager Dictation performed by [employer] direct speech recognition software, therefore sustainable systems analyst variants and typographical errors may occur. Hospitalist MIPS Advance Care Plan I have confirmed that the patient's Advanced Care Plan is present, code status is documented, or surrogate decision maker is listed in patient medical record.: Yes Medication Reconciliation I have utilized all available resources to obtain, update and review the patients current medications (includes all prescriptions, OTC, herbals, cannabis, and nutritional supplements).: Yes The patient is not eligible for med reconciliation; the patient is in a emergent medical situation where delaying treatment would jeopardize the patients health.: No
[2025-01-17 16:00] VITALS: BP 126/65; PULSE 60; RESP 18; TEMP 36.7; O2SAT 97
[2025-01-17] MEDS: ACETAMINOPHEN 325 MG TABLET 650 MG PO (18:45)
[2025-01-17 20:00] VITALS: PULSE 60; RESP 18; O2SAT 97
[2025-01-17 20:03] VITALS: PULSE 60
[2025-01-17] MEDS: TIRZEPATIDE 15 MG/0.5 ML SUB-Q (21:00)
[2025-01-18] VITALS: BP 131/69; PULSE 59; RESP 17; TEMP 37; O2SAT 96
[2025-01-18 08:00] VITALS: BP 138/70; PULSE 66; RESP 18; TEMP 36.7; O2SAT 97
[2025-01-18 08:02] LABS: Hematocrit 32.8 % (37.0-46.0); Hemoglobin 11.4 g/dL (12.4-15.3); Mean Corpuscular HGB Conc 34.8 g/dL (32-36); Mean Corpuscular Hemoglobin 30.3 pg (27.0-31.0); Mean Corpuscular Volume 87.2 fL (78.0-102.0); Platelet Count Result 167 K/mm3 (150-420); Red Blood Count 3.76 M/mm3 (4.70-6.10); White Blood Count 7.8 K/mm3 (4.8-10.8)
[2025-01-18 08:13] LABS: Alanine Aminotransferase 85 U/L (6-50); Albumin Level 3.0 g/dL (3.5-5.1); Alkaline Phosphatase 155 U/L (38-126); Anion Gap 3 mmol/L (4-12); Aspartate Amino Transferase 77 U/L (17-59); Bilirubin,Total 0.6 mg/dL (0.2-1.3); Blood Urea Nitrogen 12 mg/dL (9-20); Calcium 8.4 mg/dL (8.4-10.2); Carbon Dioxide 29 mmol/L (22-30); Chloride 97 mmol/L (98-107); Estimated CRCL calculation 85 ml/min; Estimated Glomerular Filt Rate > 60; Glucose 95 mg/dL (65-110); Magnesium 1.6 mg/dL (1.6-2.3); Osmolality Calculated 267 mOsm/kg (285-295); Potassium 3.8 mmol/L (3.4-5.0); Sodium 129 mmol/L (137-145); Total Protein 5.8 g/dL (6.3-8.2)
--- NOTE | 2025-01-18 08:24 | P.PNIM_ITS ---
Progress Note: A&P Assessment and Plan (1) Bacteremia: Code(s): R78.81 - Bacteremia Status: Acute Assessment and Plan: patient's blood cultures with Klebsiella pneumoniae pansensitive other than ampicillin * IV Rocephin 2g transitioned to oral Augmentin t.i.d. 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 * added salt tablets still at 124 01/17 * neurochecks (3) Fall: Qualifiers: Encounter type: initial encounter Qualified Code(s): W19.XXXA - Unspecified fall, initial encounter Code(s): W19.XXXA - Unspecified fall, initial encounter Status: Acute Assessment and Plan: patient reports he has had multiple falls at home the last week due to generalized weakness to his bilateral lower extremities likely secondary to infection * PT/OT pending for evaluation (4) Acute prostatitis: Code(s): N41.0 - Acute prostatitis Status: Acute Assessment and Plan: Patient is being treated outpatient on oral antibiotics initially receive Cipro from the emergency department * continue IV Rocephin for coverage monotherapy to cover both bacteremia and prostatitis * D/C doxycycline Rocephin will cover for prostatitis I had mistakenly started doxy for proctitis but patient has prostatitis (5) Benign prostatic hyperplasia: Code(s): N40.0 - Benign prostatic hyperplasia without lower urinary tract symptoms Status: Acute Assessment and Plan: patient with history of BPH * continued his Flomax (6) Urinary retention: Code(s): R33.9 - Retention of urine, unspecified Status: Acute Assessment and Plan: I performed a postvoid bladder scan patient was greater than 600 mL retained this is likely secondary to acute infection, constipation and BPH. * place Fang had removed due to discomfort patient voiding on own * monitor strict I&Os * continued Flomax * bowel regiment added (7) UTI (urinary tract infection): Code(s): N39.0 - Urinary tract infection, site not specified Status: Acute Assessment and Plan: UA is suspicious for possible urinary tract infection * continue IV Rocephin pending cultures sensitivity UA did not grow any bacteria but patient was on oral ABX prior to admission (8) Hypertension: Code(s): I10 - Essential (primary) hypertension Status: Acute Assessment and Plan: * continued patient's hydralazine, losartan, and metoprolol (9) Atrial fibrillation: Code(s): I48.91 - Unspecified atrial fibrillation Status: Acute Assessment and Plan: * continue metoprolol * resumed Eliquis after 48 hours (10) Type 2 diabetes mellitus: Code(s): E11.9 - Type 2 diabetes mellitus without complications Status: Acute Assessment and Plan: * Holding patient's Mounjaro and metformin * low-dose SSI * Accu-Gayla prado HS * Resume Mounjaro Due * diabetic diet * hypoglycemic protocol (11) MARTHA on CPAP: Code(s): G47.33 - Obstructive sleep apnea (adult) (pediatric); Z99.89 - Dependence on other enabling machines and devices Status: Acute Assessment and Plan: * resume patient's home CPAP * may bleed in 2 L supplemental oxygen at night (12) Elevated liver enzymes: Code(s): R74.8 - Abnormal levels of other serum enzymes Status: Acute Assessment and Plan: Elevation on enzymes 01/17, No ABD pain or GI complaints could secondary to doxy that was started on admission. * D/C doxycycline Rocephin will cover for prostatitis I had mistakenly started doxy for proctitis but patient has prostatitis * Trend enzymes improving after d/C of doxycycline Plan Code status: Full code per patient DVT prophylaxis: Eliquis on hold Stress ulcer prophylaxis: Protonix 40 daily PT/OT notes: PT/OT pending Disposition: patient admitted to the medical unit for further evaluation and treatment of bacteremia, hyponatremia, frequent falls, generalized weakness with unsteady gait, rhabdomyolysis, urinary retention secondary to proctitis, BPH and possible UTI. patient's final blood culture showed Klebsiella pneumoniae pansensitive except for ampicillin. Transition patient from Rocephin to Augmentin will need t.i.d. at discharge if 2nd set of blood cultures remains NGTD for 48hrs he can likely discharge home tomorrow. Time Spent With Patient Time with patient: 15 - 25 minutes Subjective Date/time seen: 01/18/25 08:24 Interval history: patient is a 74-year-old male who was admitted to the medical unit for further evaluation generalized weakness, UTI intermittent urinary retention, fall, hyponatremia and now with bacteremia. 01/18/2025: Patient overall feeling better today reports weakness improving worked with PT/OT and was able to do stairs twice, did report mild burning with the start of his voids likely trauma from catheter insertion x 2 no with condom cath UA with no growth. Review of Systems Review of Systems: All systems reviewed & are unremarkable except as noted in HPI and below Exam Const: General: comfortable and no acute distress HENMT: Mouth: Yes moist mucous membranes Eyes: General: appearance normal, both eyes and all related structures Sclera: sclerae normal Pupils: Equal, round and reactive pupils present Neck: Neck: supple and no JVD Resp: Effort & Inspection: normal respiratory effort Auscultation: clear to auscultation bilaterally Cardio: Rate: regular rate Rhythm: regular rhythm GI: Auscultation: normal bowel sounds : Other: distended bladder Skin: General skin exam: normal color and no rashes or lesions noted Wounds: no wounds Neuro: General: gait normal Cranial nerves: Yes Equal, round and reactive pupils present Speech: normal speech Motor exam (neuro): 5/5 motor strength present throughout Sensory Exam: normal sensation Extrem: General: normal to inspection Psych: Mental Status: mental status grossly normal Affect: normal affect Objective Data Vital Signs Vital Signs: Vital Signs - 24 hr 01/17/25 09:36 01/17/25 09:36 01/17/25 16:00 Temperature 98.1 F Pulse Rate 64 64 60 Respiratory Rate 18 Blood Pressure 126/65 Pulse Oximetry 97 Oxygen Delivery Room Air 01/17/25 20:00 01/17/25 20:03 01/18/25 00:00 Temperature 98.6 F Pulse Rate 60 60 59 L Respiratory Rate 18 17 Blood Pressure 131/69 Pulse Oximetry 97 96 Oxygen Delivery Room Air Room Air Intake/Output Intake/Output: Intake & Output 01/15/25 01/16/25 01/17/25 01/18/25 23:59 23:59 23:59 23:59 Intake Total 5530 3900 1880 340 Output Total 1200 1700 1100 1850 Balance 4330 2200 780 -1510 Meds/Results Medications: Active Medications Generic Name Dose Route Start Last Admin Trade Name Freq PRN Reason Stop Dose Admin Acetaminophen 650 mg 01/14/25 17:23 01/17/25 18:45 Acetaminophen 325 Mg Tablet PO 650 mg Q4H PRN Administration Mild Pain (1-3) or Fever Albuterol 2 puff 01/14/25 20:38 01/15/25 00:12 Albuterol Sulfate (*Sp) Inhaler INHALATION 2 puff Q4H PRN Administration Shortness Of Breath Amoxicillin/Clavulanate Potassium 1 tablet 01/18/25 08:30 Amoxicillin/Clavulanate K 875-125 Mg Tab PO 01/23/25 22:01 Q8HR JOHN Apixaban 5 mg 01/14/25 21:00 01/14/25 21:44 Apixaban 2.5 Mg Tablet PO 5 mg Q12HR JOHN Administration Dextrose 12.5 gm 01/15/25 08:53 Dextrose 50% 25 Gm/50 Ml Syringe IV PUSH PRN PRN Hypoglycemia Protocol Flecainide Acetate 100 mg 01/14/25 21:00 01/17/25 20:03 Flecainide Acetate 100 Mg Tablet BY MOUTH 100 mg Q12HR JOHN Administration Furosemide 10 mg 01/16/25 17:00 01/17/25 17:56 Furosemide 10 Mg Tablet PO 10 mg BID JOHN Administration Gabapentin 200 mg 01/14/25 20:40 01/17/25 17:56 Gabapentin 100 Mg Capsule PO 200 mg BID JOHN Administration Glucagon 1 mg 01/15/25 08:53 Glucagon For Inj 1 Mg Vial IM PRN PRN Hypoglycemia Protocol Glucose 15 gm 01/15/25 08:53 Glucose Oral Gel 15 Gm Of Glucse In 37.5 Gm Tube PO PRN PRN Hypoglycemia Protocol Hydralazine HCl 75 mg 01/14/25 22:00 01/18/25 05:29 Hydralazine Hcl 25 Mg Tablet PO 75 mg Q8HR JOHN Administration Dextrose 1,000 mls @ 100 mls/hr 01/15/25 08:53 Dextrose 5% 1,000 Ml IVPB PRN PRN Hypoglycemia Protocol Insulin Human Lispro 2 - 5 units 01/15/25 09:15 01/17/25 17:00 Insulin Human Lispro (*Bkc) 1,000 Units/10 Ml Vial SUB-Q Not Given TIDWM JOHN Protocol Losartan Potassium 100 mg 01/15/25 09:00 01/17/25 09:36 Losartan Potassium 50 Mg Tablet PO 100 mg DAILY JOHN Administration Metoprolol Succinate 12.5 mg 01/15/25 09:00 01/17/25 09:36 Metoprolol Succinate Ext Rel 12.5 Mg Tabcr BY MOUTH 12.5 mg DAILY JOHN Administration Nonformulary Drug ( 15 mg 01/24/25 09:00 Tirzepatide [ SUB-Q 02/23/25 08:59 Mounjaro) 15mg Sub-Q WEEKLY JOHN Weekly On Friday') Ondansetron HCl 4 mg 01/14/25 17:23 Ondansetron Inj 4 Mg/2 Ml Vial IV PUSH Q6H PRN Nausea And Vomiting Pantoprazole Sodium 40 mg 01/14/25 21:00 01/17/25 20:04 Pantoprazole 40 Mg Tablet PO 40 mg Q12H JOHN Administration Senna/Docusate Sodium 1 tab 01/15/25 21:00 01/17/25 20:04 Senna/Docusate Sodium Tablet PO Not Given HS JOHN Sodium Chloride 1 gm 01/17/25 09:00 01/17/25 17:56 Sodium Chloride 1 Gm Tablet PO 1 gm BID JOHN Administration Tamsulosin HCl 0.8 mg 01/15/25 09:00 01/17/25 09:36 Tamsulosin Hcl 0.4 Mg Capsule PO 0.8 mg DAILY JOHN Administration Timolol Maleate 1 drop 01/14/25 21:00 01/17/25 20:03 Timolol Maleate 0.5% Op Soln 5 Ml Bottle RIGHT EYE 1 drop Q12H JOHN Administration Radiology Results: ITS Impressions Chest X-Ray 01/14/25 16:04 IMPRESSION: No acute cardiopulmonary pathology. Head CT 01/14/25 16:04 IMPRESSION: No acute intracranial process. CT findings that may reflect chronic left sphenoid sinusitis in the appropriate clinical context Labs Labs: Laboratory Results - last 24 hr 01/17/25 01/17/25 01/17/25 11:31 16:39 19:57 WBC RBC Hgb Hct MCV MCH MCHC RDW Plt Count MPV Sodium Potassium Chloride Carbon Dioxide Anion Gap BUN Creatinine Estim Creat Clear Calc Estimated GFR Glucose POC Capillary Glucose 119 H 98 114 H Calculated Osmolality Calcium Magnesium Total Bilirubin AST ALT Alkaline Phosphatase Total Protein Albumin 01/18/25 07:47 WBC 7.8 RBC 3.76 L Hgb 11.4 L Hct 32.8 L MCV 87.2 MCH 30.3 MCHC 34.8 RDW 13.8 Plt Count 167 MPV 8.6 L Sodium 129 L Potassium 3.8 Chloride 97 L Carbon Dioxide 29 Anion Gap 3 L BUN 12 Creatinine 0.82 Estim Creat Clear Calc 85 Estimated GFR > 60 Glucose 95 POC Capillary Glucose Calculated Osmolality 267 L Calcium 8.4 Magnesium 1.6 Total Bilirubin 0.6 AST 77 H ALT 85 H Alkaline Phosphatase 155 H Total Protein 5.8 L Albumin 3.0 L Quality VTE Prophylaxis VTE prophylaxis: pharmacologic ordered -Patient's previous records reviewed on admission -ER notes reviewed in detail on admission -discussed all findings and current treatment plan with patient/Family/POA -Consultations reviewed for recommendations -Patient's disposition for safe discharge discussed with manager of case management Dictation performed by [employer] direct speech recognition software, therefore behavioral health tech variants and typographical errors may occur. Hospitalist MIPS Advance Care Plan I have confirmed that the patient's Advanced Care Plan is present, code status is documented, or surrogate decision maker is listed in patient medical record.: Yes Medication Reconciliation I have utilized all available resources to obtain, update and review the patients current medications (includes all prescriptions, OTC, herbals, cannabis, and nutritional supplements).: Yes The patient is not eligible for med reconciliation; the patient is in a emergent medical situation where delaying treatment would jeopardize the patients health.: No
[2025-01-18 09:06] VITALS: PULSE 60
[2025-01-18] MEDS: TIMOLOL MALEATE 0.5% OP SOLN 5 ML BOTTLE 1 DROP RIGHT EYE ×2 (09:06→20:12)
[2025-01-18] MEDS: FLECAINIDE ACETATE 100 MG TABLET BY MOUTH ×2 (09:06→20:12)
[2025-01-18] MEDS: METOPROLOL SUCCINATE EXT REL 12.5 MG TABCR BY MOUTH (09:06)
[2025-01-18] MEDS: GABAPENTIN 100 MG CAPSULE 200 MG PO ×2 (09:06→17:28)
[2025-01-18] MEDS: LOSARTAN POTASSIUM 50 MG TABLET 100 MG PO (09:06)
[2025-01-18] MEDS: APIXABAN 2.5 MG TABLET 5 MG PO ×2 (09:06→20:13)
[2025-01-18] MEDS: FUROSEMIDE 10 MG TABLET PO ×2 (09:06→17:28)
[2025-01-18] MEDS: SODIUM CHLORIDE 1 GM TABLET PO ×2 (09:07→17:28)
[2025-01-18] MEDS: PANTOPRAZOLE 40 MG TABLET PO ×2 (09:07→20:13)
[2025-01-18] MEDS: TAMSULOSIN HCL 0.4 MG CAPSULE 0.8 MG PO (09:07)
[2025-01-18 16:00] VITALS: BP 139/72; PULSE 60; RESP 18; TEMP 36.7; O2SAT 97
[2025-01-18] MEDS: SENNA/DOCUSATE SODIUM TABLET 1 TAB PO (20:13)
[2025-01-18] MEDS: ACETAMINOPHEN 325 MG TABLET 650 MG PO (20:13)
[2025-01-19] VITALS: BP 136/76; PULSE 61; RESP 17; TEMP 36.4; O2SAT 95
[2025-01-19 05:33] LABS: Hematocrit 32.0 % (37.0-46.0); Hemoglobin 10.9 g/dL (12.4-15.3); Mean Corpuscular HGB Conc 34.1 g/dL (32-36); Mean Corpuscular Hemoglobin 29.5 pg (27.0-31.0); Mean Corpuscular Volume 86.7 fL (78.0-102.0); Platelet Count Result 181 K/mm3 (150-420); Red Blood Count 3.69 M/mm3 (4.70-6.10); White Blood Count 7.0 K/mm3 (4.8-10.8)
[2025-01-19 05:42] LABS: Alanine Aminotransferase 67 U/L (6-50); Albumin Level 3.0 g/dL (3.5-5.1); Alkaline Phosphatase 136 U/L (38-126); Anion Gap 5 mmol/L (4-12); Aspartate Amino Transferase 54 U/L (17-59); Bilirubin,Total 0.7 mg/dL (0.2-1.3); Blood Urea Nitrogen 12 mg/dL (9-20); Calcium 8.4 mg/dL (8.4-10.2); Carbon Dioxide 29 mmol/L (22-30); Chloride 97 mmol/L (98-107); Estimated CRCL calculation 82 ml/min; Estimated Glomerular Filt Rate > 60; Glucose 90 mg/dL (65-110); Magnesium 1.6 mg/dL (1.6-2.3); Osmolality Calculated 271 mOsm/kg (285-295); Potassium 3.6 mmol/L (3.4-5.0); Sodium 131 mmol/L (137-145); Total Protein 5.8 g/dL (6.3-8.2)
[2025-01-19 08:00] VITALS: BP 122/71; PULSE 60; RESP 18; TEMP 36.2; O2SAT 95
[2025-01-19] MEDS: TAMSULOSIN HCL 0.4 MG CAPSULE 0.8 MG PO (09:31)
[2025-01-19] MEDS: PANTOPRAZOLE 40 MG TABLET PO (09:31)
[2025-01-19] MEDS: SODIUM CHLORIDE 1 GM TABLET PO (09:31)
[2025-01-19 09:32] VITALS: PULSE 74
[2025-01-19] MEDS: METOPROLOL SUCCINATE EXT REL 12.5 MG TABCR BY MOUTH (09:32)
[2025-01-19] MEDS: FLECAINIDE ACETATE 100 MG TABLET BY MOUTH (09:32)
[2025-01-19] MEDS: GABAPENTIN 100 MG CAPSULE 200 MG PO (09:32)
[2025-01-19] MEDS: LOSARTAN POTASSIUM 50 MG TABLET 100 MG PO (09:32)
[2025-01-19] MEDS: TIMOLOL MALEATE 0.5% OP SOLN 5 ML BOTTLE 1 DROP RIGHT EYE (09:33)
[2025-01-19] MEDS: FUROSEMIDE 10 MG TABLET PO (09:33)
[2025-01-19] MEDS: APIXABAN 2.5 MG TABLET 5 MG PO (09:33)
--- NOTE | 2025-01-19 10:22 | P.DS_ITS ---
DS: Admitting Diagnosis Discharge Date 01/19/25 Admitting Diagnosis Weakness , prostatist, hyponatremia DS: Discharge Diagnosis Discharge Diagnosis (1) UTI (urinary tract infection): Code(s): N39.0 - Urinary tract infection, site not specified Status: Acute (2) Acute prostatitis: Code(s): N41.0 - Acute prostatitis Status: Acute (3) Weakness: Code(s): R53.1 - Weakness Status: Acute (4) Acute hyponatremia: Code(s): E87.1 - Hypo-osmolality and hyponatremia Status: Acute DS: Summary Time Spent with Patient Time attestation: Total time spent providing and/or coordinating discharge services: Exam Const: General: healthy appearing, comfortable, no acute distress and well nourished Nutritional Appearance: well nourished Orientation/consciousness: patient oriented x3 Limitations: no limitations HENMT: Head: normal to inspection Ears: external ears normal Face/Nose/Sinus: Normal external nose present Mouth: Yes moist mucous membranes Eyes: General: appearance normal, both eyes and all related structures Conjunctivae: conjunctivae normal Sclera: sclerae normal Pupils: Equal, round and reactive pupils present EOM: EOMs intact bilaterally Neck: Neck: normal visual inspection, no meningeal signs, supple and no JVD Chest: Chest palpation & inspection: normal inspection of the chest Resp: Effort & Inspection: normal respiratory effort and not labored Auscultation: clear to auscultation bilaterally and no crackles Cardio: Rate: regular rate Rhythm: regular rhythm Heart sounds: no murmurs GI: Inspection: non-distended Auscultation: normal bowel sounds : General: Yes bladder normal to palpation and Yes no CVA tenderness Other: distended bladder Back/Spine/Pelvis: Back: no CVA tenderness Skin: General skin exam: normal color and no rashes or lesions noted Rashes: no rashes Wounds: no wounds Neuro: General: patient oriented x3, gait normal, moves all extremities, no meningeal signs, no focal motor deficits ( some weakness to the left lower extremity however it is due to groin pain) and CN's II-XI intact bilaterally Cranial nerves: Yes Equal, round and reactive pupils present and Yes Nystagmus not present Speech: normal speech Gait exam (Neuro): Normal gait present Motor exam (neuro): 5/5 motor strength present throughout Sensory Exam: normal sensation Other: fast exam is negative, GCS is 15, NIH score 0, patient was able to hold up the left lower extremity when pushed to get it done without a drift but pain in the groin occurred Extrem: General: normal to inspection Psych: Mental Status: mental status grossly normal Affect: normal affect Attitude: cooperative DS: Data Data Completed and Pending Labs on day of discharge: Labs from last 24 hours 01/19/25 01/19/25 01/19/25 07:44 05:23 05:22 WBC 7.0 RBC 3.69 L Hgb 10.9 L Hct 32.0 L MCV 86.7 MCH 29.5 MCHC 34.1 RDW 14.0 Plt Count 181 MPV 8.4 L Sodium 131 L Potassium 3.6 Chloride 97 L Carbon Dioxide 29 Anion Gap 5 BUN 12 Creatinine 0.85 Estim Creat Clear Calc 82 Estimated GFR > 60 Glucose 90 POC Capillary Glucose 98 Calculated Osmolality 271 L Calcium 8.4 Magnesium 1.6 Total Bilirubin 0.7 AST 54 ALT 67 H Alkaline Phosphatase 136 H Total Protein 5.8 L Albumin 3.0 L 01/18/25 01/18/25 01/18/25 20:29 16:42 12:02 WBC RBC Hgb Hct MCV MCH MCHC RDW Plt Count MPV Sodium Potassium Chloride Carbon Dioxide Anion Gap BUN Creatinine Estim Creat Clear Calc Estimated GFR Glucose POC Capillary Glucose 111 H 111 H 97 Calculated Osmolality Calcium Magnesium Total Bilirubin AST ALT Alkaline Phosphatase Total Protein Albumin Preliminary micro results at discharge 01/17/25 07:49 Blood Culture - Preliminary Blood 01/17/25 07:37 Blood Culture - Preliminary Blood Discharge Plan Discharge Attending physician on discharge: Jas Byrne Consulting providers: Gisel Chong Discharging Clinician: David Veras Anticipated Discharge Date/Time: 01/19/25 10:17 Patient Disposition: Home Activity: may shower and follow weight bearing status Patient Instructions: Antibiotic Form, Apixaban (By mouth), Prostatitis (GEN), Hyponatremia (DC), Weakness (DC) Patient Language: Persian Stand Alone Forms: General Discharge Information Follow-up/Referrals: Gretchen Jeffrey MD [Primary Care Provider] - (call and schedule appointment ) Discharge Medications: New sodium chloride 1,000 mg Tablet,Soluble 1,000 mg PO BID Qty: 20 0RF amoxicillin-pot clavulanate [Augmentin] 500-125 mg tablet 1 tablet PO Q12H Qty: 14 0RF Continued ipratropium bromide 42 mcg (0.06 %) spray,non-aerosol 2 spray INTRANASAL TID diclofenac sodium 1 % gel 2 g topical QID Rx Instructions: affected area pantoprazole 40 mg tablet,delayed release (DR/EC) 40 mg PO Q12H cyanocobalamin (vitamin B-12) 1,000 mcg tablet 1,000 mcg PO DAILY cyclobenzaprine 10 mg tablet 10 mg PO TID PRN (Reason: muscle spasm) albuterol 90 mcg/actuation aerosol 90 mcg inhalation Q4H PRN (Reason: SOB) Rx Instructions: 2 puffs as needed hydralazine 25 mg tablet 75 mg PO TID timolol 0.5 % drops 1 drp RIGHT EYE Q12H losartan 100 mg tablet 100 mg PO DAILY Eliquis 5 mg tablet 5 mg PO BID polyethylene glycol 3350 [Miralax] 17 gram powder in packet 17 g PO QAM PRN (Reason: constipation) Mounjaro 12.5 mg/0.5 mL pen injector 15 mg subcut WEEKLY tamsulosin 0.4 mg capsule 0.8 mg PO DAILY gabapentin 100 mg capsule 200 mg PO BID fluticasone propionate 50 mcg/actuation spray,suspension 2 spray INTRANASAL HS metformin 500 mg tablet extended release 24 hr 1,000 mg PO BID flecainide 100 mg tablet See Rx Instructions .ROUTE .COMPLEX Qty: 180 2RF Dose Instruction: TAKE 1 TABLET BY MOUTH EVERY 12 HOURS Rx Instructions: TAKE 1 TABLET BY MOUTH EVERY 12 HOURS metoprolol succinate 25 mg tablet extended release 24 hr See Rx Instructions .ROUTE .COMPLEX Qty: 45 2RF Dose Instruction: TAKE 1/2 TABLET BY MOUTH DAILY Rx Instructions: TAKE 1/2 TABLET BY MOUTH DAILY Other Ambulatory Orders: PT Outpatient Eval and Treat (ONCE) Timeframe: 20250126 Location: Determined by Patient Ordered By: David Veras Basic Metabolic Panel (Routine) Timeframe: 1 Week Location: Determined by Patient Ordered By: David Veras Complete Blood Count no Diff (Routine) Timeframe: 1 Week Location: Determined by Patient Ordered By: David Veras Date of admission: 01/16/25 09:26 Primary Care Provider: Gretchen Jeffrey Admitting Provider: Jas Byrne Attending physician on admission: Jas Byrne Condition: Stable
--- NOTE | 2025-01-19 13:20 | PC.NURSE ---
Discharge instructions reviewed with and patient, deneis questions, is alert and oriented x4 and agreeable to discharge. scripts sent electronically, reviewed outpatient orders for lab and physical therapy.
--- NOTE | 2025-01-21 10:24 | PC.NURSE ---
Discharge call back made. No answer and unable to leave message r/t did not identify self.
--- NOTE | 2025-02-16 06:24 | PM.DS ---
DS: Admitting Diagnosis Discharge Date 01/19/25 Admitting Diagnosis Hyponatremia, Weakness, Fall DS: Discharge Diagnosis Discharge Diagnosis (1) UTI (urinary tract infection): Code(s): N39.0 - Urinary tract infection, site not specified Status: Acute Assessment and Plan: continue oral antibioitics (2) Acute prostatitis: Code(s): N41.0 - Acute prostatitis Status: Acute Assessment and Plan: continue oral antibioitic (3) Weakness: Code(s): R53.1 - Weakness Status: Acute Assessment and Plan: Physical therapy (4) Acute hyponatremia: Code(s): E87.1 - Hypo-osmolality and hyponatremia Status: Acute Assessment and Plan: resolved DS: Summary Hospital Course Reason for hospitalization: hyponatremia, Weakness Hospital Course: This is a 74 year old male who was admitted to the hospital who had a fall and hit his head was found to be hyponatremic, with prostatic, Weakness. Patient has been treated with Intervenous fluids requiring as well sodium tablets and physical therapy. Patient has continued to improve but still requires sodium tablet and will need to have follow up with his primary care provider to address his hyponatremia and monitor his level as well as his prostate issue. Patient will continue on oral antibioitics for 10 days. He will have outpatient physical therapy. Time Spent with Patient Time attestation: Total time spent providing and/or coordinating discharge services: Exam Const: General: healthy appearing, comfortable and no acute distress HENMT: Mouth: Yes moist mucous membranes Eyes: General: appearance normal, both eyes and all related structures Sclera: sclerae normal Pupils: Equal, round and reactive pupils present Neck: Neck: supple and no JVD Resp: Effort & Inspection: normal respiratory effort Auscultation: clear to auscultation bilaterally Cardio: Rate: regular rate Rhythm: regular rhythm GI: Auscultation: normal bowel sounds : General: Yes no CVA tenderness Other: distended bladder Skin: General skin exam: normal color and no rashes or lesions noted Wounds: no wounds Neuro: General: patient oriented x3 and gait normal Cranial nerves: Yes Equal, round and reactive pupils present Speech: normal speech Motor exam (neuro): 5/5 motor strength present throughout Sensory Exam: normal sensation Other: fast exam is negative, GCS is 15, NIH score 0, patient was able to hold up the left lower extremity when pushed to get it done without a drift but pain in the groin occurred Extrem: General: normal to inspection Psych: Mental Status: mental status grossly normal Affect: normal affect Discharge Plan Discharge Attending physician on discharge: Jas Byrne Consulting providers: Gisel Chong; David Veras; German Rawls; Bill Lira Discharging Clinician: David Veras Anticipated Discharge Date/Time: 01/19/25 10:17 Patient Disposition: Home Activity: may shower and follow weight bearing status Diet: as tolerated Discharge Instructions: Outpatient PT at [facility] appointment January 21, 2025 @ 1:00PM Patient Instructions: Antibiotic Form, Amoxicillin/Clavulanate Potassium (By mouth), Apixaban (By mouth), Prostatitis (GEN), Hyponatremia (DC), Fall Prevention for Older Adults (DC), Weakness (DC) Patient Language: Cambodian Stand Alone Forms: General Discharge Information Follow-up/Referrals: Gretchen Jeffrey MD [Primary Care Provider, Internal Medicine] Referral Note: call and schedule appointment Discharge Medications: New sodium chloride 1,000 mg Tablet,Soluble 1,000 mg PO BID Qty: 20 0RF amoxicillin-pot clavulanate [Augmentin] 500-125 mg tablet 1 tablet PO Q12H Qty: 14 0RF Continued ipratropium bromide 42 mcg (0.06 %) spray,non-aerosol 2 spray INTRANASAL TID diclofenac sodium 1 % gel 2 g topical QID Rx Instructions: affected area pantoprazole 40 mg tablet,delayed release (DR/EC) 40 mg PO Q12H cyanocobalamin (vitamin B-12) 1,000 mcg tablet 1,000 mcg PO DAILY cyclobenzaprine 10 mg tablet 10 mg PO TID PRN (Reason: muscle spasm) albuterol 90 mcg/actuation aerosol 90 mcg inhalation Q4H PRN (Reason: SOB) Rx Instructions: 2 puffs as needed hydralazine 25 mg tablet 75 mg PO TID timolol 0.5 % drops 1 drp RIGHT EYE Q12H losartan 100 mg tablet 100 mg PO DAILY Eliquis 5 mg tablet 5 mg PO BID polyethylene glycol 3350 [Miralax] 17 gram powder in packet 17 g PO QAM PRN (Reason: constipation) Mounjaro 12.5 mg/0.5 mL pen injector 15 mg subcut WEEKLY tamsulosin 0.4 mg capsule 0.8 mg PO DAILY gabapentin 100 mg capsule 200 mg PO BID fluticasone propionate 50 mcg/actuation spray,suspension 2 spray INTRANASAL HS metformin 500 mg tablet extended release 24 hr 1,000 mg PO BID flecainide 100 mg tablet See Rx Instructions .ROUTE .COMPLEX Qty: 180 2RF Dose Instruction: TAKE 1 TABLET BY MOUTH EVERY 12 HOURS Rx Instructions: TAKE 1 TABLET BY MOUTH EVERY 12 HOURS metoprolol succinate 25 mg tablet extended release 24 hr See Rx Instructions .ROUTE .COMPLEX Qty: 45 2RF Dose Instruction: TAKE 1/2 TABLET BY MOUTH DAILY Rx Instructions: TAKE 1/2 TABLET BY MOUTH DAILY Other Ambulatory Orders: PT Outpatient Eval and Treat (ONCE) Timeframe: 20250126 Location: Determined by Patient Ordered By: David Veras Date of admission: 01/16/25 09:26 Primary Care Provider: Gretchen Jeffrey Admitting Provider: Jas Byrne Attending physician on admission: Jas Byrne Condition: Stable Quality VTE Prophylaxis VTE prophylaxis: pharmacologic ordered
== END 2025-01-19 13:20 | disposition home or self-care (01) | DRG 644 ==
LOC: CHSED 16:18 → CHS2ND 17:31
PROVIDERS: Nurse Practitioner Family; Admitting Provider Internal Medicine; Emergency Provider Emergency Medicine; PCP Internal Medicine; Visit Provider Internal Medicine
DX: E22.2 Syndrome of inappropriate secretion of antidiuretic hormone (principal); M62.82 Rhabdomyolysis; N39.0 Urinary tract infection, site not specified; N41.0 Acute prostatitis; R78.81 Bacteremia; B96.1 Klebsiella pneumoniae [K. pneumoniae] as the cause of diseases classified elsewhere; E11.9 Type 2 diabetes mellitus without complications; G47.33 Obstructive sleep apnea (adult) (pediatric); I48.91 Unspecified atrial fibrillation; N40.1 Benign prostatic hyperplasia with lower urinary tract symptoms; R33.8 Other retention of urine; R29.6 Repeated falls; R26.9 Unspecified abnormalities of gait and mobility; R74.8 Abnormal levels of other serum enzymes; R53.1 Weakness; W19.XXXA Unspecified fall, initial encounter; Z79.84 Long term (current) use of oral hypoglycemic drugs; Z99.89 Dependence on other enabling machines and devices; Z79.01 Long term (current) use of anticoagulants
CPT/HCPCS: 36415; 70450; 71045; 80053; 81001; 82550; 82948; 83605; 83735; 84484; 85025; 85027; 85055; 85610; 85730; 87040; 87086; 93005; 96361; 96365; 96366; 96375; 97110; 97162; 97165; 97530; 97535; 99285; A9270; G0378; J0696; J0744; J7030

== ENCOUNTER 2025-01-21 15:49 | Outpatient (RCR) | payer MEDICARE, SELFPAY ==
--- NOTE | 2025-01-21 17:07 | OPREHPOC ---
Outpatient Therapy Plan of Care This is a Multidisciplinary Plan of Care that may contain components documented by all disciplines (PT, OT, and ST.) PT Problem 1 PT Problem #1 Knowledge Deficit PT Goal 1 Goal / Goal Update Independent and compliant with HEP. Target Visit 2 PT Problem 2 PT Problem #2 Impaired Strength PT Goal 1 Goal / Goal Update Pt to improve bilat hip flexion strength to 4+/5. Pt to improve bilat hip adduction strength to 5/5. Pt to improve gross knee and ankle strength to 5/5 . Target Visit 12 PT Problem 3 PT Problem #3 Impaired Balance PT Goal 1 Goal / Goal Update Pt to improve Tinetti score by 5 points indicating improvement from high to moderate fall risk. Pt to improve TUG score to 18 seconds or less using cane. Pt to demonstrate ability to balance on uneven surface without UE support to improve ability to ambulate on carpet and outdoors. Target Visit 12 PT Problem 4 PT Problem #4 Impaired Functional Mobility PT Goal 1 Goal / Goal Update Pt to improve 6MWT distance to 950ft using cane with minimal path deviation and postural sway. Pt to improve 5xSTS time to 25 seconds or less to indicate improved LE strength and efficiency. Target Visit 12
--- NOTE | 2025-01-21 17:07 | PTOPEVAL1 ---
Assessment and note entered by Lilia Arreguin, PT Evaluation Information Assessment Status Evaluation ICD-10 Condition Codes (PT) Repeated falls R29.6,Difficulty Walking R26.2, Weakness R53.1 Onset 12/16/24 Subjective Information Pt reports he was recently admitted to swing bed for rehab at [facility] for 5 days for bladder infection that lead to weakness and multiple falls. He discharged home and is now presenting to outpatient evaluation for weakness. He currently ambulates with a straight cane which he claims is his baseline. He is able to ambulate around the house and get up/down the stairs to enter the home without difficulty. He reports that since getting home from the hospital he has walked around [employer] and reports this was very tiring and hard on his knees. He is able to walk the dog twice per day for about 400ft at a time. He cuts grass using a riding mower but otherwise doesn't do any other outdoor yard/farm work. Pt does drive without difficulty. Reported Pain Level Pain Score 0: Self Report Assessment PT Clinical Summary Mr. Justin is a 74 yo male presenting for skilled PT evaluation for weakness following recent hospital stay. He demonstrates moderate hip mm weakness as well as mild knee mm weakness. He also demonstrates overall imbalance and gait deviations that contribute to fall risk, as well as low Tinetti score indicating high fall risk and prolonged TUG and 5xSTS times. He will benefit from skilled PT intervention to improve strength, balance and endurance to perform daily functional activities with less difficulty. Plan of Care Interventions Electrical Stimulation,Gait Training,Hot Pack/Cold Pack,Manual Therapy,Neuro Re-education,Patient/ Caregiver Education,Therapeutic Activities, Therapeutic Exercise,Self-Care/Home Management PT Services Indicated Yes Treatment Frequency and 2x/week for 12 visits Duration These treatments will address the objective and functional deficits as defined above. The patient will be advanced safely and appropriately in order for the patient to progress towards his/her prior level of function. Additional exercises will be introduced and as well as a comprehensive home exercise program upon discharge, if needed, ?to ensure carryover of functional gains achieved in the clinic. This treatment plan has been reviewed and agreement upon by the patient.
--- NOTE | 2025-02-22 11:29 | OPREHPOC ---
Outpatient Therapy Plan of Care This is a Multidisciplinary Plan of Care that may contain components documented by all disciplines (PT, OT, and ST.) PT Problem 1 PT Problem #1 Knowledge Deficit PT Goal 1 Goal / Goal Update Independent and compliant with HEP. Target Visit 2 Progress Met PT Problem 2 PT Problem #2 Impaired Strength PT Goal 1 Goal / Goal Update Pt to improve bilat hip flexion strength to 4+/5. -met Pt to improve bilat hip adduction strength to 5/5. -met Pt to improve gross knee and ankle strength to 5/5 . -partially met Target Visit 12 PT Problem 3 PT Problem #3 Impaired Balance PT Goal 1 Goal / Goal Update Pt to improve Tinetti score by 5 points indicating improvement from high to moderate fall risk. - not assessed Pt to improve TUG score to 18 seconds or less using cane. -met Pt to demonstrate ability to balance on uneven surface without UE support to improve ability to ambulate on carpet and outdoors. Target Visit 12 PT Problem 4 PT Problem #4 Impaired Functional Mobility PT Goal 1 Goal / Goal Update Pt to improve 6MWT distance to 950ft using cane with minimal path deviation and postural sway. - progress towards Pt to improve 5xSTS time to 25 seconds or less to indicate improved LE strength and efficiency. - not assessed Target Visit 12
--- NOTE | 2025-02-22 11:29 | PTOPPROG ---
Assessment and note entered by Alka Mantilla, PT Evaluation Information Assessment Status Progress ICD-10 Condition Codes (PT) Repeated falls R29.6,Difficulty Walking R26.2, Weakness R53.1 Onset 12/16/24 Subjective Information Pt reports he is getting stronger and able to do more compared to when he first started. He notes his balance is still off but he has neuropathy and doesn't think that will ever be the same. Assessment PT Clinical Summary Mr. Justin is a 74 yo male who has completed 10 out of 12 skilled PT visits for weakness following a recent hospital stay. He reports feeling stronger and being able to do more around the house. He is progressing toward his goals well and will likely be ready for discharge at 12 visits. Plan of Care Interventions Neuro Re-education,Patient/Caregiver Education, Therapeutic Activities,Therapeutic Exercise,Self- Care/Home Management PT Services Indicated Yes Treatment Frequency and Continue per original POC for 2 additional visits Duration These treatments will address the objective and functional deficits as defined above. The patient will be advanced safely and appropriately in order for the patient to progress towards his/her prior level of function. Additional exercises will be introduced and as well as a comprehensive home exercise program upon discharge, if needed, ?to ensure carryover of functional gains achieved in the clinic. This treatment plan has been reviewed and agreement upon by the patient.
--- NOTE | 2025-03-01 11:03 | OPREHPOC ---
Outpatient Therapy Plan of Care This is a Multidisciplinary Plan of Care that may contain components documented by all disciplines (PT, OT, and ST.) PT Problem 1 PT Problem #1 Knowledge Deficit PT Goal 1 Goal / Goal Update Independent and compliant with HEP. Target Visit 2 Progress Met PT Problem 2 PT Problem #2 Impaired Strength PT Goal 1 Goal / Goal Update Pt to improve bilat hip flexion strength to 4+/5. -met Pt to improve bilat hip adduction strength to 5/5. -met Pt to improve gross knee and ankle strength to 5/5 . -met Target Visit 12 Progress Met PT Problem 3 PT Problem #3 Impaired Balance PT Goal 1 Goal / Goal Update Pt to improve Tinetti score by 5 points indicating improvement from high to moderate fall risk. - met Pt to improve TUG score to 18 seconds or less using cane. -met Pt to demonstrate ability to balance on uneven surface without UE support to improve ability to ambulate on carpet and outdoors. -met Target Visit 12 Progress Met PT Problem 4 PT Problem #4 Impaired Functional Mobility PT Goal 1 Goal / Goal Update Pt to improve 6MWT distance to 950ft using cane with minimal path deviation and postural sway. - met Pt to improve 5xSTS time to 25 seconds or less to indicate improved LE strength and efficiency. - met Target Visit 12 Progress Met
--- NOTE | 2025-03-01 11:03 | PTOPDC ---
Assessment and note entered by Alka Mantilla, PT Evaluation Information Assessment Status Discharge ICD-10 Condition Codes (PT) Repeated falls R29.6,Difficulty Walking R26.2, Weakness R53.1 Onset 12/16/24 Subjective Information Pt reports he is getting stronger and able to do light yard and house work now. He is not having difficulty with his daily activities. He notes he feels good today and is not having pain. He denies falls since beginning outpatient PT. Reported Pain Level Pain Score 0: Self Report Assessment PT Clinical Summary Mr. Justin is a 74 yo male who has completed 12 out of 12 skilled PT visits for weakness following a recent hospital stay. 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 He demonstrates improved LE strength, improved balance, improved endurance, and improved functional mobility. He has met all of his goals and will be discharged to an independent exercise program. Plan of Care PT Services Indicated No
== END 2025-03-01 20:00 | disposition home or self-care (01) ==
LOC: CHSPT 15:49
PROVIDERS: Visit Provider Nurse Practitioner Family
DX: R53.1 Weakness (principal); R26.2 Difficulty in walking, not elsewhere classified
CPT/HCPCS: 97110; 97112; 97150; 97161; 97530; 97750

== ENCOUNTER 2025-01-26 08:14 | Outpatient (CLI) | payer MEDICARE, SELFPAY ==
--- OUTSIDE RECORDS SUMMARY | 2025-01-26 08:25 | XMS_ITS | Clinical Summary ---
Author Organization [facility] Address [address] [place] [id number] Care Team Providers Care Security Supervisor Name Role Phone Unavailable Primary Care Provider [...] Comments Blood Pressure 138/62 06/16/2015 1:35 PM [employer] Pulse 40 06/16/2015 1:35 PM [employer] Temperature - - Respiratory Rate 18 06/16/2015 1:35 PM [employer] Oxygen Saturation - - Inhaled Oxygen Concentration - - Weight 136.5 kg (301 lb) 06/16/2015 1:35 PM [employer] Height 190.5 cm (6' 3) 06/16/2015 1:35 PM [employer] Body Mass Index 37.62 06/16/2015 1:35 PM [employer] Plan of Treatment Health Maintenance Due Date [...]
--- OUTSIDE RECORDS SUMMARY | 2025-01-26 08:25 | XMS_ITS | Encounter Summary ---
Author Organization [facility] Address [address] [place] [id number] Care Team Providers Care Spinning Frame Fixer Name Role Phone Unavailable Primary Care Provider Unavailabl e Encounter Details Date Type Department Care Team (Late st Contact Info) Description 12/05/2018 Abstract SFL CONVERSION [address] [address] , Generic Conversion, Social History [...]
[2025-01-26 08:56] LABS: Hematocrit 37.5 % (37.0-46.0); Hemoglobin 12.3 g/dL (12.4-15.3); Mean Corpuscular HGB Conc 32.8 g/dL (32-36); Mean Corpuscular Hemoglobin 29.8 pg (27.0-31.0); Mean Corpuscular Volume 90.8 fL (78.0-102.0); Platelet Count Result 444 K/mm3 (150-420); Red Blood Count 4.13 M/mm3 (4.70-6.10); White Blood Count 7.5 K/mm3 (4.8-10.8)
[2025-01-26 08:57] LABS: Add Urine Microscopic? YES; Appearance Urine Clear (Clear); Glucose Urine UA Negative (Negative); Leukocyte Esterase Ur Trace (Negative); Nitrate Urine Negative (Negative); Specific Grav Ur 1.010 (1.010-1.020)
[2025-01-26 10:28] LABS: Alanine Aminotransferase 40 U/L (6-50); Albumin Level 4.0 g/dL (3.5-5.1); Alkaline Phosphatase 133 U/L (38-126); Anion Gap 7 mmol/L (4-12); Aspartate Amino Transferase 37 U/L (17-59); Bilirubin,Total 0.8 mg/dL (0.2-1.3); Blood Urea Nitrogen 15 mg/dL (9-20); Calcium 9.4 mg/dL (8.4-10.2); Carbon Dioxide 26 mmol/L (22-30); Chloride 100 mmol/L (98-107); Estimated Glomerular Filt Rate > 60; Glucose 71 mg/dL (65-110); Osmolality Calculated 274 mOsm/kg (285-295); Potassium 5.0 mmol/L (3.4-5.0); Sodium 133 mmol/L (137-145); Total Protein 6.8 g/dL (6.3-8.2)
[2025-01-26 10:59] LABS: Prostate Specific Antigen 8.7 ng/mL (< OR = 4.0)
== END 2025-01-26 08:15 | disposition home or self-care (01) ==
LOC: CHSLAB 08:15
PROVIDERS: PCP Internal Medicine; Visit Provider Nurse Practitioner Family
DX: E87.1 Hypo-osmolality and hyponatremia (principal); A41.9 Sepsis, unspecified organism; N41.9 Inflammatory disease of prostate, unspecified
CPT/HCPCS: 36415; 80053; 81001; 84153; 85027; 87040; 87086

== ENCOUNTER 2025-01-28 06:48 | Outpatient (CLI) | payer MEDICARE, SELFPAY ==
--- NOTE | ~2025-01-28 | US_ITS ---
US pelvic limited 01/28/2025 07:38 Indication: Urinary retention Procedure: Limited ultrasound of the pelvis using transabdominal technique Comparison: No prior studies for comparison. Findings: Bladder wall is slightly trabeculated. No discrete bladder wall mass. Bladder wall is thick ened measuring 1.3 cm. Prevoid volume 337 cc. Postvoid volume 184 cc. Enlarged prostate gland measuri ng 7 x 5 x 4.6 cm. Impression: 1: Enlarged prostate gland with hypertrophy of the bladder wall. 2: Large post void residual measures 184 cc. Reviewed, dictated and finalized at location A. Impression: 1: Enlarged prostate gland with hypertrophy of the bladder wall. 2: Large post void residual measures 184 cc.
--- OUTSIDE RECORDS SUMMARY | 2025-01-28 06:52 | XMS_ITS | Clinical Summary ---
Author Organization [facility] Address [address] [place] [address] Care Team Providers Care Spares Scheduler Name Role Phone Unavailable Primary Care Provider [...] Comments Blood Pressure 138/62 06/16/2015 1:35 PM PHLEBOTOMIST MEDICAL LAB ASSISTANT Pulse 40 06/16/2015 1:35 PM PHLEBOTOMIST MEDICAL LAB ASSISTANT Temperature - - Respiratory Rate 18 06/16/2015 1:35 PM PHLEBOTOMIST MEDICAL LAB ASSISTANT Oxygen Saturation - - Inhaled Oxygen Concentration - - Weight 136.5 kg (301 lb) 06/16/2015 1:35 PM PHLEBOTOMIST MEDICAL LAB ASSISTANT Height 190.5 cm (6' 3) 06/16/2015 1:35 PM PHLEBOTOMIST MEDICAL LAB ASSISTANT Body Mass Index 37.62 06/16/2015 1:35 PM PHLEBOTOMIST MEDICAL LAB ASSISTANT Plan of Treatment Health Maintenance Due Date [...]
--- OUTSIDE RECORDS SUMMARY | 2025-01-28 06:52 | XMS_ITS | Encounter Summary ---
Author Organization [facility] Address [address] [place] [address] Care Team Providers Care Freelance Designer Name Role Phone Unavailable Primary Care Provider Unavailabl e Encounter Details Date Type Department Care Team (Late st Contact Info) Description 12/05/2018 Abstract SFL CONVERSION [address] [place] [address] , Generic Conversion, Social History [...]
== END 2025-01-28 06:49 | disposition home or self-care (01) ==
PROVIDERS: PCP Internal Medicine; Visit Provider Internal Medicine
DX: R33.9 Retention of urine, unspecified (principal); N40.0 Benign prostatic hyperplasia without lower urinary tract symptoms
CPT/HCPCS: 76857

== ENCOUNTER 2025-04-18 15:29 | Outpatient (CLI) | payer MEDICARE, SELFPAY ==
--- NOTE | 2025-04-18 15:33 | ECG_ITS ---
Test Date: 2025-04-18 15:44:10 Measurements Intervals [place] Rate: 52 P: -79 [place]: 177 QRS: -37 QRSD: 192 T: 43 QT: 516 QTc: 480 Interpretive Statements SINUS OR ECTOPIC ATRIAL BRADYCARDIA RIGHT BUNDLE BRANCH BLOCK INFERIOR INFARCT, AGE INDETERMINATE ABNORMAL ECG Compared to ECG 01/14/2025 15:41:04 HEART RATE HAS DECREASED Electronically Signed On 04-18-2025 16:13:11 CDT by Amrik Fonseca D.O.
--- OUTSIDE RECORDS SUMMARY | 2025-04-18 18:11 | XMS_ITS | Clinical Summary ---
Author Organization [facility] Address [address] [place] [address] Care Team Providers Care Garbage Collection Supervisor Name Role Phone Unavailable Primary Care [...] Comments Blood Pressure 138/62 06/16/2015 1:35 PM BEER STILL RUNNER COMPOUNDER Pulse 40 06/16/2015 1:35 PM BEER STILL RUNNER COMPOUNDER Temperature - - Respiratory Rate 18 06/16/2015 1:35 PM BEER STILL RUNNER COMPOUNDER Oxygen Saturation - - Inhaled Oxygen Concentration - - Weight 136.5 kg (301 lb) 06/16/2015 1:35 PM BEER STILL RUNNER COMPOUNDER Height 190.5 cm (6' 3) 06/16/2015 1:35 PM BEER STILL RUNNER COMPOUNDER Body Mass Index 37.62 06/16/2015 1:35 PM BEER STILL RUNNER COMPOUNDER Plan of Treatment Health Maintenance Due Date Last Done Comments Hepatitis C 1968 DTaP, Tdap and Td Vaccines ( 1 - Tdap) 09/14/1967 Pneumococcal Vaccine: 50+ Ye ars (1 of 1 - PCV) 1998 Zoster Vaccines (1 of 2) 1998 RSV Immunization or 60+ Years (1 - 1-dose 75+ series) 09/14/2023 COVID-19 Vaccine ( - 2023-2 5 season) 2025 Influenza Adult (#1) 2025 Hepatitis A Vaccines Aged Out No long er eligible based on patient's age to complete this topic Meningococcal B Vaccine Aged Out No l onger eligible based on patient's age to complete this topic Meningococcal Vaccine Aged Out No celso celia eligible based on patient's age to complete this topic RSV Immunizations Under 20 Months Aged Out No longer eligible based on patient's age to complete this topic
--- OUTSIDE RECORDS SUMMARY | 2025-04-18 18:11 | XMS_ITS | Encounter Summary ---
Author Organization [facility] Address [address] [place] [address] Care Team Providers Care Reception Centre Manager Name Role Phone Unavailable Primary Care Provider Unavailabl e Encounter Details Date Type Department Care Team (Late st Contact Info) Description 12/05/2018 Abstract SFL CONVERSION [address] [place] [address] , Generic Conversion, Social History [...]
== END 2025-04-18 15:30 | disposition home or self-care (01) ==
LOC: CHSCARD 15:30
PROVIDERS: PCP Internal Medicine; Visit Provider Internal Medicine Cardiovascular Disease
DX: I48.0 Paroxysmal atrial fibrillation (principal); R00.1 Bradycardia, unspecified; I45.10 Unspecified right bundle-branch block; R94.31 Abnormal electrocardiogram [ECG] [EKG]
CPT/HCPCS: 93005

== ENCOUNTER 2025-04-29 15:38 | Outpatient (CLI) | payer MEDICARE, SELFPAY ==
--- NOTE | ~2025-04-29 | XR_ITS ---
EXAMINATION: XR chest 2V, 04/29/2025 15:48 CDT HISTORY: Cough, URI x1 week COMPARISON: No comparisons available. Technique: 2 views obtained. Findings: The lungs are clear, no effusion. No pneumothorax. Heart is normal size. Mediastinal and hilar contours are within normal limits. Bony thorax no acute abnormality. Impression: No acute cardiopulmonary abnormality. Reviewed, dictated and finalized at location P. Impression: No acute cardiopulmonary abnormality.
--- OUTSIDE RECORDS SUMMARY | 2025-04-29 15:43 | XMS_ITS | Clinical Summary ---
Author Organization [facility] Address [address] [place] [address] Care Team Providers Care Doorperson Name Role Phone Unavailable Primary Care Provider [...] Comments Blood Pressure 138/62 06/16/2015 1:35 PM FRUIT OR NUT CROPS FARM MANAGER Pulse 40 06/16/2015 1:35 PM FRUIT OR NUT CROPS FARM MANAGER Temperature - - Respiratory Rate 18 06/16/2015 1:35 PM FRUIT OR NUT CROPS FARM MANAGER Oxygen Saturation - - Inhaled Oxygen Concentration - - Weight 136.5 kg (301 lb) 06/16/2015 1:35 PM FRUIT OR NUT CROPS FARM MANAGER Height 190.5 cm (6' 3) 06/16/2015 1:35 PM FRUIT OR NUT CROPS FARM MANAGER Body Mass Index 37.62 06/16/2015 1:35 PM FRUIT OR NUT CROPS FARM MANAGER Plan of Treatment Health Maintenance Due Date Last Done Comments Hepatitis C 1968 DTaP, Tdap and Td Vaccines ( 1 - Tdap) 09/14/1967 Pneumococcal Vaccine: 50+ Ye ars (1 of 1 - PCV) 1998 Zoster Vaccines (1 of 2) 1998 RSV Immunization or 60+ Years (1 - 1-dose 75+ series) 09/14/2023 COVID-19 Vaccine ( - 2024-2 6 season) 2025 Influenza Adult (#1) 2025 Hepatitis [...]
--- OUTSIDE RECORDS SUMMARY | 2025-04-29 15:43 | XMS_ITS | Encounter Summary ---
Author Organization [facility] Address [address] [place] [address] Care Team Providers Care Cocktail Server Name Role Phone Unavailable Primary Care Provider Unavailabl e Encounter Details Date Type Department Care Team (Late st Contact Info) Description 12/05/2018 Abstract SFL CONVERSION [address] [place] [address] , Generic Conversion, Social [...]
[2025-04-29 16:30] LABS: Hematocrit 36.9 % (37.0-46.0); Hemoglobin 12.1 g/dL (12.4-15.3); Mean Corpuscular HGB Conc 32.8 g/dL (32-36); Mean Corpuscular Hemoglobin 29.8 pg (27.0-31.0); Mean Corpuscular Volume 90.9 fL (78.0-102.0); Platelet Count Result 204 K/mm3 (150-420); Red Blood Count 4.06 M/mm3 (4.70-6.10); White Blood Count 3.7 K/mm3 (4.8-10.8)
[2025-04-29 16:33] LABS: Anion Gap -18 mmol/L (4-12); Blood Urea Nitrogen 18 mg/dL (9-20); Calcium 8.7 mg/dL (8.4-10.2); Carbon Dioxide 28 mmol/L (22-30); Chloride 95 mmol/L (98-107); Estimated Glomerular Filt Rate > 60; Glucose 89 mg/dL (65-110); Osmolality Calculated 220 mOsm/kg (285-295); Potassium 4.4 mmol/L (3.4-5.0)
[2025-04-29 16:42] LABS: Sodium 105 mmol/L (137-145); Strep Group A RT-PCR NOT DETECTED (Negative)
[2025-04-29 16:53] LABS: Influenza A QL RT-PCR Negative (Negative); Influenza B QL RT-PCR Negative (Negative); RSV RNA, RT-PCR Negative (Negative); SARS-CoV-2 RNA PCR Negative (Negative)
== END 2025-04-29 15:39 | disposition home or self-care (01) ==
PROVIDERS: PCP Internal Medicine; Visit Provider Internal Medicine
DX: R05.9 Cough, unspecified (principal); J06.9 Acute upper respiratory infection, unspecified; E87.1 Hypo-osmolality and hyponatremia
CPT/HCPCS: 36415; 71046; 80048; 85027; 87637; 87651

== ENCOUNTER 2025-04-29 17:03 | Emergency (ER) | payer MEDICARE, SELFPAY ==
[2025-04-29] VITALS (20 sets, daily range): BP systolic 117–157; BP diastolic 66–97; PULSE 57–71; RESP 13–22; TEMP 37.4; O2SAT 93–100
--- NOTE | 2025-04-29 17:13 | ED.GENADULT ---
HPI - General Adult General Chief complaint: Recheck/Abnormal Lab/Rx Stated complaint: abnormal labs Time Seen by Provider: 04/29/25 17:13 Source: patient Mode of arrival: ambulatory Limitations: no limitations History of Present Illness HPI narrative: 74-year-old male with a history of hypertension, diabetes mellitus, MARTHA, paroxysmal atrial fibrillation on flecainide, diverticulosis, neuropathy, negative cardiac stress test on 02/05/2021, chronic hyponatremia was sent from his primary care physician's office for upper respiratory tract symptoms. Patient tested negative for strep/RSV/influenza/COVID. Chest x-ray was unremarkable. Patient was noted to a normal white cell count. He was noted to have --low sodium of 105. The patient has a prior history of hyponatremia with the lower sodium being 124 in the past. The patient has been on a 1500 mL fluid restricted diet. No headache or vomiting. No seizures. No altered mental status. The patient has been asymptomatic. Associated symptoms: denies other symptoms Treatments prior to arrival: none Related Data Home Medications ?Medication ?Instructions ?Recorded ?Confirmed ?Last Taken ?Type fluticasone propionate 50 2 spray intranasal HS Congestion 12/23/19 04/18/25 09/23/21 History mcg/actuation nasal spray,suspension metformin 500 mg tablet,extended 1,000 mg PO BID 12/23/19 04/18/25 09/23/21 History release 24 hr timolol 0.5 % eye drops 1 drp RIGHT EYE Q12H 06/18/21 04/18/25 09/23/21 History apixaban 5 mg tablet (Eliquis) 5 mg PO BID 08/22/22 04/18/25 Unknown History losartan 100 mg tablet 100 mg PO DAILY 08/22/22 04/18/25 Unknown History hydralazine 25 mg tablet 75 mg PO TID 12/02/22 04/18/25 Unknown History gabapentin 100 mg capsule 200 mg PO BID 04/05/24 04/18/25 Unknown History polyethylene glycol 3350 17 gram 17 g PO QAM PRN constipation 04/05/24 04/18/25 Unknown History oral powder packet (Miralax) tamsulosin 0.4 mg capsule 0.8 mg PO DAILY 04/05/24 04/18/25 Unknown History tirzepatide 12.5 mg/0.5 mL 15 mg subcut WEEKLY 04/05/24 04/18/25 Unknown History subcutaneous pen injector (Yanira) albuterol 90 mcg/actuation aerosol 90 mcg inhalation Q4H PRN SOB 01/14/25 04/18/25 Unknown History inhaler cyanocobalamin (vitamin B-12) 1,000 mcg PO DAILY 01/14/25 04/18/25 Unknown History 1,000 mcg tablet cyclobenzaprine 10 mg tablet 10 mg PO TID PRN muscle spasm 01/14/25 04/18/25 Unknown History diclofenac sodium 1 % topical gel 2 g topical QID 01/14/25 04/18/25 Unknown History ipratropium bromide 42 mcg (0.06 2 spray intranasal TID 01/14/25 04/18/25 Unknown History %) nasal spray pantoprazole 40 mg tablet,delayed 40 mg PO Q12H 01/14/25 04/18/25 Unknown History release solifenacin 10 mg tablet mg PO 04/18/25 04/18/25 Unknown History Allergies Allergy/AdvReac Type Severity Reaction Status Date / Time No Known Allergies Allergy Verified 04/29/25 17:49 Review of Systems Review of Systems: All systems reviewed & are unremarkable except as noted in HPI and below Constitutional: Constitutional: Reports as per HPI and Reports no additional constitutional complaints Eyes: Eyes: Reports as per HPI and Reports no additional eye complaints ENT: Reports system reviewed and no additional complaints, except as documented and Reports as per HPI Cardiovascular: Cardiovascular: Reports as per HPI and Reports no additional cardiovascular complaints Respiratory: Respiratory: Reports as per HPI and Reports no additional respiratory complaints Gastrointestinal: Gastrointestinal: Reports as per HPI and Reports no additional gastrointestinal complaints [facility] Past Medical History Medical History Benign prostatic hyperplasia Paroxysmal atrial fibrillation Normal cardiac stress test (01/2021) Diverticulitis Type 2 diabetes mellitus Obstructive sleep apnea on CPAP Hypertension Obesity Peripheral neuropathy Arthritis Surgical History Surgical History History of arthroplasty of left knee (09/24/21) History of tonsillectomy History of appendectomy History of colonoscopy with polypectomy Family History Family History Other Benign prostatic hyperplasia Diabetes mellitus Hypertension Social History Social History Social History: Surrogate decision maker: Vee Justin, spouse. CODE STATUS: Full code. Smoking status: Never smoker Second hand tobacco smoke exposure: No Alcohol intake: never Substance use: never Substance use type: does not use Do You Feel Safe in your Home?: Yes Lack of Transportation: No Lack of Food: Never True Current Housing: I Have Housing Concerned About Future Housing: No Difficulty Paying Gas/Electric Bills: No Difficulty Paying for Meds: No Currently Unemployed: No Education: Associate Degree Difficulty w/ Childcare or Family Care: No Living arrangements: with family Additional living arrangements comments: The patient lives in [place] with his . 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 Spiritual care concerns: No Exam Narrative: Vitals are stable. Const: General: healthy appearing and no acute distress Nutritional Appearance: well nourished Orientation/consciousness: patient oriented x3 Limitations: no limitations HENMT: Head: normal to inspection Ears: external ears normal Face/Nose/Sinus: Normal external nose present Face and sinus: normal facial exam Mouth: Yes Normal oral and palatal mucosa present Throat: posterior oropharynx normal Eyes: Conjunctivae: conjunctivae normal Pupils: Equal, round and reactive pupils present EOM: EOMs intact bilaterally Direct Ophthalmoscopy: no photophobia Neck: Neck: normal visual inspection, no lymphadenopathy and no meningeal signs Chest: Chest palpation & inspection: normal inspection of the chest Resp: Effort & Inspection: normal respiratory effort Auscultation: clear to auscultation bilaterally Cardio: Rate: regular rate Rhythm: regular rhythm GI: GI Palp: Yes Soft to palpation Auscultation: normal bowel sounds Other: No tenderness/rigidity/rebound. : General: Yes no CVA tenderness Back/Spine/Pelvis: Back: no CVA tenderness Skin: General skin exam: normal color Rashes: no rashes Wounds: no wounds Neuro: General: patient oriented x3, moves all extremities, no meningeal signs, no focal motor deficits and CN's II-XI intact bilaterally Cranial nerves: Yes Nystagmus not present Speech: normal speech Extrem: General: normal to inspection and no clubbing, cyanosis or edema Psych: Mental Status: mental status grossly normal Affect: normal affect Course Course Emergency Course: Hyponatremia-patient has a history of chronic hyponatremia. He has had a workup in the past which was negative. He has had normal cortisol, thyroid functions in the past. In spite of 1500 mL fluid restricted diet patient has developed hyponatremia. Patient is asymptomatic Upper respiratory tract infection-tested negative for RSV/influenza/COVID/strep. Normal white count. Chest x-ray is unremarkable. Hyponatremia of 105 corrected to 129. The patient had just received 50 mL of the hypertonic saline. Will give 1 mcg of IV desmopressin to prevent rapid correction. Repeat sodium at midnight was noted to be 127. Will discharge the patient home. During his entire ED stay the patient has been asymptomatic. No headache. No vomiting. Vital Signs Vital signs: Vital Signs Temperature 37.4 C 04/29/25 17:03 Pulse Rate 60 04/29/25 17:03 Respiratory Rate 20 04/29/25 17:03 Blood Pressure 140/77 04/29/25 17:03 Pulse Oximetry 98 04/29/25 17:03 Oxygen Delivery Room Air 04/29/25 17:03 Temperature 37.4 C 04/29/25 17:03 Pulse Rate 58 L 04/30/25 00:31 Respiratory Rate 16 04/30/25 00:31 Blood Pressure 116/70 04/30/25 00:31 Pulse Oximetry 94 04/30/25 00:31 Oxygen Delivery Room Air 04/30/25 00:31 Medical Decision Making [facility] Narrative Medical decision making narrative: Hyponatremia Differential Diagnosis Differential Diagnosis: Electrolyte imbalance Vital Signs Vital Signs: Vital Signs Temperature 37.4 C 04/29/25 17:03 Pulse Rate 60 04/29/25 17:03 Respiratory Rate 20 04/29/25 17:03 Blood Pressure 140/77 04/29/25 17:03 Pulse Oximetry 98 04/29/25 17:03 Oxygen Delivery Room Air 04/29/25 17:03 Temperature 37.4 C 04/29/25 17:03 Pulse Rate 58 L 04/30/25 00:31 Respiratory Rate 16 04/30/25 00:31 Blood Pressure 116/70 04/30/25 00:31 Pulse Oximetry 94 04/30/25 00:31 Oxygen Delivery Room Air 04/30/25 00:31 Lab Data Lab results reviewed: Yes I reviewed the patient's lab results. 04/30/25 00:08 Labs: Lab Results 04/29/25 04/30/25 Range/Units 18:57 00:08 Sodium 129 L 127 L (137-145) mmol/L Potassium 4.3 4.1 (3.4-5.0) mmol/L Chloride 97 L 98 (98-107) mmol/L Carbon Dioxide 26 25 (22-30) mmol/L Anion Gap 6 4 (4-12) mmol/L BUN 17 16 (9-20) mg/dL Creatinine 1.12 1.03 (0.7-1.3) mg/dL Estim Creat Clear Calc 60 65 ml/min Estimated GFR > 60 > 60 (59 - ) Glucose 84 94 (65-110) mg/dL Calculated Osmolality 268 L 265 L (285-295) mOsm/kg Calcium 8.6 8.5 (8.4-10.2) mg/dL Magnesium 2.2 (1.6-2.3) mg/dL Troponin I < 0.012 (0.000-0.034) ng/mL NT-Pro-B Natriuret Pep 179 H (19.9-100) pg/mL TSH 0.837 (0.465-4.680) uIU/mL Urine Color Light yellow (Yellow) Urine Appearance Clear (Clear) Urine pH 7.0 (5.0-8.0) Ur Specific [place] 1.010 (1.010-1.020) Urine Protein Negative (Negative) Urine Glucose (UA) Negative (Negative) Urine Ketones Trace H (Negative) Ur Blood (Man) Negative (Negative) Urine Nitrate Positive H (Negative) Urine Bilirubin Negative (Negative) Urine Urobilinogen 0.2 (0.2-1.0) mg/dL Ur Leukocyte Esterase Negative (Negative) Urine WBC 0-3 (0-3) /hpf Urine Bacteria 4+ H (None) /hpf Discharge Plan Discharge Clinical Impression: Hyponatremia Patient Disposition: Home Condition: Stable Instructions: Antibiotic Form, Hyponatremia (ED) Patient Language: Urdu Prescriptions: No Action ipratropium bromide 42 mcg (0.06 %) spray,non-aerosol 2 spray INTRANASAL TID diclofenac sodium 1 % gel 2 g topical QID Rx Instructions: affected area pantoprazole 40 mg tablet,delayed release (DR/EC) 40 mg PO Q12H cyanocobalamin (vitamin B-12) 1,000 mcg tablet 1,000 mcg PO DAILY cyclobenzaprine 10 mg tablet 10 mg PO TID PRN (Reason: muscle spasm) albuterol 90 mcg/actuation aerosol 90 mcg inhalation Q4H PRN (Reason: SOB) Rx Instructions: 2 puffs as needed sodium chloride 1,000 mg Tablet,Soluble 1,000 mg PO BID Qty: 20 0RF amoxicillin-pot clavulanate [Augmentin] 500-125 mg tablet 1 tablet PO Q12H Qty: 14 0RF hydralazine 25 mg tablet 75 mg PO TID timolol 0.5 % drops 1 drp RIGHT EYE Q12H losartan 100 mg tablet 100 mg PO DAILY Eliquis 5 mg tablet 5 mg PO BID polyethylene glycol 3350 [Miralax] 17 gram powder in packet 17 g PO QAM PRN (Reason: constipation) Mounjaro 12.5 mg/0.5 mL pen injector 15 mg subcut WEEKLY tamsulosin 0.4 mg capsule 0.8 mg PO DAILY gabapentin 100 mg capsule 200 mg PO BID solifenacin 10 mg tablet PO fluticasone propionate 50 mcg/actuation spray,suspension 2 spray INTRANASAL HS metformin 500 mg tablet extended release 24 hr 1,000 mg PO BID flecainide 100 mg tablet See Rx Instructions .ROUTE .COMPLEX Qty: 180 2RF Dose Instruction: TAKE 1 TABLET BY MOUTH EVERY 12 HOURS Rx Instructions: TAKE 1 TABLET BY MOUTH EVERY 12 HOURS metoprolol succinate 25 mg tablet extended release 24 hr See Rx Instructions .ROUTE .COMPLEX Qty: 45 2RF Dose Instruction: TAKE 1/2 TABLET BY MOUTH DAILY Rx Instructions: TAKE 1/2 TABLET BY MOUTH DAILY Follow-up/Referrals: Gretchen Jeffrey MD [Primary Care Provider, Internal Medicine] Time of Disposition: 00:39
--- NOTE | 2025-04-29 17:46 | PC.NURSE ---
attempted to get ns3% from [employer], not available. global search . not available. call placed to popeye ferraro , will check global and pharmacy.
--- OUTSIDE RECORDS SUMMARY | 2025-04-29 17:50 | XMS_ITS | Data Portability ---
Author Organization [facility], [address] [facility] ([place]) Address [address] [address] Care Team Providers Care Financial Investment Manager Name Role Phone KODI GONZALEZ Primary Care Provider [phone] Assessment Encounter Date Assessment Date Assessment LastModified by Organization Details LastModified Time 12/15/2023 12/15/2023 Plan: Refer to PT in [facility] for balance training and strengthening Consider MRI [...] we will proceed with physical therapy at [facility] to see if we can improve some [...] on this date of service including both [id number] and pew-yctw-wf-face time excluding any separately reportable services. urszula hendrickson Not available 12/15/2023 11:30:03 Plan of Treatment Reminders Order Date Submit Date Provider Last Modified By Organization Details Last Modified Time Details Appointments None recorded. Lab None recorded. Referral physical therapist referral 2023 024 [facility], [address] [facility], [place], [address], 4 11:03:06 Procedures None recorded. Surgeries None [...] Organization Details Recorded Time Idiopathic peripheral neuropathy 35291706 Active 024 Camila Senior MD [address] [place] [address], [phone], [facility] 4 10:51:37 Small fiber neuropathy 601408742 Active 024 Camila Senior MD [address] [place] [address], [phone], [facility] 4 10:51:42 Sensory ataxia 568488069 Active 024 Camila Senior MD [address] [place] [address], [phone], [facility] 4 10:51:50 Problem Notes None [...] Updated DateTime 4 190.5 cm 35.7 kg/m2 807357. 42 g 73 /min 96 % 96 % 117/57 mm[Hg] [facility] 4 10:36:33 Social History None recorded. Functional Status None recorded. Mental Status None recorded. Family History Nothing Reported. Medical History No medical history recorded. Past Encounters Encounter ID Performer Location Encounter Start Date Encounter Closed Date Diagnosis/Indication Diagnosis SNOMED-CT Code Diagnosis ICD10 Code Diagnosis IMO Codes Diagnosis Note [id number] Camila Senior MD [facility] ([place]) [address] [place] [address] 12/15/2023 10:33:29 12/20/2023 05:36:46 Small fiber neuropathy 414937364 G62.89 Sensory ataxia 312371321 R27.0 Health Concerns Section Related Observation LastModified by Organization Detai ls LastModified Time None Recorded Concern Status LastModified by Organization Details LastModified Time None Recorded Advance Directives Directive None Recorded Payers Insurance Date Sequence Insurance Name Policy Number Policy Elizabeth Covered Member ID Elizabeth Member ID Guarantor Name 12/20/2023 1 [facility] (MEDICARE REPLACEMENT/A DVANTAGE - PPO) [id number] Yossi Malagonn [id number] Yossi Justin Notes Date Note Type Note [...] long duration. Camila Senior MD [address] [place] [address], [phone], [place] [facility] 12/19/2023 10:27:52
[2025-04-29] MEDS: SODIUM CHLORIDE 3% 100 ML 50 ML IV CONT (18:15)
--- NOTE | 2025-04-29 18:41 | ECG_ITS ---
Test Date: 2025-04-29 18:52:[address] [facility] Rate: 66 P: 87 TN: 292 QRS: -20 QRSD: 163 T: 19 QT: 464 QTc: 488 Interpretive Statements SINUS RHYTHM WITH FIRST DEGREE AV BLOCK WITH OCCASIONAL SUPRAVENTRICULAR PREMATURE COMPLEXES RIGHT BUNDLE BRANCH BLOCK INFERIOR INFARCT, AGE INDETERMINATE BASELINE ARTIFACT- I, II, III, AVR, AVL, AVF, V1-V6 ABNORMAL ECG Compared to ECG 04/18/2025 15:44:10 HEART RATE HAS INCREASED First degree AV block now present Electronically Signed On 04-29-2025 20:11:22 CDT by Amrik Fonseca D.O.
--- NOTE | 2025-04-29 18:53 | PC.NURSE ---
ASSUMED CARE. REPORT RECEIVED FROM FRANCISCO CONWAY. PATIENT CURRENTLY RESTING ON STRETCHER. NS 3% INFUSING TO RIGHT HAND. CURRENTLY DENIES ANY NEEDS. LAB AT THE BEDSIDE. CALL LIGHT IN REACH. AT HIS SIDE
[2025-04-29 19:05] LABS: Add Urine Microscopic? YES; Appearance Urine Clear (Clear); Glucose Urine UA Negative (Negative); Leukocyte Esterase Ur Negative (Negative); Nitrate Urine Positive (Negative); Specific Grav Ur 1.010 (1.010-1.020)
--- NOTE | 2025-04-29 19:30 | PC.NURSE ---
PATIENT RESTING ON STRETCHER WITH AT HIS SIDE. CALL LIGHT IN REACH
[2025-04-29 19:31] LABS: Anion Gap 6 mmol/L (4-12); Blood Urea Nitrogen 17 mg/dL (9-20); Calcium 8.6 mg/dL (8.4-10.2); Carbon Dioxide 26 mmol/L (22-30); Chloride 97 mmol/L (98-107); Estimated CRCL calculation 60 ml/min; Estimated Glomerular Filt Rate > 60; Glucose 84 mg/dL (65-110); Magnesium 2.2 mg/dL (1.6-2.3); Osmolality Calculated 268 mOsm/kg (285-295); Potassium 4.3 mmol/L (3.4-5.0); Sodium 129 mmol/L (137-145)
[2025-04-29 19:43] LABS: Troponin I < 0.012 ng/mL (0.000-0.034)
[2025-04-29 20:27] LABS: NT Pro B Type Natriuretic Pept 179 pg/mL (19.9-100); Thyroid Stimulating Hormone 0.837 uIU/mL (0.465-4.680)
--- NOTE | 2025-04-29 20:30 | PC.NURSE ---
PATIENT WENT HOME. PATIENT IS RESTING ON STRETCHER. PLAN IS TO REDRAW SODIUM AT MIDNIGHT. PATIENT VERBALIZED UNDERSTANDING. CALL LIGHT IN REACH
[2025-04-29] MEDS: DESMOPRESSIN ACETATE 4 MCG/ML AMP 1 MCG IV PUSH (20:45)
--- NOTE | 2025-04-29 21:19 | PC.NURSE ---
PATIENT IS RESTING ON STRETCHER. REQUESTED WARM WATER FOR HIS THROAT. HALF CUP OF WARM WATER GIVEN. CALL LIGHT IN REACH
--- NOTE | 2025-04-29 22:30 | PC.NURSE ---
PATIENT IS RESTING ON STRETCHER. WAITING TO HAVE LAB DRAWN AT MIDNIGHT. PATIENT WAS GIVEN A SANDWICH TO EAT. WARM WATER TO DRINK. PATIENT CURRENTLY DENIES ANY NEEDS. CALL LIGHT IN REACH
--- NOTE | 2025-04-30 00:03 | PC.NURSE ---
MICHELE WITH LAB AT THE BEDSIDE. PATIENT REPORTS THAT HE IS READY TO GO HOME
[2025-04-30 00:29] VITALS: BP 112/88; PULSE 59; RESP 14; O2SAT 95
[2025-04-30 00:31] VITALS: BP 116/70; PULSE 58; RESP 16; O2SAT 94
[2025-04-30 00:35] LABS: Anion Gap 4 mmol/L (4-12); Blood Urea Nitrogen 16 mg/dL (9-20); Calcium 8.5 mg/dL (8.4-10.2); Carbon Dioxide 25 mmol/L (22-30); Chloride 98 mmol/L (98-107); Estimated CRCL calculation 65 ml/min; Estimated Glomerular Filt Rate > 60; Glucose 94 mg/dL (65-110); Osmolality Calculated 265 mOsm/kg (285-295); Potassium 4.1 mmol/L (3.4-5.0); Sodium 127 mmol/L (137-145)
--- NOTE | 2025-04-30 00:37 | PC.NURSE ---
DR STONE NOTIFIED OF NEW SODIUM LEVEL
--- NOTE | 2025-04-30 00:42 | PC.NURSE ---
PATIENT TAKEN OFF ASSISTANT EDUCATION DIRECTOR. HELPED PATIENT TO SIT ON THE SIDE OF THE BED. PATIENT IS CALLING HIS AT THIS TIME. ONCE HE IS DONE WITH THAT HE WILL WALK DOWN TO THE BATHROOM. DENIES BEING DIZZY
--- NOTE | 2025-04-30 01:01 | PC.NURSE ---
PATIENT SITTING ON THE SIDE OF THE BED WAITING ON TO ARRIVE. CURRENTLY DENIES ANY NEEDS. CALL LIGHT IN REACH
--- NOTE | 2025-04-30 01:26 | PC.NURSE ---
PATIENT IS RESTING IN ROOM. WAITING ON TO ARRIVE. DENIES ANY NEEDS. CALL LIGHT IN REACH
[2025-04-30 01:48] VITALS: BP 118/82; PULSE 60; RESP 18; O2SAT 96
--- NOTE | 2025-05-02 14:46 | PC.NURSE ---
PRELIMINARY URINE CULTURE REPORT; GRAM NEGATIVE BACILLI ISOLATED. WILL WAIT FOR FINAL CULTURE AND SENSATIVITY.
--- NOTE | 2025-05-03 15:19 | PC.NURSE ---
FINAL URINE CULTURE REPORT: KLEBSIELLA PNEUMONIAE. PT NOT SENT HOME ON ANY TREATMENT. MD ROSHNI SENT IN CIPROFLOXACIN 500 MG PO BID X 10 DAYS FOR NEW COURSE OF TREATMENT. PT CONTACTED AND UPDATED ON NEW COURSE OF ACTION. PT HAS NO QUESTIONS OR CONCERNS AT THIS TIME.
== END 2025-04-30 01:48 | disposition home or self-care (01) ==
PROVIDERS: Emergency Provider Internal Medicine Critical Care Medicine; PCP Internal Medicine
DX: E87.1 Hypo-osmolality and hyponatremia (principal); I48.0 Paroxysmal atrial fibrillation; E11.9 Type 2 diabetes mellitus without complications; I10 Essential (primary) hypertension; Z79.01 Long term (current) use of anticoagulants; Z79.899 Other long term (current) drug therapy
CPT/HCPCS: 36415; 80048; 81001; 83735; 83880; 84443; 84484; 87077; 87086; 87186; 93005; 96361; 96374; 99284; J2597; J7131

== ENCOUNTER 2025-06-29 09:51 | Outpatient (CLI) | payer MEDICARE, SELFPAY ==
--- OUTSIDE RECORDS SUMMARY | 2025-06-29 10:02 | XMS_ITS | Encounter Summary ---
Author Organization [facility] Address [address] [place] [address] Care Team Providers Care Weekend Receptionist Name Role Phone Unavailable Primary Care Provider Unavailabl e Encounter Details Date Type Department Care Team (Late st Contact Info) Description 12/05/2018 Abstract [facility]FL CONVERSION [address] [place] [address] , Generic Conversion, Social History [...]
--- OUTSIDE RECORDS SUMMARY | 2025-06-29 10:02 | XMS_ITS | Clinical Summary ---
Author Organization [facility] Address [address] [place] [address] Care Team Providers Care Publicity Agent Name Role Phone Unavailable Primary Care Provider [...] Comments Blood Pressure 138/62 06/16/2015 1:35 PM CONSTRUCTION DIRECTOR Pulse 40 06/16/2015 1:35 PM CONSTRUCTION DIRECTOR Temperature - - Respiratory Rate 18 06/16/2015 1:35 PM CONSTRUCTION DIRECTOR Oxygen Saturation - - Inhaled Oxygen Concentration - - Weight 136.5 kg (301 lb) 06/16/2015 1:35 PM CONSTRUCTION DIRECTOR Height 190.5 cm (6' 3) 06/16/2015 1:35 PM CONSTRUCTION DIRECTOR Body Mass Index 37.62 06/16/2015 1:35 PM CONSTRUCTION DIRECTOR Plan of Treatment Health Maintenance Due Date [...]
[2025-06-29 10:50] LABS: Albumin Level 4.6 g/dL (3.5-5.1); Anion Gap 10 mmol/L (4-12); Blood Urea Nitrogen 13 mg/dL (9-20); Calcium 9.5 mg/dL (8.4-10.2); Carbon Dioxide 27 mmol/L (22-30); Chloride 99 mmol/L (98-107); Estimated Glomerular Filt Rate > 60; Glucose 99 mg/dL (65-110); Osmolality Calculated 282 mOsm/kg (285-295); Potassium 4.5 mmol/L (3.4-5.0); Sodium 136 mmol/L (137-145); Uric Acid 2.7 mg/dL (3.5-8.5)
[2025-06-29 11:20] LABS: Thyroid Stimulating Hormone 1.250 uIU/mL (0.465-4.680)
[2025-06-29 11:44] LABS: Total Protein Urine Random 12 mg/dL; Ur Ttl Prot Creatinine Ratio 0.19 mg/mg (0-0.20)
[2025-06-30 16:07] LABS: Albumin 3.9 g/dL (2.9-4.4); Alpha-1-Globulin 0.2 g/dL (0.0-0.4); Alpha-2-Globulin 0.8 g/dL (0.4-1.0); Gamma Globulin 1.4 g/dL (0.4-1.8)
[2025-07-02 02:07] LABS: Osmolality, Urine 354 mOsmol/kg (.)
[2025-07-02 19:08] LABS: Osmolality, Serum 272 mOsmol/kg (280-301)
[2025-07-04 14:08] LABS: Albumin, U 40.8 % (.); Alpha-1-Globulin, U 8.0 % (.); Alpha-2-Globulin, U 15.6 % (.); Beta Globulin, U 22.9 % (.); Gamma Globulin, U 12.7 % (.)
== END 2025-06-29 09:52 | disposition home or self-care (01) ==
LOC: CHSLAB 09:52
PROVIDERS: PCP Internal Medicine; Visit Provider Internal Medicine Nephrology
DX: I48.91 Unspecified atrial fibrillation (principal); E87.1 Hypo-osmolality and hyponatremia
CPT/HCPCS: 36415; 80069; 82533; 82570; 83930; 83935; 84155; 84156; 84165; 84166; 84300; 84443; 84550